=== PATIENT | female | born 1940 | race Caucasian/White ===

== ENCOUNTER → 2023-07-09 14:56 | Outpatient (REF) | payer OTHER, SELFPAY | LOC: WDC 14:56 | PROVIDERS: ATTENDING PHYSICIAN Internal Medicine | DX: Z12.31 Encounter for screening mammogram for malignant neoplasm of breast (principal) | CPT/HCPCS: 77062; 77063; 77066; 77067 ==

== ENCOUNTER → 2023-08-06 13:47 | Outpatient (REF) | payer OTHER, SELFPAY | LOC: RAD 13:47 | PROVIDERS: ATTENDING PHYSICIAN Internal Medicine | DX: T18.9XXA Foreign body of alimentary tract, part unspecified, initial encounter (principal) | CPT/HCPCS: 71046; 74018 ==

== ENCOUNTER → 2024-04-28 16:21 | Outpatient (REF) | payer MEDICARE, SELFPAY | LOC: RAD 16:21 | PROVIDERS: ATTENDING PHYSICIAN Internal Medicine Critical Care Medicine; FAMILY PHYSICIAN Internal Medicine | DX: J84.10 Pulmonary fibrosis, unspecified (principal); R59.0 Localized enlarged lymph nodes | CPT/HCPCS: 71250 ==

== ENCOUNTER 2024-05-12 15:56 | Emergency (ER) | payer MEDICARE, SELFPAY ==
[2024-05-12 16:02] VITALS: BP 133/78
[2024-05-12 16:19] LABS: % Basophils 0.5 % (0-2); % Eosinophils 4.7 % (0-6); % Immature Granulocytes 0.3 % (0-0.5); % Lymphocytes 16.7 % (20.5-51.1); % Monocytes 11.1 % (1.7-9.3); % Neutrophils 66.7 % (42.2-75.2); Absolute Basophils 0.1 10^3/uL (0-0.2); Absolute Eosinophils 0.5 10^3/uL (0-0.7); Absolute Lymphocytes 1.7 10^3/uL (1.2-3.4); Absolute Monocytes 1.1 10^3/uL (0.1-0.6); Absolute Neutrophils 6.7 10^3/uL (1.4-6.5); Hematocrit 30.9 % (37.0-47.0); Hemoglobin 10.5 g/dL (12.0-16.0); Mean Corpuscular Volume 94.2 fL (81.0-99.0); Nucleated Red Blood Cells % 0 %; Platelet Count 256 10^3/uL (130-400); Red Blood Cell Count 3.28 10^6/uL (4.20-5.40); Red Cell Dist. Width 13.4 % (11.5-14.5); White Blood Cell Count 10.1 10^3/uL (4.8-10.8)
[2024-05-12 16:32] LABS: ALT (SGPT) 20 U/L (0-35); AST (SGOT) 33 U/L (14-36); Albumin 3.9 g/dl (3.5-5.0); Alkaline Phosphatase 46 U/L (38-126); Blood Urea Nitrogen 28 mg/dl (7-17); Calcium 9.6 mg/dl (8.4-10.2); Carbon Dioxide 26 mmol/L (22-30); Chloride 103 mmol/L (98-107); Glucose 98 mg/dl (70-99); Sodium 136 mmol/L (135-145); Total Bilirubin 0.3 mg/dl (0.2-1.3); Total Protein 6.8 g/dl (6.3-8.2); eGFR > 60.00
[2024-05-12 16:37] LABS: Potassium 3.7 mmol/L (3.5-5.1)
[2024-05-12 16:50] LABS: Troponin I < 0.012 ng/ml
[2024-05-12 16:57] VITALS: BP 102/91
[2024-05-12 17:00] VITALS: BP 119/58
[2024-05-12 18:00] VITALS: BP 88/55
--- NOTE | 2024-05-12 18:00 | ED.GENMED ---
History of Present Illness
General
Chief Complaint: Chest Pain
Source: patient
Time Seen by Provider: 05/12/24 17:43
History of Present Illness
History of Present Illness:
83-year-old female presents complaining of left-sided chest comfort that started at 9 AM this morning. She was sitting at the table when this started. She has a history of severe scoliosis and often has left sided back discomfort. It felt like
her back discomfort radiated to her chest this morning. Since the pain started it has completely resolved. There is no pleuritic component to this. She is not short of breath. She is healthy otherwise. No other complaints at this time
Past History
Past History
ED Past Medical History: Hypercholesterolemia, Hypothyroidism and Other (Hypothyroidism, previous fractured ribs on the right posterior)
ED Past Surgical History: Appendectomy, , Gynecological (Hysterectomy) and Other (Thyroidectomy)
Social History
Tobacco: Smoker
Alcohol: None
Living: with family
Family History
Family History: Negative Diabetes, Early CAD or CAD
Phy Exam
Physical Exam
Physical Exam:
General: Well-appearing female no acute respiratory distress
HEENT: Normocephalic atraumatic neck is supple
Heart: Regular rate and rhythm no murmurs
Lungs: Clear no wheeze
Abdomen soft nontender nondistended
Extremities: No cyanosis
Scores
Heart Score for Chest Pain Patients
STEMI patient?: No
History: Slightly or Non-Suspicious
ECG: Normal
Age: >/= 65 years
Risk Factors: 1 or 2 Risk Factors
Troponin: </= Normal Limit
Heart Score for Chest Pain Patients: 3
Heart Score Risk: 2.5% MACE over next 6 weeks
Course
Orders/Labs/Results
Orders:
Orders
05/12/24 15:57
EKG [Electrocardiogram (*1)] Urgent
Reason for Study: Chest Pain
EKG- Treatment ONCE
05/12/24 16:12
Complete Blood Count/With Diff Urgent
Comprehensive Metabolic Panel Urgent
Troponin I Urgent
05/12/24 17:54
CR Chest - 2 Views Urgent
Comment:
Reason For Exam: chest pain
05/12/24 18:05
Troponin I Urgent
Abnormal Lab Results
05/12/24
16:12
RBC 3.28 L 10^6/uL
(4.20-5.40)
Hgb 10.5 L g/dL
(12.0-16.0)
Hct 30.9 L %
(37.0-47.0)
MCH 32.0 H pg
(27.0-31.0)
Absolute Neuts (auto) 6.7 H 10^3/uL
(1.4-6.5)
Absolute Monos (auto) 1.1 H 10^3/uL
(0.1-0.6)
Lymphocytes % 16.7 L %
(20.5-51.1)
Monocytes % 11.1 H %
(1.7-9.3)
BUN 28 H mg/dl
(7-17)
05/12/24 16:12
05/12/24 16:12
Vital Signs
Initial and Last Documented VS:
Initial Vital Signs
Temp Pulse Resp BP Pulse Ox
98.2 F 86 16 133/78 99
05/12/24 16:02 05/12/24 16:02 05/12/24 16:02 05/12/24 16:02 05/12/24 16:02
Last Documented Vital Signs
Temp Pulse Resp BP Pulse Ox
98.2 F 80 18 119/58 98
05/12/24 16:02 05/12/24 17:00 05/12/24 17:00 05/12/24 17:00 05/12/24 17:00
MDM/Problems Addressed
Differential Diagnosis Includes:
Left chest pain now resolved. Consider ACS versus musculoskeletal pain. Unlikely to be PE or dissection given resolution of symptoms and stable vital signs.
EKG shows sinus rhythm troponin initially undetectable. Repeat troponin is pending. Chest x-ray pending
*Critical Care Note
Total Time (30-74mins, 75-104mins- exclusive of procedures): Not Applicable
Update Note
Update Note:
Repeat troponin undetectable. Chest x-ray clear. Suspect musculoskeletal chest discomfort as source of pain however given her age, will refer to cardiology as outpatient
ED Attending Note
-
Portions of this chart may have been created with voice recognition software.� Occasional wrong word or��sound alike� substitutions may have occurred due to the inherent limitations of voice recognition software.
Discharge Plan
Departure
Patient Disposition: Home (Routine Discharge)
Date of Disposition: 05/12/24
Time of Disposition: 19:13
Patient with high blood pressure during this ER visit?: No
Discharge Problem:
Chest pain
Instructions: Chest Pain CBC Follow Up
Prescriptions:
No Action
paroxetine HCl 10 MG tablet
10 mg PO DAILY
alprazolam 0.5 MG tablet
0.5 mg PO PRN PRN (Reason: anxiety/sleep)
ascorbic acid (vitamin C) 250 MG tablet
500 mg PO DAILY
levothyroxine 75 MCG capsule
75 mcg PO DAILY
Calcium 60 MG Tab
60 mg PO TID
Vitamin D3 1 CAPSULE Capsule
2 cap PO DAILY
Referrals:
Natasha George NP [Family Provider] -
Activity Restrictions/Additional Instructions:
Please return here for worsening symptoms otherwise follow-up with your doctor. Cardiology office should call you to discuss follow-up
Interventions
Interventions:
*Risk Screen - Suicide Last Done: 05/12/24 16:02
*Neglect/Abuse Screening Last Done: 05/12/24 16:02
ED- Fall Risk Assessment Last Done: 05/12/24 19:05
ED- Cardiac Assessment Last Done: 05/12/24 19:05
Discharge Date and Time
Print Language: JAPANESE
[2024-05-12 18:49] LABS: Troponin I < 0.012 ng/ml
[2024-05-12 19:00] VITALS: BP 132/84
== END 2024-05-12 19:26 | disposition home or self-care (01) ==
LOC: EMR 15:56
PROVIDERS: Physician Assistant; EMERGENCY PHYSICIAN Emergency Medicine; FAMILY PHYSICIAN Internal Medicine
DX: R07.89 Other chest pain (principal); M41.9 Scoliosis, unspecified; E78.00 Pure hypercholesterolemia, unspecified; E03.9 Hypothyroidism, unspecified; F17.200 Nicotine dependence, unspecified, uncomplicated; Z90.49 Acquired absence of other specified parts of digestive tract; Z90.710 Acquired absence of both cervix and uterus
CPT/HCPCS: 99283; 71046; 80053; 84484; 85025; 93005

== ENCOUNTER 2024-05-14 16:13 | Emergency (ER) | payer MEDICARE, SELFPAY ==
[2024-05-14] VITALS (11 sets, daily range): BP systolic 103–132; BP diastolic 51–84
[2024-05-14 16:56] LABS: % Basophils 0.6 % (0-2); % Eosinophils 9.9 % (0-6); % Immature Granulocytes 0.4 % (0-0.5); % Lymphocytes 22.4 % (20.5-51.1); % Monocytes 10.6 % (1.7-9.3); % Neutrophils 56.1 % (42.2-75.2); Absolute Basophils 0.1 10^3/uL (0-0.2); Absolute Eosinophils 0.8 10^3/uL (0-0.7); Absolute Lymphocytes 1.8 10^3/uL (1.2-3.4); Absolute Monocytes 0.9 10^3/uL (0.1-0.6); Absolute Neutrophils 4.6 10^3/uL (1.4-6.5); Hematocrit 28.8 % (37.0-47.0); Mean Corp Hgb Conc. 34.7 g/dL (33.0-37.0); Mean Corpuscular Hgb 32.7 pg (27.0-31.0); Mean Corpuscular Volume 94.1 fL (81.0-99.0); Mean Platelet Volume 9.3 fL (7.4-10.4); Nucleated Red Blood Cells % 0 %; Platelet Count 289 10^3/uL (130-400); Red Blood Cell Count 3.06 10^6/uL (4.20-5.40); Red Cell Dist. Width 13.4 % (11.5-14.5); White Blood Cell Count 8.2 10^3/uL (4.8-10.8)
[2024-05-14 17:06] LABS: ALT (SGPT) 25 U/L (0-35); AST (SGOT) 36 U/L (14-36); Albumin 3.9 g/dl (3.5-5.0); Alkaline Phosphatase 50 U/L (38-126); Blood Urea Nitrogen 29 mg/dl (7-17); Calcium 9.8 mg/dl (8.4-10.2); Carbon Dioxide 26 mmol/L (22-30); Chloride 103 mmol/L (98-107); Glucose 108 mg/dl (70-99); Potassium 4.1 mmol/L (3.5-5.1); Sodium 138 mmol/L (135-145); Total Bilirubin 0.1 mg/dl (0.2-1.3); Total Protein 6.7 g/dl (6.3-8.2); eGFR > 60.00
[2024-05-14 17:15] LABS: Troponin I 0.015 ng/ml
[2024-05-14 22:46] LABS: Troponin I 0.018 ng/ml
--- NOTE | 2024-05-14 22:49 | ED.GENMED ---
History of Present Illness
General
Chief Complaint: Chest Pain
Time Seen by Provider: 05/14/24 22:09
History of Present Illness
History of Present Illness:
83-year-old female with history of scoliosis presenting to the emergency department for left-sided chest pain. Patient reports intermittent symptoms in the past several days, left-sided, radiates from her back. She believes that it is her
scoliosis that is worsening and causing her symptoms. She reports upon arrival to the hospital today her pain improved. Patient was additionally seen in the hospital on 03/12 for similar symptoms, negative workup at that time. She has since made
an appointment with orthopedics and cardiology. She arrives with son who lives with her who was also concerned that she had an episode of fatigue/weakness, and seemed to be slurring her words. She also seemed confused which is not her baseline.
Patient herself denies confusion or issues with her speech. She denies any recent fall or trauma. She denies any focal weakness or numbness to her extremities. She denies any visual changes. She denies additional acute medical complaints
Past History
Past History
ED Past Medical History: Hypercholesterolemia, Hypothyroidism and Other (Hypothyroidism, previous fractured ribs on the right posterior)
ED Past Surgical History: Appendectomy, , Gynecological (Hysterectomy) and Other (Thyroidectomy)
Social History
Tobacco: Smoker
Alcohol: None
Living: with family
Family History
Family History: Negative Diabetes, Early CAD or CAD
Phy Exam
Physical Exam
Physical Exam:
General: Well-appearing, no clinical signs of dehydration, nontoxic and in no acute distress
HEENT: protecting airway, pupils equal and reactive bilaterally, extraocular movements intact
Neck: appears supple
CV: Normal heart rate, regular rhythm
Resp: No accessory muscle use, no increased work of breathing, lungs clear to auscultation bilaterally
Abd: Soft and non-distended, no tenderness to palpation, normal bowel sounds
Extremities: No deformities, no swelling
Neuro: alert, no focal neurologic deficit
: deferred
Rectal: deferred
Psych: Normal affect
Skin: Intact
Scores
Heart Score for Chest Pain Patients
STEMI patient?: No
History: Slightly or Non-Suspicious
ECG: Normal
Age: >/= 65 years
Risk Factors: 1 or 2 Risk Factors
Troponin: </= Normal Limit
Heart Score for Chest Pain Patients: 3
Heart Score Risk: 2.5% MACE over next 6 weeks
Course
Orders/Labs/Results
Orders:
Orders
05/14/24 16:15
ECG [Electrocardiogram (*1)] Urgent
Reason for Study: Chest Pain
EKG- Treatment ONCE
05/14/24 16:39
Complete Blood Count/With Diff Urgent
Comprehensive Metabolic Panel Urgent
Troponin I Urgent
05/14/24 17:58
CT Head W/o Iv Contrast Urgent
Comment:
Reason For Exam: garbled speech
05/14/24 22:15
Troponin I Urgent
Abnormal Lab Results
05/14/24
16:39
RBC 3.06 L 10^6/uL
(4.20-5.40)
Hgb 10.0 L g/dL
(12.0-16.0)
Hct 28.8 L %
(37.0-47.0)
MCH 32.7 H pg
(27.0-31.0)
Absolute Monos (auto) 0.9 H 10^3/uL
(0.1-0.6)
Absolute Eos (auto) 0.8 H 10^3/uL
(0-0.7)
Monocytes % 10.6 H %
(1.7-9.3)
Eosinophils % 9.9 H %
(0-6)
BUN 29 H mg/dl
(7-17)
Glucose 108 H mg/dl
(70-99)
Total Bilirubin 0.1 L mg/dl
(0.2-1.3)
05/14/24 16:39
05/14/24 16:39
Vital Signs
Initial and Last Documented VS:
Initial Vital Signs
Temp Pulse Resp BP Pulse Ox
97.7 F 84 20 132/84 100
05/14/24 16:33 05/14/24 16:33 05/14/24 16:33 05/14/24 16:33 05/14/24 16:33
Last Documented Vital Signs
Temp Pulse Resp BP Pulse Ox
97.7 F 96 15 107/69 95
05/14/24 16:33 05/14/24 23:13 05/14/24 23:15 05/14/24 23:13 05/14/24 23:13
MDM/Problems Addressed
MDM/Problems Addressed:
83-year-old female presenting to the emergency department for left-sided chest pain and episode of confusion. Vital signs on arrival are normal.
On exam patient is resting comfortably, currently asymptomatic. Patient with unremarkable cardiac, pulmonary, neurologic exam. She is awake, alert, oriented x 3 with no focal neurologic. Patient had EKG prior to my assessment, unchanged from
05/11 without acute ischemic abnormality. Patient also had laboratory analysis, unremarkable. Per nursing protocol and report of preceding confusion and episode of garbled speech, patient had a CT brain, also negative for acute intracranial
abnormality. Given that patient is asymptomatic and no focal neurologic deficits, lower suspicion for acute CVA. Patient's initial troponin here is 0.015, within normal range, however slightly increased from prior on 05/12. For this reason we
will repeat to ensure no significant interval change. Do suspect possible musculoskeletal component.
23:00 - Repeat troponin without significant interval elevation. Patient remains asymptomatic. Feel stable for discharge with close interval follow-up with cardiology. Regarding brief episode of garbled speech and alleged confusion, TIA is a
consideration. Patient at this time would prefer to go home, feel reasonable. However, with close interval follow-up with her doctor. Strict return precautions were communicated to patient and son at bedside, advise looking out for any change in
mental status, or any additional acute neurologic symptoms. Patient and son verbalized understanding.
*EKG
Interpreted by ED Provider?: Yes
EKG Intrepretation Date: 05/14/24
EKG Intrepretation Time: 22:52
Interpretation: normal
Comparison EKG: no changes (05/11/24)
Heart Rate: 80
Rate: normal
Rhythm: sinus
[place]: normal axis
Interval: normal interval
QRS Pattern: normal QRS
Ischemia: no ischemia
*Critical Care Note
Total Time (30-74mins, 75-104mins- exclusive of procedures): Not Applicable
ED Attending Note
-
Portions of this chart may have been created with voice recognition software.� Occasional wrong word or��sound alike� substitutions may have occurred due to the inherent limitations of voice recognition software.
Discharge Plan
Departure
Patient Disposition: Home (Routine Discharge)
Date of Disposition: 05/14/24
Time of Disposition: 23:05
Patient with high blood pressure during this ER visit?: No
Condition: Good
Discharge Problem:
Chest pain, Episode of change in speech
Instructions: Delirium (confusion), Chest pain - Discharge instructions
Prescriptions:
No Action
paroxetine HCl 10 MG tablet
10 mg PO DAILY
alprazolam 0.5 MG tablet
0.5 mg PO PRN PRN (Reason: anxiety/sleep)
ascorbic acid (vitamin C) 250 MG tablet
500 mg PO DAILY
levothyroxine 75 MCG capsule
75 mcg PO DAILY
Calcium 60 MG Tab
60 mg PO TID
Vitamin D3 1 CAPSULE Capsule
2 cap PO DAILY
Referrals:
Natasha George NP [Family Provider] -
Activity Restrictions/Additional Instructions:
You were seen in the emergency department for chest pain and an episode of confusion
You were found to have normal blood work, EKG, CT imaging of your brain.
Please follow-up closely with your primary care physician, as well as the carriage dogger.
Return to the emergency department for any worsening of your symptoms, or any development of chest pain, difficulty breathing, abdominal pain with persistent vomiting and inability to tolerate food or liquid by mouth (concern for dehydration),
weakness or numbness to your extremity, headache or confusion, fever greater than 100.4, or any additional symptoms that are concerning to you.
Thank you for choosing [facility].
Interventions
Interventions:
*Risk Screen - Suicide Last Done: 05/14/24 20:40
*General Assessment Last Done: 05/14/24 20:40
*Neglect/Abuse Screening Last Done: 05/14/24 20:40
ED- Fall Risk Assessment Last Done: 05/14/24 20:40
*ED COVID-19 Vaccine History Last Done: 05/14/24 20:40
*Nursing Disposition Last Done: 05/14/24 23:19
ED- Cardiac Assessment Last Done: 05/14/24 20:40
Discharge Date and Time
Discharge Date/Time: 05/14/24 23:20
Print Language: ANGUILLAN
== END 2024-05-14 23:20 | disposition home or self-care (01) ==
LOC: EMR 16:13
PROVIDERS: Emergency Medicine; EMERGENCY PHYSICIAN Student in an Organized Health Care Education/Training Program; FAMILY PHYSICIAN Internal Medicine
DX: R07.89 Other chest pain (principal); R47.81 Slurred speech; F17.200 Nicotine dependence, unspecified, uncomplicated
CPT/HCPCS: 99284; 70450; 80053; 84484; 85025; 93005

== ENCOUNTER 2024-05-17 18:29 | Inpatient (IN) | payer MEDICARE, SELFPAY ==
[2024-05-17] VITALS (20 sets, daily range): BP systolic 89–133; BP diastolic 44–93; BMI 22.6
[2024-05-17 16:28] LABS: ALT (SGPT) 22 U/L (0-35); AST (SGOT) 33 U/L (14-36); Albumin 3.5 g/dl (3.5-5.0); Alkaline Phosphatase 38 U/L (38-126); Blood Urea Nitrogen 43 mg/dl (7-17); Calcium 9.3 mg/dl (8.4-10.2); Carbon Dioxide 24 mmol/L (22-30); Chloride 102 mmol/L (98-107); Glucose 141 mg/dl (70-99); Potassium 3.5 mmol/L (3.5-5.1); Sodium 136 mmol/L (135-145); Total Bilirubin 0.3 mg/dl (0.2-1.3); eGFR > 60.00
--- NOTE | 2024-05-17 16:32 | ED.GENMED ---
History of Present Illness
General
Chief Complaint: Abdominal Symptoms
Source: patient
Time Seen by Provider: 05/17/24 16:13
History of Present Illness
History of Present Illness:
83-year-old female presents to the emergency room after experiencing an episode of hematemesis at home. About 1 hour prior to arrival the patient states she vomited a large amount of blood. Patient has been experiencing some chest pain over the
past week for which she has been in the ER a couple times. Cardiac workup has been negative. Patient endorses taking ibuprofen for chronic back pain. Daughter states the patient's been taking at least 800 mg twice a day. Patient endorses some
black tarry stool over the past couple days. She feels generally unwell. She endorses some dizziness when she stands up. Patient has a distant history of an upper GI bleed approximately 60 years ago which did require transfusions.
Past History
Past History
ED Past Medical History: Hypercholesterolemia, Hypothyroidism and Other (Hypothyroidism, previous fractured ribs on the right posterior)
ED Past Surgical History: Appendectomy, , Gynecological (Hysterectomy) and Other (Thyroidectomy)
Social History
Tobacco: Smoker
Alcohol: None
Living: with family
Family History
Family History: Negative Diabetes, Early CAD or CAD
Phy Exam
Physical Exam
Physical Exam:
General: Awake, Alert, Oriented X3. No acute distress appears stated age
Vitals: Mildly hypotensive
Head: Atraumatic
Eyes: Pupils equal, EOMI, pale conjunctiva
Throat: Airway intact, no exudates
Neck: Trachea midline
Lungs: Clear and equal b/l
Heart: Regular rate, no murmurs
Abd: Soft, Nontender, No pulsatile mass
Rectal: Empty rectal vault
Neuro: Nonfocal
Skin: Pale, warm, dry, no rash
Extremities: pulses equal b/l, no edema
Course
Orders/Labs/Results
Orders:
Orders
05/17/24 Dinner
NPO
Allow oral meds: Yes
Allow clear liquids: Sips of Clears
05/17/24 16:02
Type And Crossmatch [Type+Screen] Urgent
Complete Blood Count/With Diff Urgent
Comprehensive Metabolic Panel Urgent
05/17/24 16:24
Lactated Ringers [Lr] 500 ml IV BOLUS
Pantoprazole 80 mg/100 ml Nss [Protonix] 80 mg in 100 ml IV NOW
Pantoprazole [Protonix IV] 80 mg IV NOW STA
05/17/24 16:25
IV Insert/Care/Rem.- Treatment PRN
05/17/24 16:34
ABO2 Urgent
BBK Wristband Number:
Associate notified that ABO2 has been ordered: [id number]
Date: 05/17/24
Time: 16:21
Template Storage Clerk ID: [id number]
05/17/24 17:17
Blood Bank Products [* Blood Bank Products] Stat
Blood Bank Products: *Packed RBC Leuko(PRBC's)
Quantity: 2
Transfuse Today: Yes
Reason: Bleeding
05/17/24 17:32
Lactated Ringers [Lr] 500 ml IV BOLUS
05/17/24 18:00
Admit/Transfer Patient As Directed
Co-Sign Provider:
Level of Care: Inpatient admission
Assign to:: ICU
Physician / Group: jose
Diagnosis: hemorrhagic shock
Reason for Hospitalization: hemorrhagic shock
Expected length of stay greater than two midnights?: Yes
ELOS- Estimated Length of Stay in days: 2
I certify the patient meets the requirements for IP care: Yes
Code Status As Directed
Resuscitation Status: Full Code
PRN Pain Medication Management As Directed
May give lesser potent ordered pain med per pt: Yes
preference::
Protocol:: Medication orders for pain may be administered in a
manner that supports deferring to patient preference
when the pt is:
- Requesting an ordered lesser potent pain medication.
Least to most potent pain medications are defined
as: acetaminophen < NSAID < tramadol < opioids
(morphine, oxycodone, hydromorphone).
- Requesting a lesser dose of the same medication IF
ORDERED.
- Requesting a less intrusive route of administration
if both routes are prescribed by the provider (PO <
IV).
05/17/24 22:00
0.9% Sodium Chloride 1000 ml [Nss] 1,000 ml IV 100 mls/hr
Acetaminophen with Codeine [Tylenol #3] 1 tablet PO Q6HPRN PRN
Alprazolam [Xanax] 0.5 mg PO HSPRN PRN
Pantoprazole 80 mg/100 ml Nss [Protonix] 80 mg in 100 ml IV Q10H
Rosuvastatin Calcium [Crestor] 5 mg PO HS
amoxicillin 875 mg PO BID
azelastine-fluticasone 1 spray NASAL BIDPRN PRN
05/17/24 22:00
GASTROINTESTINAL CONSULT Routine
Consulting Provider: Gem Hughes
Was physician already notified: Yes
Activity As Directed
Activity Level: As Tolerated
Pneumatic Compression Sleeves As Directed
Type: Knee high
Vital Signs As Directed
Frequency: Per unit guidelines
DX Deep Vein Thrombosis Video Routine
05/18/24 06:00
Complete Blood Count/With Diff IN AM
Comprehensive Metabolic Panel IN AM
05/18/24 08:00
Ascorbic Acid [Vitamin C] 500 mg PO DAILY
Cholecalciferol (Vitamin D3) [VITAMIN D3 (cholecalciferol)] 50 mcg PO DAILY
Paroxetine [Paxil] 10 mg PO DAILY
biotin 5 mg PO DAILY
calcium carbonate [Calcium 600] 600 mg PO DAILY
levothyroxine 75 mcg PO DAILY
Abnormal Lab Results
05/17/24
16:02
RBC 1.95 L 10^6/uL
(4.20-5.40)
Hgb 6.2 L* D g/dL
(12.0-16.0)
Hct 18.5 L* %
(37.0-47.0)
MCH 31.8 H pg
(27.0-31.0)
Abs Immat Gran (auto) 0.1 H 10^3/uL
(0-0.05)
Immature Gran % 0.7 H %
(0-0.5)
BUN 43 H mg/dl
(7-17)
Glucose 141 H mg/dl
(70-99)
Total Protein 6.0 L g/dl
(6.3-8.2)
Antibody Screen Positive A
(Negative)
Crossmatch IS Only See Detail
MTS Gel Crossmatch See Detail
05/17/24 16:02
05/17/24 16:02
Vital Signs
Initial and Last Documented VS:
Initial Vital Signs
Temp Pulse Resp BP Pulse Ox
98.4 F 84 14 89/49 100
05/17/24 15:52 05/17/24 15:52 05/17/24 15:52 05/17/24 15:52 05/17/24 15:52
Last Documented Vital Signs
Temp Pulse Resp BP Pulse Ox
98.2 F 73 16 117/62 99
05/17/24 21:42 05/17/24 21:42 05/17/24 21:42 05/17/24 21:42 05/17/24 21:42
MDM/Problems Addressed
Differential Diagnosis Includes:
Upper GI bleed from peptic ulcer disease, gastritis, duodenal ulcer.
MDM/Problems Addressed:
Patient presents after an episode hematemesis. She looks ill. Her vital signs reveal soft blood pressure. Hemoglobin is significantly low at 6.2. This is a drop of 4 g in just 3 days. IV fluid bolus given while awaiting cross blood to be
available. Patient had a positive antibody screen. Had conversations with multiple consultants including pathologist, bench precision assembler, GI. Patient clearly needs blood and we waited as long as possible for the blood bank to identify the source of her
positive antibody screen. Based on my conversations with pathology they were relatively certain that the antibodies involved were D and C and they were able to identify units compatible for the patient. The full workup would include repeating some
of these test per hospital policy. However we do not have the time to await this confirmatory test. Therefore blood was administered under emergency release protocol though again it was felt that the antibody or antibodies had been adequately
ascertained patient was informed of the need to give her emergency release blood and was in agreement. Family also present during these conversations. Protonix also given for upper GI bleed.
Chronic conditions affecting care: Other (Scoliosis)
*Pulse Oximetry
Patient hypoxic: no
*Receiving Tank Operator Interpretation
Rate: normal
Interpretation: normal
Rhythm: sinus
*Critical Care Note
Total Time (30-74mins, 75-104mins- exclusive of procedures): 55 min
comment:
Critical care statement: A total of 55 minutes of critical care time was provided for this patient. This includes management of unstable vital signs, evaluation of the patient at bedside, reviewing the patient's pertinent medical records, discussion
with consultants, review of old EKGs and review of pertinent medical records. This time with separate from time utilized to perform the aforementioned documented procedures
ED Attending Note
-
Portions of this chart may have been created with voice recognition software.� Occasional wrong word or��sound alike� substitutions may have occurred due to the inherent limitations of voice recognition software.
Discharge Plan
Departure
Patient Disposition: Admit
Date of Disposition: 05/17/24
Time of Disposition: 17:44
Admit to: ICU
Presentation/result/management discussed w/ accepting MD/DO: Hospitalist
Condition: Critical
Discharge Problem:
Acute upper GI bleed
Interventions
Interventions:
*Risk Screen - Suicide Last Done: 05/17/24 15:52
*General Assessment Last Done: 05/17/24 15:52
*Neglect/Abuse Screening Last Done: 05/17/24 15:52
*ED COVID-19 Vaccine History Last Done: 05/17/24 16:35
*Nursing Disposition Last Done: 05/17/24 22:12
JD-Slinbo-Urjncvyszi Assessment Last Done: 05/17/24 16:46
Discharge Date and Time
Discharge Date/Time: 05/17/24 22:13
[2024-05-17] MEDS: PROTONIX 100 IV (16:38)
[2024-05-17] MEDS: PROTONIX IV 80 MG IV (16:38)
[2024-05-17] MEDS: LR 500 IV ×2 (16:39→17:43)
[2024-05-17 17:17] LABS: % Basophils 0.3 % (0-2); % Eosinophils 4.2 % (0-6); % Immature Granulocytes 0.7 % (0-0.5); % Lymphocytes 22.2 % (20.5-51.1); % Monocytes 6.3 % (1.7-9.3); % Neutrophils 66.3 % (42.2-75.2); Absolute Eosinophils 0.4 10^3/uL (0-0.7); Absolute Immature Granulocytes 0.1 10^3/uL (0-0.05); Absolute Lymphocytes 2.1 10^3/uL (1.2-3.4); Absolute Monocytes 0.6 10^3/uL (0.1-0.6); Absolute Neutrophils 6.1 10^3/uL (1.4-6.5); Hematocrit 18.5 % (37.0-47.0); Hemoglobin 6.2 g/dL (12.0-16.0); Mean Corp Hgb Conc. 33.5 g/dL (33.0-37.0); Mean Corpuscular Hgb 31.8 pg (27.0-31.0); Mean Corpuscular Volume 94.9 fL (81.0-99.0); Mean Platelet Volume 9.5 fL (7.4-10.4); Nucleated Red Blood Cells % 0.3 %; Platelet Count 290 10^3/uL (130-400); Red Blood Cell Count 1.95 10^6/uL (4.20-5.40); Red Cell Dist. Width 13.7 % (11.5-14.5); White Blood Cell Count 9.2 10^3/uL (4.8-10.8)
--- NOTE | 2024-05-17 18:04 | HPS.HSE ---
Family Physician
-
Family Physician: Natasha George
Chief Complaint
-
hematemesis
History of Present Illness
83-year-old female past medical history of hypercholesteremia, hypothyroidism, scoliosis, presenting with hematemesis at home. 1 hour prior to arrival she vomited a large amount of red blood. She has been having chest pain over the past week has
been to the emergency room a few times. Cardiac workup has been negative. She has been taking ibuprofen for chronic back pain at least twice a day. She felt like she had fecal impaction 2 days ago and manually disimpact herself. She had a black
tarry stool 2 days ago she has some dizziness when she stands up.
She has been complaining of pain in her epigastric/chest region described as aching.
She had root canal performed today. She has been started on amoxicillin today to be continued for approximately 7 days.
She had a history of upper GI bleeding 60 years ago which required blood transfusions. She did not have endoscopy at that time.
She denies smoking or alcohol use.
No family history of colon cancer, rectal bleeding or liver problems.
Medical History
Past Medical History
Past Medical History: Reports Other (hypercholesteremia, hypothyroidism, scoliosis)
Past Surgical History: Reports Other (Appendectomy, , Gynecological (Hysterectomy) and Other (Thyroidectomy))
Social History
Tobacco: Non-smoker
Alcohol: None
Drug: None
Family History
Family History: Not pertinent
Allergies / Home Medications
Allergies reflects when Allergies were last updated in [facility].
Home Medications with original date entered in [facility]
Allergy/Medication List:
Allergies
Allergy/AdvReac Type Severity Reaction Status Date / Time
No Known Allergies Allergy Verified 05/12/24 16:02
Home Medications
alprazolam 0.5 mg tablet 0.5 mg PO HSPRN PRN anxiety/sleep 09/25/21
calcium carbonate (Calcium 600) 600 mg PO DAILY 09/25/21
cholecalciferol (vitamin D3) 50 mcg (2,000 unit) tablet (Vitamin D3) 50 mcg PO DAILY 09/25/21
levothyroxine 75 mcg capsule 75 mcg PO DAILY 09/25/21
paroxetine HCl 10 mg tablet 10 mg PO DAILY 09/25/21
acetaminophen 300 mg-codeine 30 mg tablet 1 tab PO Q6HPRN PRN severe pain 05/17/24
amoxicillin 875 mg tablet 875 mg PO BID 05/17/24
ascorbic acid (vitamin C) 500 mg chewable tablet (Vitamin C) 500 mg PO DAILY 05/17/24
azelastine 137 mcg-fluticasone 50 mcg/spray nasal spray 1 spray intranasal BIDPRN PRN congestion 05/17/24
biotin 5 mg tablet 5 mg PO DAILY 05/17/24
ibuprofen 200 mg tablet 800 mg PO BID 05/17/24
rosuvastatin 5 mg tablet 5 mg PO HS 05/17/24
Review of Systems
-
History Source: Patient
A 12 point ROS was completed and negative except as noted: Yes
Constitutional: Reports No Symptoms
EENT: Reports No Symptoms
Respiratory: Reports See HPI
Cardiac: Reports See HPI
Abdomen/GI: Reports See HPI
: Reports No Symptoms
Musculoskeletal: Reports No Symptoms
Skin: Reports No Symptoms
Neurological: Reports No Symptoms
Endocrine: Reports No Symptoms
Hematologic/Lymphatic: Reports No Symptoms
Psych: Reports No Symptoms
Physical Exam
Vital Signs
Vital Signs
Temp Pulse Resp BP Pulse Ox
98.4 F 67 20 98/44 100
05/17/24 15:52 05/17/24 17:45 05/17/24 17:15 05/17/24 17:00 05/17/24 15:52
Physical Exam
General: Well Developed, Well Nourished and No Apparent Distress
HEENT: NormoCephalic, Moist mucous membranes and Atraumatic
Respiratory: Clear
Cardiac: S1/S2 and Regular Rhythm; No Murmur or Rub
GI: Soft, Non Tender, Non Distended and Normal Bowel Sounds; No Organomegaly
Rectal: Deferred by Provider
Musculoskeletal: No Clubbing, No Cyanosis and No Edema
Skin: No Rash
Neuro: Nonfocal/grossly intact
Laboratory Results
-
05/17/24 16:02
05/17/24 16:02
Laboratory Results
Total Bilirubin 0.3 mg/dl (0.2-1.3) 05/17/24 16:02
AST 33 U/L (14-36) 05/17/24 16:02
ALT 22 U/L (0-35) 05/17/24 16:02
Alkaline Phosphatase 38 U/L (38-126) 05/17/24 16:02
Data Reviewed
-
Lab Data: Labs Reviewed by me
Old Records: Reviewed
Impression/Plan
-
IMPRESSION:
PLAN:
# Hemorrhagic shock secondary to upper GI bleeding likely peptic ulcer secondary to NSAID use
# Epigastric/chest pain suggestive of ulcer
# Acute symptomatic blood loss anemia
-Blood pressure initially 89/49
-Hemoglobin of 6.2
-IV fluids
-2 units of blood although patient has antibodies, emergent blood approved
-Check iron studies, B12
-N.p.o.
-Hold ibuprofen
-Protonix drip
-GI consulted
# Root canal performed today
-Continue amoxicillin started today
Hypercholesteremia
-Continue statin
History of thyroidectomy/hypothyroidism
-Continue levothyroxine
Anxiety/depression
-Continue paroxetine
Scoliosis
History of hysterectomy for polyp
Full code
DVT prophylaxis�SCDs
N.p.o.
--- NOTE | 2024-05-17 19:26 | CON.GI ---
Consultation
-
Date/Time Consultation Requested: 05/17/2024, 4:30 pm
Date/Time Consultation Performed: 05/17/2024, 6:30 pm
Requesting Provider: Dr. Rebollar
Performing Provider: Dr. Hughes
Reason for Consultation: hematemesis
Medical History
Chief Complaint / HPI
Chief Complaint: hematemesis
History of Present Illness:
This is an 83-year-old female past medical history of scoliosis and headaches requiring NSAIDs presenting with hematemesis 1 hour prior to ER visit. She does note she had some black stool 3 days prior to ER visit. She had not had any stools today
or yesterday. She denies any abdominal pain to me but seems to have elicited to other providers as an achiness. She does states she has been queasy and vomited on Friday as well but no blood at that time. General unwell feeling and dizzy with
standing up.
Denies any history of disease, history of GI bleed in the 1960s and required 5 units of blood at that time. Never had an upper endoscopy, last colonoscopy was 3 to 4 years ago in [place] which was normal to her recollection.
Past Medical History
Past Medical History: Hypercholesterolemia and Hypothyroidism
Past Surgical History: Appendectomy, Gynecological (hysterectomy, c section) and Other (thyroid)
Social History
Tobacco: Non-Smoker
Alcohol: None
Drug: None
Family History
Family History: Reviewed & Not Pertinent
Allergies / Home Medications
Allergy/AdvReac Type Severity Reaction Status Date / Time
No Known Allergies Allergy Verified 05/12/24 16:02
�Medication �Instructions �Recorded
alprazolam 0.5 mg tablet 0.5 mg PO HSPRN PRN anxiety/sleep 09/25/21
calcium carbonate (Calcium 600) 600 mg PO DAILY 09/25/21
cholecalciferol (vitamin D3) 50 50 mcg PO DAILY 09/25/21
mcg (2,000 unit) tablet (Vitamin
D3)
levothyroxine 75 mcg capsule 75 mcg PO DAILY 09/25/21
paroxetine HCl 10 mg tablet 10 mg PO DAILY 09/25/21
acetaminophen 300 mg-codeine 30 mg 1 tab PO Q6HPRN PRN severe pain 05/17/24
tablet
amoxicillin 875 mg tablet 875 mg PO BID 05/17/24
ascorbic acid (vitamin C) 500 mg 500 mg PO DAILY 05/17/24
chewable tablet (Vitamin C)
azelastine 137 mcg-fluticasone 50 1 spray intranasal BIDPRN PRN 05/17/24
mcg/spray nasal spray congestion
biotin 5 mg tablet 5 mg PO DAILY 05/17/24
ibuprofen 200 mg tablet 800 mg PO BID 05/17/24
rosuvastatin 5 mg tablet 5 mg PO HS 05/17/24
Review of Systems
-
All other systems: A 12 pt ROS was Negative except as stated above in HPI
Vital Signs
Temp Pulse Resp BP Pulse Ox
97.8 F 71 17 112/53 96
05/17/24 18:56 05/17/24 19:15 05/17/24 19:15 05/17/24 19:00 05/17/24 18:54
Physical Exam
Exam
General: Other (pale)
HEENT: Normocephalic
Respiratory: Clear
Cardiac: S1/S2
GI: Soft and Non Tender
Musculoskeletal: No Clubbing
Skin: Warm
Neuro: AO x 3
Psych: Calm
Results
WBC 9.2 10^3/uL (4.8-10.8) 05/17/24 16:02
Hgb 6.2 g/dL (12.0-16.0) L* D 05/17/24 16:02
Hct 18.5 % (37.0-47.0) L* 05/17/24 16:02
MCV 94.9 fL (81.0-99.0) 05/17/24 16:02
Plt Count 290 10^3/uL (130-400) 05/17/24 16:02
Absolute Neuts (auto) 6.1 10^3/uL (1.4-6.5) 05/17/24 16:02
Sodium 136 mmol/L (135-145) 05/17/24 16:02
Potassium 3.5 mmol/L (3.5-5.1) 05/17/24 16:02
Chloride 102 mmol/L (98-107) 05/17/24 16:02
Carbon Dioxide 24 mmol/L (22-30) 05/17/24 16:02
BUN 43 mg/dl (7-17) H 05/17/24 16:02
Creatinine 0.8 mg/dL (0.6-1.0) 05/17/24 16:02
Calcium 9.3 mg/dl (8.4-10.2) 05/17/24 16:02
Total Bilirubin 0.3 mg/dl (0.2-1.3) 05/17/24 16:02
AST 33 U/L (14-36) 05/17/24 16:02
ALT 22 U/L (0-35) 05/17/24 16:02
Alkaline Phosphatase 38 U/L (38-126) 05/17/24 16:02
Diagnostic Image Results:
Prior GI Procedures:
EGD:
Colonoscopy:
Assessment / Plan
-
This is an 83-year-old female presenting with hematemesis and melena in the setting of NSAIDs. BP systolic as low as 89, no tachycardia (no BB listed on home meds). Most likely has peptic ulcer disease from NSAIDs. Plan for upper endoscopy
tomorrow. Risk, alternatives, benefits discussed with patient and family at bedside risks including but not limited to bleeding, infection, perforation. Continue PPI drip. Continue NPO. Plan for blood transfusion patient has antibodies which has
been delaying transfusion. Trend Hb. D/w ER. Please call if pt has ongoing vomiting of blood and or is unstable.
-
-
Thank you for consultation and allowing me to participate in the patient's care. Please call the risk control consultant GI physician during the after hours with any questions or concerns.
--- NOTE | 2024-05-17 23:00 | PTCARENOTE ---
Pt arrived to floor via stretcher from the ED. Pt AAOx3, Pt assisted with bed schmidt, voided without issues. Pt able to move around in bed independently without difficulty. HR in the 70's in NSR on the monitor. Lungs clear. POX 98% on RA. Hyper bowel.
No BM at this time. Palpable peripheral pulses present. Brown discoloration of lower legs. Pale skin. Right AC int infusing Protonix gtt as ordered. Left AC int infusing 2nd unit RBC's. Pt reports pain in left temperal head/ due to dental implant
placement earlier in the day. Awaiting pharmacy verification to administer pain medication as ordered. Pt refusing knee high seq. Pt denies any other complaints at this time. Call mendez in reach. Will continue to monitor.
[2024-05-17] MEDS: ULTRAM 25 MG PO (23:24)
[2024-05-17] MEDS: PROTONIX IV (23:27)
[2024-05-17] MEDS: XANAX 0.5 MG PO (23:34)
[2024-05-17] MEDS: NSS 1000 IV (23:38)
[2024-05-18] VITALS (22 sets, daily range): BP systolic 95–139; BP diastolic 44–94; BMI 23.4
[2024-05-18] MEDS: CRESTOR 5 MG PO ×2 (00:40→21:39)
[2024-05-18] MEDS: TYLENOL #3 1 TABLET PO ×2 (00:40→19:26)
[2024-05-18 01:07] LABS: PT 13.7 Sec (11.4-14.6)
[2024-05-18 01:08] LABS: Hematocrit 24.6 % (37.0-47.0); Hemoglobin 8.6 g/dL (12.0-16.0)
[2024-05-18] MEDS: PROTONIX 100 IV ×3 (01:56→21:37)
--- NOTE | 2024-05-18 02:32 | PTCARENOTE ---
Pt sleeping, pox sustaining 88% on RA. 2 LO2 NC applied. POX now 99%. Pt denies any complaints at this time. Pt reports pain at tolerable level. IVF/ Protonix gtt infusing as ordered. Will continue to monitor.
[2024-05-18] MEDS: SYNTHROID 75 MCG PO (04:50)
[2024-05-18 05:19] LABS: APTT 29.2 Sec (23.4-35.0)
[2024-05-18 05:20] LABS: ALT (SGPT) 18 U/L (0-35); AST (SGOT) 27 U/L (14-36); Albumin 2.6 g/dl (3.5-5.0); Alkaline Phosphatase 33 U/L (38-126); Blood Urea Nitrogen 32 mg/dl (7-17); Calcium 8.1 mg/dl (8.4-10.2); Carbon Dioxide 23 mmol/L (22-30); Chloride 106 mmol/L (98-107); Estimated Creatinine Clearance 38 ml/min; Glucose 89 mg/dl (70-99); Potassium 3.1 mmol/L (3.5-5.1); Sodium 137 mmol/L (135-145); Total Bilirubin 0.6 mg/dl (0.2-1.3); Total Protein 4.9 g/dl (6.3-8.2); eGFR > 60.00
[2024-05-18 05:27] LABS: % Basophils 0.7 % (0-2); % Eosinophils 6.3 % (0-6); % Immature Granulocytes 0.8 % (0-0.5); % Lymphocytes 24.2 % (20.5-51.1); % Monocytes 8.9 % (1.7-9.3); % Neutrophils 59.1 % (42.2-75.2); Absolute Basophils 0.1 10^3/uL (0-0.2); Absolute Eosinophils 0.5 10^3/uL (0-0.7); Absolute Immature Granulocytes 0.1 10^3/uL (0-0.05); Absolute Lymphocytes 1.8 10^3/uL (1.2-3.4); Absolute Monocytes 0.7 10^3/uL (0.1-0.6); Absolute Neutrophils 4.5 10^3/uL (1.4-6.5); Hematocrit 21.9 % (37.0-47.0); Hemoglobin 7.8 g/dL (12.0-16.0); Mean Corp Hgb Conc. 35.6 g/dL (33.0-37.0); Mean Corpuscular Hgb 30.7 pg (27.0-31.0); Mean Corpuscular Volume 86.2 fL (81.0-99.0); Mean Platelet Volume 9.5 fL (7.4-10.4); Nucleated Red Blood Cells % 0.3 %; Platelet Count 215 10^3/uL (130-400); Red Blood Cell Count 2.54 10^6/uL (4.20-5.40); Red Cell Dist. Width 15.9 % (11.5-14.5); White Blood Cell Count 7.6 10^3/uL (4.8-10.8)
[2024-05-18] MEDS: KCL 270 MEQ IV (06:06)
[2024-05-18] MEDS: OSCAL CAL 500 1500 MG PO (07:48)
[2024-05-18] MEDS: VITAMIN D3 (cholecalciferol) 50 MCG PO (07:48)
[2024-05-18] MEDS: VITAMIN C 500 MG PO (07:48)
[2024-05-18] MEDS: PAXIL 10 MG PO (07:48)
--- NOTE | 2024-05-18 09:59 | CON.INTV ---
Consultation
Consultation Request
Date/Time Consultation Requested: 05/18/2024
Date/Time Consultation Performed: 05/18/2024
Requesting Provider: Dr. Matos
Performing Provider: Dr. Darryl Hamilton
Reason for Consultation: Acute upper GI bleed
Medical History
-
History of Present Illness:
83-year-old female with past medical history significant for hypercholesterolemia, hypothyroidism, scoliosis, presented with bloody emesis at home. Approximately 1 hour prior to arrival patient vomited red blood. Over the past week she has been
complaining of chest pain and evaluated at the emergency room a few times.
Cardiac workup has been negative.
Patient has been taking ibuprofen for chronic pain twice a week.
She manually disimpacted herself due to constipation and fecal impaction.
Did report some tarry black stools with dizziness at home.
The day of admission she underwent a root canal and she was placed on amoxicillin.
In the emergency room, patient was found to be hypotensive, hemoglobin 6.2 significant drop compared to recent.
Received IV fluid resuscitation
Her blood type and screen has some antibodies, emergent blood transfusion was given due to ongoing shock.
Past Medical History
Past Medical History: Other (See assessment and plan)
Social History
Tobacco: Non-smoker
Alcohol: None
Drug: None
Family History
Family History: Reviewed & Not Pertinent
Allergies / Home Medications
Allergies
Allergy/AdvReac Type Severity Reaction Status Date / Time
No Known Allergies Allergy Verified 05/12/24 16:02
Home Medications
�Medication �Instructions �Recorded �Confirmed �Last Taken �Type
alprazolam 0.5 mg tablet 0.5 mg PO HSPRN PRN anxiety/sleep 09/25/21 05/17/24 10/04/21 21:00 History
calcium carbonate (Calcium 600) 600 mg PO DAILY 09/25/21 05/17/24 05/17/24 History
cholecalciferol (vitamin D3) 50 50 mcg PO DAILY 09/25/21 05/17/24 05/17/24 History
mcg (2,000 unit) tablet (Vitamin
D3)
levothyroxine 75 mcg capsule 75 mcg PO DAILY 09/25/21 05/17/24 05/17/24 History
paroxetine HCl 10 mg tablet 10 mg PO DAILY 09/25/21 05/17/24 05/17/24 History
acetaminophen 300 mg-codeine 30 mg 1 tab PO Q6HPRN PRN severe pain 05/17/24 05/17/24 05/17/24 History
tablet
amoxicillin 875 mg tablet 875 mg PO BID 05/17/24 05/17/24 05/17/24 History
ascorbic acid (vitamin C) 500 mg 500 mg PO DAILY 05/17/24 05/17/24 Unknown History
chewable tablet (Vitamin C)
azelastine 137 mcg-fluticasone 50 1 spray intranasal BIDPRN PRN 05/17/24 05/17/24 Unknown History
mcg/spray nasal spray congestion
biotin 5 mg tablet 5 mg PO DAILY 05/17/24 05/17/24 Unknown History
ibuprofen 200 mg tablet 800 mg PO BID 05/17/24 05/17/24 05/17/24 History
rosuvastatin 5 mg tablet 5 mg PO HS 05/17/24 05/17/24 05/16/24 History
Review of Systems
-
History Source: Patient
All other systems: Negative unless noted
Vitals / Labs / Diagnostic Testing
Vital Signs
Temp Pulse Resp BP Pulse Ox
98.5 F 70 21 116/77 95
05/18/24 07:00 05/18/24 09:00 05/18/24 09:00 05/18/24 09:00 05/18/24 09:00
Laboratory Results
05/18/24 05/18/24
00:46 04:42
PT 13.7
INR 1.00
APTT 29.2
Diagnostic Testing:
Physical Exam
-
HEENT: Normocephalic
Cardiovascular: S1/S2
Respiratory: Non-Labored Respirations
GI: Soft and Non Distended
Neurology: Awake, Alert, AO x 3 and No Motor Deficits
Skin: Warm
General: Comfortable
Assessment
-
83-year-old woman with past medical history noted, admitted with hematemesis, hypotension, acute anemia, prior to admission few days before reports of black stools, she also uses NSAIDs on a daily basis.
Received IV fluid resuscitation and transfusion
Hemorrhagic shock-presented with hematemesis, black stools few days prior admission
Upper GI bleed-suspect peptic ulcer given NSAID use
Acute blood loss anemia hemoglobin 6.2 on admission recent hemoglobin on 05/14/2024 was 10Grams per deciliter.
Root canal performed 05/17/2024
Conditions present prior admission:
Reports history of GI bleed many years ago no endoscopy performed-report several units of packed red blood cells transfused at that time and in 1959
Hypercholesterolemia
History of hypothyroidism status post thyroidectomy
Anxiety/depression
Scoliosis-Daily NSAID use
History of hysterectomy due to polyps
Assessment and plan:
Continue critical care hemodynamic monitoring for now.
Blood pressure stable
Heart rate 65
Comfortable out of bed, denies any dizziness.
-
Patient for EGD possibly today-rule out peptic ulcer disease
Depending on results we can decide further therapies.
PPI drip
N.p.o.
Gentle IV fluids, IV boluses and transfusion will be given as necessary.
-
Follow H&H and transfuse as necessary
Most current hemoglobin 7.8
No evidence for active bleeding at this point
Benign abdominal exam
-
Hold antihypertensives
-
Eventually restart amoxicillin for recent root canal performed prior admission.
-
Chronic back pain: On NSAIDs in the outpatient setting. Advised to stop immediately.
-
DVT prophylaxis with SCDs
-
Critical care statement: A total of 31 minutes of critical care time was provided for this patient today. This includes management of unstable vital signs, evaluation of the patient at bedside, reviewing the patient's pertinent medical records
including ventilator settings, arterial blood gases, radiographs, microbiology, laboratory evaluations and discussion with primary team, critical care nursing, and respiratory therapy.
[2024-05-18] MEDS: OFIRMEV IV (10:30)
[2024-05-18] MEDS: NSS 1000 IV ×2 (10:30→21:35)
--- NOTE | 2024-05-18 10:30 | PTCARENOTE ---
Rec'd care of patient at 0700. Patient alert and oriented. Anxious at times. NSR on tele monitor. Pulse ox 92% on RA. Scattered crackles 3/4 up right lung. Hyper BS. No n/v, bm. Voiding on BSC. Protonix/IVF/KCl infusing through peripheral INTs.
Assisted oob to chair. NPO for EGD today.
[2024-05-18 11:19] LABS: Hematocrit 25.4 % (37.0-47.0); Hemoglobin 8.6 g/dL (12.0-16.0); Mean Corp Hgb Conc. 33.9 g/dL (33.0-37.0); Mean Corpuscular Hgb 30.1 pg (27.0-31.0); Mean Corpuscular Volume 88.8 fL (81.0-99.0); Mean Platelet Volume 9.5 fL (7.4-10.4); Platelet Count 246 10^3/uL (130-400); Red Blood Cell Count 2.86 10^6/uL (4.20-5.40); Red Cell Dist. Width 16.5 % (11.5-14.5); White Blood Cell Count 7.5 10^3/uL (4.8-10.8)
--- NOTE | 2024-05-18 11:36 | PTCARENOTE ---
Patient transferred to GI lab for EGD.
[2024-05-18 11:47] LABS: Blood Urea Nitrogen 27 mg/dl (7-17); Calcium 8.4 mg/dl (8.4-10.2); Carbon Dioxide 21 mmol/L (22-30); Chloride 107 mmol/L (98-107); Estimated Creatinine Clearance 45 ml/min; Glucose 98 mg/dl (70-99); Potassium 3.7 mmol/L (3.5-5.1); Sodium 135 mmol/L (135-145); eGFR > 60.00
[2024-05-18] MEDS: OFIRMEV 100 IV (12:37)
--- NOTE | 2024-05-18 13:08 | PTCARENOTE ---
Patient back from GI lab. Vitals stable. No active signs of bleeding. Daughter in law updated over the phone.
--- NOTE | 2024-05-18 15:20 | PTCARENOTE ---
Patient assisted back out into chair x1. Vitals stable. No major changes in assessment. C/o some nausea and a headache. Ofirmev administered at 1237. Resident notified.
--- NOTE | 2024-05-18 15:33 | W.PN.HOSP.TC ---
Addendum entered and electronically signed by Daiana Khan MD 05/18/24 18:24:
I saw and evaluated the patient independently. I reviewed the resident�s note and agree with findings and plan as documented by Dr. Salazar.
GENERAL: well developed, well nourished, female in no apparent distress
HEENT: NC/AT--pale conjunctiva
HEART: regular rate and rhythm, +S1, +S2
LUNGS : clear to auscultation bilaterally
ABDOM: soft, nontender, nondistended, + bowel sounds
EXT: no cyanosis, clubbing, or edema
NEUROLOGIC: grossly intact
Hemorrhagic Shock Likely due to UGI bleed (PUD, DUD) from Chronic NSAID use with acute blood loss anemia--received 3 units pRBC (HGB 6.2 to 8.6)--apprec GI--s/p EGD with large deep penetrating gastric ulcer--keep strict NPO--cont IVF, serial H&H,
transfuse if < 8--cont PPI drip--no NSAIDs--will need repeat EGD in ~12 weeks to ensure healing
S/p Root Canal- Continue Amoxicillin as able
HLD - Continue Statin
Hypothyroidism - Continue Levo
Headache - Ofirmev, no relief; 1 dose Compazine given- Strict Avoid NSAIDs
DVT proph--SCDs
code status -- FULL CODE
Original Note:
Today's Communication/Plan
-
.
Assessment / Plan
Assessment / Plan
1. Hemorrhagic Shock 2/2 Likely UGI 2/2 Chronic NSAID use
- Hemoglobin on admission was 6.2; transfused with 3U; follow up Hb was 8.6
- Hemoglobin this morning was 7.8, however it was noted that blood was taken from same arm she was receving IV. Repeat Hb was unchanged from yesterday.
- Continue IV Fluids
- Serial H+H; transfuse for goal Hb > 8
- Hold Ibuprofen
- Strict NPO prior to EGD. Sips of Clears after 2200 tonight. CLD in the morning.
- Avoid NSAIDs
- Protonix
- Appreciate GI
- EGD (05/18): Large, non-bleeding, deeply penetrating gastric ulcer with a flat pigmented spot found in the gastric body. This was approximately 3 cm in size. For prevention of rebleeding and additional hemostasis, hemostatic spray was applied
(Endoclot).
- IV PPI gtt x 72 hours
- Repeat EGD in 8-12 weeks
2. S/p Root Canal
- Continue Amoxicillin
3. HLD
- Continue Statin
4. Hypothyroidism
- Continue Levo
5. Headache
- Ofirmev, no relief; 1 dose Compizine given
- Strict Avoid NSAIDs
SCD/Full Code
Anticipated Discharge: 24 - 48 hours
Subjective/Interval History
-
Date of Service: May 18, 2024
Patient seen and examined while sitting comfortably in chair. Patient denies any acute abdominal complaints since admission, including abdominal pain, nausea, vomiting. Denies dizziness, chest pain, palpitation or dizziness. Does note that she has
an occipital headache, but notes that she feels that is most likely due to her being hungry.
Reviewed her history of present illness; has been seen multiple times in the ED in the past few weeks due to chest pains, but cardiac workup has been negative. A few days ago, she felt impacted and manually disimpacted her self, and noticed dark
melanotic stools. A day later, ate cottage cheese and immediately vomited, noticed bright red blood in vomitus. Went to PCP and had one episode of bright red vomitus there, and was sent to ED. Patient notes a history of chronic back pain for which
she has been taking 800 mg Ibuprofen BID for approximately 2 years.
Objective Data
-
Labs:
Laboratory Results
05/18/24 05/18/24 05/18/24
04:42 10:44 10:44
WBC 7.6 7.5
Hgb 7.8 L Cancelled 8.6 L
Hct 21.9 L Cancelled
Plt Count 215 D
APTT 29.2
Sodium 137
Potassium 3.1 L
Chloride 106
Carbon Dioxide 23
BUN 32 H
Creatinine 0.7
Glucose 89
Calcium 8.1 L
Total Bilirubin 0.6
AST 27
ALT 18
Alkaline Phosphatase 33 L
05/18/24
10:44
WBC
Hgb
Hct 25.4 L
Plt Count 246
APTT
Sodium 135
Potassium 3.7
Chloride 107
Carbon Dioxide 21 L
BUN 27 H
Creatinine 0.6
Glucose 98
Calcium 8.4
Total Bilirubin
AST
ALT
Alkaline Phosphatase
Vital Signs:
Vital Signs
Temp Pulse Resp BP Pulse Ox
98.5 F 73 17 117/61 96
05/18/24 07:00 05/18/24 15:00 05/18/24 15:00 05/18/24 15:00 05/18/24 14:30
I&O
05/17/24 05/18/24 05/19/24
06:59 06:59 06:59
Intake Total 1640 / 1817.5 1360.0 / 1360.0
Balance 1640 / 1817.5 1360.0 / 1360.0
Review of Systems
-
History Source: Patient
Constitutional: Reports No Symptoms
Respiratory: Reports No Symptoms
Cardiac: Reports No Symptoms
Abdomen/GI: Reports No Symptoms
Neuro: Reports Headache
Physical Exam
-
General: Comfortable and Conversant
HEENT: Normocephalic and Atraumatic
Respiratory: Clear to Auscultation
Cardiac: Regular Rhythm and S1/S2
GI: Soft, Nontender, Nondistended and Normal Bowel Sounds
Musculoskeletal: No Clubbing, No Cyanosis and No Edema
Skin: Warm and Dry
Neuro: Awake, Alert and Oriented
Psych: Calm
Data Reviewed
-
Labs: Labs Reviewed by me and Discussed with Patient
--- NOTE | 2024-05-18 15:47 | W.PN.UPDATE ---
Update Note
Progress Note Update
EGD noted, large penetrating gastric ulcer.
Maintain ICU level of care for tonight if stable tomorrow morning then transferred to telemetry.
Monitor for rebleeding
Continue PPI drip for 72 hours
Repeat H&H in the morning
--- NOTE | 2024-05-18 17:02 | CM ---
Patient seen at bedside with physicians. Patient lives in a one story home, a modular home. Patient stated that her son lives with her, and her PCP is Dr. George and she uses [facility]. Patient was independent of ADL's and IADL's. Patient
plan is for home with no needs or VN. Patient for testing today and pending assessment/medical treatment plan, patient may benefit from PT/OT. CM will continue to follow for discharge planning needs.
Plan; home with VN vs SNF
--- NOTE | 2024-05-18 20:45 | PTCARENOTE ---
Resumed care of pt this evening. Received pt A&Ox3. Pt able to make needs known and move all 4 extremities. Pt is NSR on tele monitor, has no edema and + pedal pulses. Pt on RA satting at 96% pulse ox. On auscultation pt's right lung 3/4 up has
scattered crackles. Pt lungs TO are also diminished. Pt NPO per order. Pt's abdomen is round w/ active BS. Pt ambulating w/ x1 assist to bedside commode to void. Skin is C/D/I.
[2024-05-18] MEDS: XANAX 0.5 MG PO (21:39)
[2024-05-19] VITALS (15 sets, daily range): BP systolic 97–147; BP diastolic 46–93; BMI 23.3; BMI 24.5
--- NOTE | 2024-05-19 00:40 | PTCARENOTE ---
Upon reassessment pt is resting comfortably.
[2024-05-19] MEDS: AMOXIL 1000 MG PO ×3 (02:00→19:39)
--- NOTE | 2024-05-19 03:00 | PTCARENOTE ---
Pt tried to ambulate w/o assistance to use bedside commode. Pt reminded to not get out of bed w/o assistance. Pt seemed slightly forgetful during episode. Bed alarm turned on.
[2024-05-19] MEDS: TYLENOL #3 1 TABLET PO ×2 (03:57→10:37)
[2024-05-19 04:25] LABS: Hematocrit 27.2 % (37.0-47.0); Hemoglobin 9.2 g/dL (12.0-16.0); Mean Corp Hgb Conc. 33.8 g/dL (33.0-37.0); Mean Corpuscular Hgb 30.4 pg (27.0-31.0); Mean Corpuscular Volume 89.8 fL (81.0-99.0); Mean Platelet Volume 9.4 fL (7.4-10.4); Platelet Count 261 10^3/uL (130-400); Red Blood Cell Count 3.03 10^6/uL (4.20-5.40); Red Cell Dist. Width 16.4 % (11.5-14.5); White Blood Cell Count 8.9 10^3/uL (4.8-10.8)
[2024-05-19 04:49] LABS: ALT (SGPT) 18 U/L (0-35); AST (SGOT) 33 U/L (14-36); Albumin 3.1 g/dl (3.5-5.0); Alkaline Phosphatase 44 U/L (38-126); Blood Urea Nitrogen 14 mg/dl (7-17); Calcium 8.2 mg/dl (8.4-10.2); Carbon Dioxide 19 mmol/L (22-30); Chloride 107 mmol/L (98-107); Estimated Creatinine Clearance 45 ml/min; Glucose 76 mg/dl (70-99); Potassium 3.5 mmol/L (3.5-5.1); Sodium 138 mmol/L (135-145); Total Bilirubin 0.6 mg/dl (0.2-1.3); Total Protein 5.6 g/dl (6.3-8.2); eGFR > 60.00
[2024-05-19] MEDS: NSS 1000 IV ×2 (06:35→14:42)
[2024-05-19] MEDS: KCL 20 MEQ PO (06:36)
[2024-05-19] MEDS: SYNTHROID 75 MCG PO (06:36)
--- NOTE | 2024-05-19 08:00 | PTCARENOTE ---
Pt rec'd from previous RN at 07:15. AOx3 slightly forgetful at times. Easily reoriented. Very pleasant. 93% on room air, SR on tele, hyper bowel sounds. CLD ordered. Pt assisted oob to use commode for 200 mls urine output, steady on feet, standby
assist from RN for lines and wires. NSS at 100/hr and Protonix gtt infusing to LAC. Plan of care discussed with patient, questions answered. Safe environment maintained.
[2024-05-19] MEDS: OSCAL CAL 500 1500 MG PO (08:38)
[2024-05-19] MEDS: PAXIL 10 MG PO (08:38)
[2024-05-19] MEDS: VITAMIN C 500 MG PO (08:38)
[2024-05-19] MEDS: VITAMIN D3 (cholecalciferol) 50 MCG PO (08:38)
--- NOTE | 2024-05-19 09:23 | W.PN.GI.CBS2 ---
Today's Communication / Plan
-
-- Full liquid diet for lunch, advance to low residue tomorrow if stable
-- Continue PPI drip until discharge which likely can be Friday morning if she will maintain stability
-- Okay for telemetry, out of ICU
Assessment / Plan
-
This is an 83-year-old female presenting with hematemesis and melena in the setting of NSAIDs on 05/17/24. BP systolic as low as 89, no tachycardia (no BB listed on home meds) found to have a 3 cm large ulcer in the gastric body treated with
EndoClot on 05/18/2024
05/18/[address] Castle for hemorrhagic anemia hematemesis and melena. Large deeply penetrating gastric ulcer with a flat pigmented spot treated with EndoClot likely secondary to NSAID use. too large to approximate with clips
05/19/2024: Patient is status post 2 units of blood on 05/17/2024 and is hemodynamically stable with improvement in hemoglobin currently 9.2 up from 6.2 with a normalized BUN
All signs that she has stopped bleeding
Agree with clear liquid diet and advance to full liquids for lunch.
PPI drip started on 05/17/2024 and continues.
Okay for telemetry
Likely discharge Friday morning with twice daily PPI x 1 month then once daily indefinitely
Avoid all NSAIDs
Will need repeat EGD with Dr. Castle in 2 months to ensure healing of the ulcer and biopsy if it remains to ensure no malignancy
Subjective
Subjective
Date of Service: May 19, 2024
Patient denies any abdominal pain. No further bowel movements, clear liquid diet started this morning.
Objective
Data Reviewed
Laboratory Data:
Laboratory Results
05/19/24 04:06
05/19/24 04:06
Laboratory Results
PT 13.7 Sec (11.4-14.6) 05/18/24 00:46
INR 1.00 05/18/24 00:46
APTT 29.2 Sec (23.4-35.0) 05/18/24 04:42
Total Bilirubin 0.6 mg/dl (0.2-1.3) 05/19/24 04:06
AST 33 U/L (14-36) 05/19/24 04:06
ALT 18 U/L (0-35) 05/19/24 04:06
Alkaline Phosphatase 44 U/L (38-126) 05/19/24 04:06
Vital Signs and I&O:
Vital Signs
Temp Pulse Resp BP Pulse Ox
98.1 F 75 15 124/59 95
05/19/24 07:00 05/19/24 08:30 05/19/24 08:30 05/19/24 08:00 05/18/24 21:00
I&O
05/18/24 05/19/24 05/20/24
06:59 06:59 06:59
Intake Total 1640 / 1817.5 3010.0 / 3120.0 220 / 220
Output Total 200 / 200
Balance 1640 / 1817.5 3010.0 / 3120.0
Physical Exam
Physical Exam
HEENT: Anicteric
Cardiology: Murmur
Pulmonary: Clear
GI: Soft and Non Tender
Extremities: No Edema
Neuro: Non Focal
--- NOTE | 2024-05-19 09:42 | W.PN.HOSP.TC ---
Addendum entered and electronically signed by Daiana Khan MD 05/19/24 15:51:
I saw and evaluated the patient independently. I reviewed the resident�s note and agree with findings and plan as documented by Dr. Salazar.
GENERAL: well developed, well nourished, female in no apparent distress
HEENT: NC/AT--pale conjunctiva
HEART: regular rate and rhythm, +S1, +S2
LUNGS : clear to auscultation bilaterally
ABDOM: soft, nontender, nondistended, + bowel sounds
EXT: no cyanosis, clubbing, or edema
NEUROLOGIC: grossly intact
Hemorrhagic Shock due to UGI bleed from large gastric ulcer from Chronic NSAID use with acute blood loss anemia--received 3 units pRBC (HGB 6.2 to 8.6)--apprec GI--s/p EGD with large deep penetrating gastric ulcer--started clears today--OK for
transfer out of ICU--cont IVF, serial H&H, transfuse if < 8--cont PPI drip--no NSAIDs--will need repeat EGD in ~12 weeks to ensure healing
S/p Root Canal- Continue Amoxicillin as able
HLD - Continue Statin
Hypothyroidism - Continue Levo
Headache - Ofirmev, no relief; 1 dose Compazine given- Strict Avoid NSAIDs
DVT proph--SCDs
code status -- FULL CODE
Original Note:
Today's Communication/Plan
-
.
Assessment / Plan
Assessment / Plan
1. Hemorrhagic Shock 2/2 Likely UGI 2/2 Chronic NSAID use
- Hemoglobin on admission was 6.2; transfused with 3U; follow up Hb was 8.6.
- Hemoglobin this morning was 9.2 and continues to improve.
- Serial H+H; transfuse for goal Hb > 8
- Hold Ibuprofen
- Patient tolerating sips of clears. CLD today; advance to Full Liquid if geo; diet managed by GI.
- Avoid NSAIDs
- Protonix
- Appreciate GI
- EGD (05/18): Large, non-bleeding, deeply penetrating gastric ulcer with a flat pigmented spot found in the gastric body. This was approximately 3 cm in size. For prevention of rebleeding and additional hemostasis, hemostatic spray was applied
(Endoclot).
- IV PPI gtt x 72 hours
- Repeat EGD in 8-12 weeks
- Transfer to [facility]; continue to monitor diet/tolerance; continue to monitor stools for bleeding; continue to monitor H/H.
2. S/p Root Canal
- Continue Amoxicillin
3. HLD
- Continue Statin
4. Hypothyroidism
- Continue Levo
5. Headache
- Ofirmev, no relief; 1 dose Compizine given
- Strict Avoid NSAIDs
- Tramadol PRN has worked best so far
SCD/Full Code
Anticipated Discharge: 24 - 48 hours
Subjective/Interval History
-
Date of Service: May 19, 2024
Patient seen and examined while sitting up in bed, having a sip of clears. Patient has no acute complaints this morning, other than still mild headache that she attributes to hunger. She otherwise denies chest pains, shortness of breath, dizziness,
abdominal pain, nausea, vomiting, diarrhea. Patient notes that she has not yet had a bowel movement after her procedure but that she is passing gas and urinating well. Patient remained hemodynamically stable overnight.
Objective Data
-
Labs:
Laboratory Results
05/19/24
04:06
WBC 8.9
Hgb 9.2 L
Hct 27.2 L
Plt Count 261
Sodium 138
Potassium 3.5
Chloride 107
Carbon Dioxide 19 L
BUN 14
Creatinine 0.6
Glucose 76
Calcium 8.2 L
Total Bilirubin 0.6
AST 33
ALT 18
Alkaline Phosphatase 44
Vital Signs:
Vital Signs
Temp Pulse Resp BP Pulse Ox
98.1 F 75 15 124/59 95
05/19/24 07:00 05/19/24 08:30 05/19/24 08:30 05/19/24 08:00 05/18/24 21:00
I&O
05/18/24 05/19/24 05/20/24
06:59 06:59 06:59
Intake Total 1640 / 1817.5 3010.0 / 3120.0 220 / 220
Output Total 200 / 200
Balance 1640 / 1817.5 3010.0 / 3120.0
Review of Systems
-
History Source: Patient
Constitutional: Reports No Symptoms
Respiratory: Reports No Symptoms
Cardiac: Reports No Symptoms
Abdomen/GI: Reports No Symptoms
Musculoskeletal: Reports No Symptoms
Neuro: Reports Headache (mild)
Physical Exam
-
General: No Apparent Distress, Comfortable and Conversant
HEENT: Normocephalic and Atraumatic
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
Cardiac: Regular Rhythm and S1/S2
GI: Soft, Nontender, Nondistended and Normal Bowel Sounds
Musculoskeletal: No Edema
Skin: Warm
Neuro: Awake, Alert and No Motor Deficits
Psych: Calm
Data Reviewed
-
Labs: Labs Reviewed by me and Discussed with Patient
--- NOTE | 2024-05-19 12:11 | W.PN.INTV ---
Today's Communication / Plan
Recommendations
Continue PPI
Follow H&H
Transferred to telemetry
Advance diet
Signed off
Assessment
-
83-year-old woman with past medical history noted, admitted with hematemesis, hypotension, acute anemia, prior to admission few days before reports of black stools, she also uses NSAIDs on a daily basis.
Received IV fluid resuscitation and transfusion
Hemorrhagic shock-presented with hematemesis, black stools few days prior admission
Upper GI bleed-suspect peptic ulcer given NSAID use
Acute blood loss anemia hemoglobin 6.2 on admission recent hemoglobin on 05/14/2024 was 10Grams per deciliter.
Root canal performed 05/17/2024
Conditions present prior admission:
Reports history of GI bleed many years ago no endoscopy performed-report several units of packed red blood cells transfused at that time and in 1960
Hypercholesterolemia
History of hypothyroidism status post thyroidectomy
Anxiety/depression
Scoliosis-Daily NSAID use
History of hysterectomy due to polyps
Assessment and plan:
-
EGD noted with peptic ulcer
Continue PPI until discharge
Hemoglobin is stable
Hemodynamically stable
Benign abdominal exam
Diet advance per GI
-
Advised not to take any NSAIDs.
-
Daily H&H
Monitor for rebleeding
Continue to hold antihypertensive for today
-
DVT prophylaxis with SCDs
-
Antibiotics for her recent root canal
-
Transfer to telemetry
Critical care team will sign off.
Please call pulmonary if any respiratory issues arise
Subjective Dataa
Subjective Data
Date of Service:
Date of Service: May 19, 2024
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
Subjective:
Denies any abdominal pain nausea or vomiting
Tolerated clear diet
Hemodynamically stable overnight
Review of Systems
GI: Abdominal Pain (n), Nausea (n) and Vomiting (n)
Objective Data
Data Reviewed
Vital Signs / I&O / Oxygen:
Vital Signs
Temp Pulse Resp BP Pulse Ox
98.0 F 75 18 107/49 96
05/19/24 11:00 05/19/24 10:00 05/19/24 10:00 05/19/24 10:00 05/19/24 08:00
Intake and Output
05/18/24 05/19/24 05/20/24
06:59 06:59 06:59
Intake Total 1640 / 1817.5 3010.0 / 3120.0 1150 / 1150
Output Total 200 / 200
Balance 1640 / 1817.5 3010.0 / 3120.0 950 / 950
SaO2 96
Nasal Cannula flow liters per 98
minute
Physical Exam
General: Comfortable
HEENT: Normocephalic
Cardiovascular: S1-S2
Respiratory: Non-Labored Respirations
GI: Non Distended
Neurology: Awake, Alert and No Motor Deficits
Skin: Warm
Labs/Micro/Reports
Lab Data
05/19/24 04:06
05/19/24 04:06
--- NOTE | 2024-05-19 12:19 | W.PN.UPDATE ---
Update Note
Progress Note Update
Complaining of some headache even since prior admission.
Neurologically stable
Tried Tylenol with codeine without success
Will add tramadol as needed
Okay for telemetry.
--- NOTE | 2024-05-19 12:51 | SUR.OPER ---
Pt c/o mild nausea around 10:30 am, and headache rated 4/10 in back of head. Per patient and nursing report this has been ongoing. Pt medicated with PRN Tylenol 3 as ordered. Pt assisted to sit up in chair, washed and teeth brushed. Diet was
advanced to full liquids per GI. Plan discussed with machinist job setter, ok to downgrade to tele. Full liquid diet tray arrived, pt stated she is hungry and will eat some of her food.
[2024-05-19] MEDS: ULTRAM 50 MG PO (13:21)
[2024-05-19] MEDS: PROTONIX 100 IV (14:43)
--- NOTE | 2024-05-19 15:34 | TRANSFER ---
Report given to 3W ROSA Hutchins, then assignment was adjusted so Liset gave report to ROSA Garcia. PT transported to Room 318-1 in wheelchair with all belongings by PCT. Son accompanying.
--- NOTE | 2024-05-19 16:06 | PTCARENOTE ---
patient admitted to [facility]. Patient is aaox3, denies pain or discomfort. Will continue to monitor.
[2024-05-19] MEDS: DILAUDID 0.25 MG IV (19:40)
--- NOTE | 2024-05-19 21:30 | PTCARENOTE ---
Patient with fine crackles to B/L base of lungs. Patient denies any SOB, pulse ox WNL on RA. Patient has been receiving Normal Saline @100ml/hr. Patient tolerating full liquid diet well. NITA White notified and order placed to stop IVF. Chest
x-ray in the am. Care ongoing, will monitor.
[2024-05-19] MEDS: XANAX 0.5 MG PO (22:05)
[2024-05-19] MEDS: CRESTOR 5 MG PO (22:06)
--- NOTE | 2024-05-20 00:31 | W.PN.UPDATE ---
Update Note
Progress Note Update
-Reported by the nursing staff that the patient had crackle lung sounds. Patient denies SOB or chest pain. Asymptomatic, SPO2 93-96 % on RA. Vital signs within normal level.
-On assessment, crackle lung sound and cough noted.
Patient currently on IVF 100cc/hr will d/c as the patient started on liquid diet and tolerated.
- Will order chest x-ray.
[2024-05-20] MEDS: PROTONIX IV (02:48)
[2024-05-20] MEDS: PROTONIX 100 IV ×3 (02:48→21:57)
[2024-05-20 03:52] VITALS: BP 128/64
[2024-05-20] MEDS: SYNTHROID 75 MCG PO (05:40)
[2024-05-20 07:25] VITALS: BP 107/68
[2024-05-20] MEDS: AMOXIL 1000 MG PO ×2 (07:49→20:24)
[2024-05-20] MEDS: VITAMIN D3 (cholecalciferol) 50 MCG PO (07:50)
[2024-05-20] MEDS: OSCAL CAL 500 1500 MG PO (07:50)
[2024-05-20] MEDS: VITAMIN C 500 MG PO (07:50)
[2024-05-20] MEDS: PAXIL 10 MG PO (07:50)
[2024-05-20 08:00] LABS: Hematocrit 25.8 % (37.0-47.0); Hemoglobin 9.1 g/dL (12.0-16.0); Mean Corp Hgb Conc. 35.3 g/dL (33.0-37.0); Mean Corpuscular Hgb 30.8 pg (27.0-31.0); Mean Corpuscular Volume 87.5 fL (81.0-99.0); Mean Platelet Volume 9.3 fL (7.4-10.4); Platelet Count 313 10^3/uL (130-400); Red Blood Cell Count 2.95 10^6/uL (4.20-5.40); Red Cell Dist. Width 15.7 % (11.5-14.5); White Blood Cell Count 10.1 10^3/uL (4.8-10.8)
[2024-05-20 08:31] LABS: Blood Urea Nitrogen 9 mg/dl (7-17); Calcium 8.2 mg/dl (8.4-10.2); Carbon Dioxide 22 mmol/L (22-30); Chloride 103 mmol/L (98-107); Estimated Creatinine Clearance 51 ml/min; Glucose 110 mg/dl (70-99); Potassium 3.4 mmol/L (3.5-5.1); Sodium 134 mmol/L (135-145); eGFR > 60.00
[2024-05-20] MEDS: TYLENOL #3 1 TABLET PO ×2 (09:24→16:09)
--- NOTE | 2024-05-20 10:43 | W.PN.HOSP.TC ---
Addendum entered and electronically signed by Daiana Khan MD 05/20/24 18:20:
I saw and evaluated the patient independently. I reviewed the resident�s note and agree with findings and plan as documented by Dr. Salazar.
GENERAL: well developed, well nourished, female in no apparent distress
HEENT: NC/AT--pale conjunctiva
HEART: regular rate and rhythm, +S1, +S2
LUNGS : coarse crackles consistent with pulm fibrosis
ABDOM: soft, nontender, nondistended, + bowel sounds
EXT: no cyanosis, clubbing, or edema
NEUROLOGIC: grossly intact
Hemorrhagic Shock due to UGI bleed from large gastric ulcer from Chronic NSAID use with acute blood loss anemia--received 3 units pRBC (HGB 6.2 to 8.6)--apprec GI--s/p EGD with large deep penetrating gastric ulcer--tolerating diet--stop IVF, serial
H&H, transfuse if < 8--cont PPI drip until tomorrow 05/21/24--no NSAIDs--will need repeat EGD in ~12 weeks to ensure healing
S/p Root Canal- Continue Amoxicillin as able
HLD - Continue Statin
Hypothyroidism - Continue Levo
Headache - Ofirmev, no relief; 1 dose Compazine given- Strict Avoid NSAIDs
DVT proph--SCDs
code status -- FULL CODE
anticipate d/c tomorrow
Original Note:
Today's Communication/Plan
-
Transition to Low Residue Diet, IV Protonix 40 mg BID. Discharge tomorrow on PO Pantaprazole. Follow up EGD in 6-8 weeks.
Assessment / Plan
Assessment / Plan
1. Hemorrhagic Shock 2/2 Likely UGI 2/2 Chronic NSAID use
- Hemoglobin on admission was 6.2; transfused with 3U; follow up Hb was 8.6.
- Hemoglobin this morning was 9.2 and continues to improve.
- Serial H+H; transfuse for goal Hb > 8
- Hold Ibuprofen
- Patient tolerating Full Liquid; Advance to Low Residue today, per GI.
- One BM this morning, black tarry; likely residual blood after procedure. Continue to monitor stool characteristics.
- Avoid NSAIDs
- Protonix
- Appreciate GI
- EGD (05/18): Large, non-bleeding, deeply penetrating gastric ulcer with a flat pigmented spot found in the gastric body. This was approximately 3 cm in size. For prevention of rebleeding and additional hemostasis, hemostatic spray was applied
(Endoclot).
- IV PPI gtt finishes today; then transition to IV PPI 40 mg BID
- D/c tomorrow on Pantoprazole 40mg BID for 8 weeks, then once daily
- Repeat EGD in 8-12 weeks
- Transfer to [facility]; continue to monitor diet/tolerance; continue to monitor stools for bleeding; continue to monitor H/H.
2. S/p Root Canal
- Continue Amoxicillin
3. HLD
- Continue Statin
4. Hypothyroidism
- Continue Levo
5. Headache
- Ofirmev, no relief; 1 dose Compizine given
- Strict Avoid NSAIDs
- Tramadol PRN has worked best so far
6. History of Pulmonary Fibrosis
- Crackles on examination of the right lung.
- Chest XR not impressive. Patient denies symptoms. Continue to monitor.
SCD/Full Code
Anticipated Discharge: Within 24 hours
Subjective/Interval History
-
Date of Service: May 20, 2024
Patient seen and examined after returning to her bed from the bathroom. Patient notes that the bowel movement she has this morning was dark and tarry. Other tatum she denies any abdominal complaints including constipation, abdominal pain, nausea,
vomiting. Notes that she still has residual headache that is improved with pain medications. Overnight physician ordered a chest x-ray this morning upon hearing crackles, however, patient says that these are chronic and secondary to pulmonary
fibrosis for which she is followed by a research interviewer outpatient.
Objective Data
-
Labs:
Laboratory Results
05/20/24
07:42
WBC 10.1
Hgb 9.1 L
Hct 25.8 L
Plt Count 313
Sodium 134 L
Potassium 3.4 L
Chloride 103
Carbon Dioxide 22
BUN 9
Creatinine 0.6
Glucose 110 H
Calcium 8.2 L
Vital Signs:
Vital Signs
Temp Pulse Resp BP Pulse Ox
98.7 F 86 16 107/68 86
05/20/24 07:25 05/20/24 07:25 05/20/24 07:25 05/20/24 07:25 05/20/24 07:25
I&O
05/19/24 05/20/24 05/21/24
06:59 06:59 06:59
Intake Total 3010.0 / 3120.0 3210 / 3210
Output Total 200 / 200
Balance 3010.0 / 3120.0 3010 / 3010
Review of Systems
-
History Source: Patient
Constitutional: Reports No Symptoms
Respiratory: Reports No Symptoms
Cardiac: Reports No Symptoms
Abdomen/GI: Reports No Symptoms
Musculoskeletal: Reports No Symptoms
Neuro: Reports No Symptoms
Physical Exam
-
General: Well Developed, Well Nourished and No Apparent Distress
HEENT: Normocephalic, Atraumatic and Moist Mucous Membranes
Respiratory: Crackles (in the right lung field, otherwise CTA)
Cardiac: Regular Rhythm and S1/S2
GI: Soft and Nontender
Musculoskeletal: No Clubbing and No Edema
Skin: Warm and Dry
Neuro: Awake, Alert and No Motor Deficits
Psych: Calm and Other (pleasant)
Data Reviewed
-
Diagnostic Radiology: Report Reviewed by me
Labs: Labs Reviewed by me and Discussed with Patient
--- NOTE | 2024-05-20 11:14 | W.PN.GI.CBS2 ---
Today's Communication / Plan
-
Advance diet as tolerated, no signs to suggest recurrent GI bleeding with stable H/h and normal BUN. Episode of melena this AM but to be expected and likely old blood. Continue IV PPI for additional 24 hrs and may be transitioned to IV PPI BiD while
inpatient after completion of gtt. Will coordinate close outpatient f/u with me in the office as patient will need an eventual repeat EGD in 8-12 weeks. See rest of care as outlined below. GI will sign-off, please call back with any questions or
concerns.
Assessment / Plan
-
#Hematemesis #UGIB 2/2
#Large, Cratered Gastric Ulcer (FC IIc)
#Acute Blood Loss Anemia
This is an 83-year-old female presenting with hematemesis and melena in the setting of NSAIDs on 05/17/24. BP systolic as low as 89, no tachycardia (no BB listed on home meds) found to have a 3 cm large ulcer in the gastric body treated with
EndoClot on 05/18/2024
05/18/[address] Castle for hemorrhagic anemia hematemesis and melena. Large deeply penetrating gastric ulcer with a flat pigmented spot treated with EndoClot likely secondary to NSAID use. too large to approximate with clips
Impression: Patient is now status post 2 units of blood on 05/17/2024 and is hemodynamically stable with improvement in hemoglobin currently 9.2 up from 6.2 with normalization of BUN 27 -> 14 -> 9. No signs to suggest recurrent GI bleeding since her
EGD and suspect previous melena secondary to old blood given her presentation and significant acute blood loss anemia. No other abdominal pain or nausea/vomiting and tolerating diet without difficulty.
Recommendations:
- Low-residue diet as tolerated
- Trend Hgb with CBC q daily, transfuse as needed
- Continue IV PPI gtt x 72 hrs, may transition to IV PPI 40 mg BiD while inpatient into later today / tomorrow
- Would discharge on Pantoprazole 40 mg BiD for 8 weeks and then once daily indefinitely
- No plans for repeat EGD while inpatient as without any signs to suggest recurrent GI bleeding at this time
- Ultimately, will need a repeat EGD within 8 to 12 weeks to ensure healing of large gastric ulcer and biopsies to r/o malignancy
- Will send message to office to coordinate close outpatient f/u prior to discharge
- Strict avoidance of all NSAIDs
- Rest of care per primary team
Discussed with internal medicine team this AM with Dr. Salazar. GI team will sign-off. Please call back with any questions or concerns.
Subjective
Subjective
Date of Service: May 20, 2024
- CXR obtained overnight with tiny left/right pleural effusions and possible pleural thickening
- Otherwise, Hgb remains stable with Hgb 8.6 -> 9.2 -> 9.1 without signs to suggest recurrent GI bleeding
Patient reports feeling well without any abdominal pain, nausea or vomiting. Tolerating diet without difficulty. Does note mild headache this AM. Did have one episode of melena early this AM, reports a total of two episodes since her hospitalization
after her EGD. No large volume melena or maroon colored stools.
Objective
Data Reviewed
Laboratory Data:
Laboratory Results
05/20/24 07:42
05/20/24 07:42
Laboratory Results
PT 13.7 Sec (11.4-14.6) 05/18/24 00:46
INR 1.00 05/18/24 00:46
APTT 29.2 Sec (23.4-35.0) 05/18/24 04:42
Total Bilirubin 0.6 mg/dl (0.2-1.3) 05/19/24 04:06
AST 33 U/L (14-36) 05/19/24 04:06
ALT 18 U/L (0-35) 05/19/24 04:06
Alkaline Phosphatase 44 U/L (38-126) 05/19/24 04:06
Vital Signs and I&O:
Vital Signs
Temp Pulse Resp BP Pulse Ox
98.7 F 86 16 107/68 86
05/20/24 07:25 05/20/24 07:25 05/20/24 07:25 05/20/24 07:25 05/20/24 07:25
I&O
05/19/24 05/20/24 05/21/24
06:59 06:59 06:59
Intake Total 3010.0 / 3120.0 3210 / 3210
Output Total 200 / 200
Balance 3010.0 / 3120.0 3010 / 3010
Physical Exam
Physical Exam
HEENT: Anicteric and Moist mucous membranes
Pulmonary: Other (Normal WOB on room air)
GI: Soft, Non Distended and Non Tender
Extremities: No Edema
Neuro: Non Focal
[2024-05-20 11:15] VITALS: BP 91/42
[2024-05-20 15:15] VITALS: BP 110/48
[2024-05-20 19:20] VITALS: BP 116/61
[2024-05-20] MEDS: CRESTOR 5 MG PO (20:25)
[2024-05-20] MEDS: ULTRAM 50 MG PO (20:25)
[2024-05-20] MEDS: XANAX 0.5 MG PO (21:56)
[2024-05-20 23:15] VITALS: BP 112/60
[2024-05-21] MEDS: TYLENOL #3 1 TABLET PO ×2 (00:36→11:21)
[2024-05-21 03:45] VITALS: BP 103/59
[2024-05-21] MEDS: SYNTHROID 75 MCG PO (05:22)
[2024-05-21 07:13] VITALS: BP 106/48
[2024-05-21 07:50] LABS: Hematocrit 24.3 % (37.0-47.0); Hemoglobin 8.4 g/dL (12.0-16.0); Mean Corp Hgb Conc. 34.6 g/dL (33.0-37.0); Mean Corpuscular Hgb 30.8 pg (27.0-31.0); Mean Platelet Volume 9.9 fL (7.4-10.4); Platelet Count 288 10^3/uL (130-400); Red Blood Cell Count 2.73 10^6/uL (4.20-5.40); Red Cell Dist. Width 15.9 % (11.5-14.5); White Blood Cell Count 9.3 10^3/uL (4.8-10.8)
[2024-05-21] MEDS: PROTONIX 100 IV (07:51)
[2024-05-21 07:52] LABS: ALT (SGPT) 16 U/L (0-35); AST (SGOT) 31 U/L (14-36); Albumin 2.7 g/dl (3.5-5.0); Alkaline Phosphatase 43 U/L (38-126); Blood Urea Nitrogen 12 mg/dl (7-17); Calcium 8.3 mg/dl (8.4-10.2); Carbon Dioxide 30 mmol/L (22-30); Chloride 103 mmol/L (98-107); Estimated Creatinine Clearance 51 ml/min; Glucose 102 mg/dl (70-99); Potassium 3.2 mmol/L (3.5-5.1); Sodium 135 mmol/L (135-145); Total Bilirubin 0.2 mg/dl (0.2-1.3); Total Protein 5.1 g/dl (6.3-8.2); eGFR > 60.00
[2024-05-21] MEDS: VITAMIN C 500 MG PO (08:30)
[2024-05-21] MEDS: AMOXIL 1000 MG PO (08:30)
[2024-05-21] MEDS: VITAMIN D3 (cholecalciferol) 50 MCG PO (08:31)
[2024-05-21] MEDS: PAXIL 10 MG PO (08:31)
[2024-05-21] MEDS: OSCAL CAL 500 1500 MG PO (08:35)
--- NOTE | 2024-05-21 13:33 | W.PN.HOSP.TC ---
Addendum entered and electronically signed by Daiana Khan MD 05/21/24 17:05:
I saw and evaluated the patient independently. I reviewed the resident�s note and agree with findings and plan as documented by Dr. Salazar.
GENERAL: well developed, well nourished, female in no apparent distress
HEENT: NC/AT--pale conjunctiva
HEART: regular rate and rhythm, +S1, +S2
LUNGS : coarse crackles consistent with pulm fibrosis
ABDOM: soft, nontender, nondistended, + bowel sounds
EXT: no cyanosis, clubbing, or edema
NEUROLOGIC: grossly intact
Hemorrhagic Shock due to UGI bleed from large gastric ulcer from Chronic NSAID use with acute blood loss anemia--received 3 units pRBC (HGB 6.2 to 8.6)--apprec GI--s/p EGD with large deep penetrating gastric ulcer--tolerating diet--stop IVF, serial
H&H, transfuse if < 8-- PPI drip now off, transition to PPI BID--no NSAIDs--will need repeat EGD in ~12 weeks to ensure healing
S/p Root Canal- Continue Amoxicillin as able
hypokalemia--replete
HLD - Continue Statin
Hypothyroidism - Continue Levo
Headache - Ofirmev, no relief; 1 dose Compazine given- Strict Avoid NSAIDs
DVT proph--SCDs
code status -- FULL CODE
d/c
Original Note:
Today's Communication/Plan
-
d/c
Assessment / Plan
Assessment / Plan
1. Hemorrhagic Shock 2/2 Likely UGI 2/2 Chronic NSAID use
- Hemoglobin on admission was 6.2; transfused with 3U; follow up Hb was 8.6.
- Hemoglobin this morning was 8.4, stable.
- Serial H+H; transfuse for goal Hb > 8
- Hold Ibuprofen
- Patient tolerating low residue diet.
- Avoid NSAIDs
- Appreciate GI
- EGD (05/18): Large, non-bleeding, deeply penetrating gastric ulcer with a flat pigmented spot found in the gastric body. This was approximately 3 cm in size. For prevention of rebleeding and additional hemostasis, hemostatic spray was applied
(Endoclot).
- IV PPI gtt finishes today; then transition to IV PPI 40 mg BID
- D/c on Pantoprazole 40mg BID for 8 weeks, then once daily
- Repeat EGD in 8-12 weeks
2. S/p Root Canal
- Continue Amoxicillin
3. HLD
- Continue Statin
4. Hypothyroidism
- Continue Levo
5. Headache
- Ofirmev, no relief; 1 dose Compizine given
- Strict Avoid NSAIDs
- Tramadol PRN has worked best so far
6. History of Pulmonary Fibrosis
- Crackles on examination of the right lung.
- Chest XR not impressive. Patient denies symptoms.
SCD/Full Code
Anticipated Discharge: Today
Subjective/Interval History
-
Date of Service: May 21, 2024
Patient seen and examined while sitting up in bed and eating. Patient has tolerated her low residue diet without issue. Patient does not have any acute complaints this morning. Specifically denies abdominal pain, nausea, vomiting, constipation,
diarrhea, chest pain, SOB.
Objective Data
-
Labs:
Laboratory Results
05/21/24
06:16
WBC 9.3
Hgb 8.4 L
Hct 24.3 L
Plt Count 288
Sodium 135
Potassium 3.2 L
Chloride 103
Carbon Dioxide 30
BUN 12
Creatinine 0.6
Glucose 102 H
Calcium 8.3 L
Total Bilirubin 0.2
AST 31
ALT 16
Alkaline Phosphatase 43
Vital Signs:
Vital Signs
Temp Pulse Resp BP Pulse Ox
98.6 F 69 17 106/48 100
05/21/24 07:13 05/21/24 07:13 05/21/24 07:13 05/21/24 07:13 05/21/24 08:51
I&O
05/20/24 05/21/24 05/22/24
06:59 06:59 06:59
Intake Total 3210 / 3210 1020 / 1020
Output Total 200 / 200
Balance 3010 / 3010 1020 / 1020
Review of Systems
-
History Source: Patient
Constitutional: Reports No Symptoms
Respiratory: Reports No Symptoms
Cardiac: Reports No Symptoms
Abdomen/GI: Reports No Symptoms
Musculoskeletal: Reports No Symptoms
Physical Exam
-
General: Well Nourished, No Apparent Distress and Comfortable
HEENT: Normocephalic, Atraumatic and Moist Mucous Membranes
Respiratory: Crackles (chronic)
Cardiac: Regular Rhythm
GI: Soft, Nontender, Nondistended and Normal Bowel Sounds
Musculoskeletal: No Clubbing, No Cyanosis and No Edema
Skin: Warm and Dry
Neuro: Awake, Alert and AO x 3
Psych: Calm
Data Reviewed
-
Labs: Labs Reviewed by me and Discussed with Patient
--- NOTE | 2024-05-21 13:36 | CM ---
Patient for discharge home today with family. CM will continue to follow for discharge planning needs.
Plan; home today
[2024-05-21 15:30] VITALS: BP 116/59
--- NOTE | 2024-05-21 17:46 | W.DCSUMMARY ---
Addendum entered and electronically signed by Daiana Khan MD 05/21/24 18:06:
Read, reviewed, and agree. See same day progress note for additional details. Time spent coordinating care, DC planning, review of DC plan of care with resident, transition of care, review of records in EMR, med rec, consults, notes, d/w
consultants, nursing, family, and CM = 34 minutes
Original Note:
Discharge Summary
Discharge Data
Date of Admission: 05/17/24
Date of Discharge: 05/21/24
-
Pending Results: No
Hospital Course
Ms. Maldonado is an 83-year-old female with a past medical history of hypercholesterolemia, hypothyroidism, scoliosis who presented to the emergency department at [facility] on 05/17/2024 after experiencing an episode of hematemesis at home
and at her primary care provider's office. Of note, the patient had been seen multiple times in the emergency department in the preceding few weeks due to chest pains. Patient had full cardiac workups on each occasion that had been negative. A
few days prior to arrival, the patient felt impacted and manually disimpacted herself. At this time she noticed dark melanotic stools. A day later she ate some cottage cheese, and immediately vomited. She noticed bright red blood in the vomitus.
The patient visited her primary care provider and proceeded to have 1 additional episode of bright red vomitus in the office. The primary care provider sent her to the emergency department directly from the office. At the time of admission, the
patient endorsed a history of chronic back pain for which she had been taking 800 mg of ibuprofen twice a day for approximately 2 years. Additional pertinent history includes an episode of upper GI bleeding more than 60 years ago which required
blood transfusions.
In the emergency department, the patient's blood pressure was initially 89/49, hemoglobin was 6.2, and the patient appeared ill. The patient was typed and crossed, however, testing revealed the presence of antibodies. The patient was given IV
fluid bolus while awaiting blood to become available. Multiple conversations were had including with the pathologist, agricultural commodities grader, and GI, and they were in agreement that the most likely antibodies involved were D&C, and the patient was
subsequently transfused under an emergency release protocol successfully. Family was also present during these conversations and in agreement. The patient was started on Protonix for given her upper GI bleed. Patient was subsequently to the ""hospital that evening.
Endoscopy was performed the next day which revealed a large, nonbleeding, deeply penetrating gastric ulcer found in the gastric body. It was approximately 3 cm in size. For prevention of rebleeding and additional hemostasis, EndoClot was applied.
At that time, biopsies were not performed given the risk. Following the procedure, the patient was kept n.p.o., however, diet was reinstated slowly. Hemoglobins were trended and remained stable, and the patient did not require any further
transfusions. The patient was started on an IV drip of Protonix 72 hours. I am, the patient is discharged home with instructions to strictly avoid NSAIDs, continue pantoprazole 40 mg twice a day for 8 weeks, and then once daily indefinitely. The
patient was instructed to follow-up with Dr. Castle in order to schedule a repeat EGD in 8 to 12 weeks following discharge. The patient was instructed to follow-up primary care provider for repeat CBC and further evaluation/recommendations.
Discharge Plan
-
Patient Disposition: Home (Routine Discharge)
Discharge Diagnosis/Procedures: Hemorrhagic Shock/Acute Blood Loss Anemia due to UGI Bleed
Large Gastric Ulcer
Condition: Fair
Diet: Low Residue
Others Tests: EGD in 6-[address] Castle (GI)
Referrals:
Juan Jose Castle, [Active] - in four to six weeks
Natasha George NP [Family Provider] - in less than 1 week
Additional Discharge Medication Instructions: Pantoprazole 40 mg tablet, twice a day for 8 weeks, then once a day indefinitely
Prescriptions:
New
pantoprazole 40 mg tablet,delayed release (DR/EC)
40 mg PO BID 56 Days Qty: 112 0RF
Continued
paroxetine HCl 10 MG tablet
10 mg PO DAILY
alprazolam 0.5 MG tablet
0.5 mg PO HSPRN PRN (Reason: anxiety/sleep)
calcium carbonate [Calcium 600] 600 mg calcium (1,500 mg) Tablet
600 mg PO DAILY
cholecalciferol (vitamin D3) [Vitamin D3] 50 mcg (2,000 unit) Tablet
50 mcg PO DAILY
levothyroxine 75 MCG capsule
75 mcg PO DAILY
acetaminophen-codeine 300-30 mg Tablet
1 tab PO Q6HPRN PRN (Reason: severe pain)
amoxicillin 875 mg Tablet
875 mg PO BID
ascorbic acid (vitamin C) [Vitamin C] 500 mg Tablet,Chewable
500 mg PO DAILY
rosuvastatin 5 mg Tablet
5 mg PO HS
biotin 5 mg Tablet
5 mg PO DAILY
azelastine-fluticasone 137-50 mcg/spray [place],Non-Aerosol
1 spray INTRANASAL BIDPRN PRN (Reason: congestion)
Discontinued
ibuprofen 200 mg Tablet
800 mg PO BID
Discharge Orders:
Discharge Patient (As Directed); Ordered 05/21/24
Ordered By: Gianluca Salazar
Discharge Date and Time
Discharge Date/Time: 05/21/24 15:53
Print Language: YAKUT
== END 2024-05-21 15:53 | disposition home or self-care (01) | DRG 377 ==
LOC: 3 WEST ACU 18:29
PROVIDERS: Nurse Practitioner Family; Nurse Practitioner Primary Care; Student in an Organized Health Care Education/Training Program; ADMITTING PHYSICIAN Hospitalist; ATTENDING PHYSICIAN Internal Medicine; CONSULT PHYSICIAN Internal Medicine Gastroenterology; EMERGENCY PHYSICIAN Emergency Medicine; FAMILY PHYSICIAN Internal Medicine; OTHER PHYSICIAN Internal Medicine Critical Care Medicine
PROC: 30233N1 Transfusion of Nonautologous Red Blood Cells into Peripheral Vein, Percutaneous Approach (ICD-10-PCS; 2024-05-17)
PROC: 0DJ08ZZ Inspection of Upper Intestinal Tract, Via Natural or Artificial Opening Endoscopic (ICD-10-PCS; 2024-05-18)
DX: K25.4 Chronic or unspecified gastric ulcer with hemorrhage (principal); R57.8 Other shock; D62 Acute posthemorrhagic anemia; F17.200 Nicotine dependence, unspecified, uncomplicated; E78.00 Pure hypercholesterolemia, unspecified; F32.A Depression, unspecified; F41.9 Anxiety disorder, unspecified; M41.9 Scoliosis, unspecified; E89.0 Postprocedural hypothyroidism; E78.5 Hyperlipidemia, unspecified; E87.6 Hypokalemia
CPT/HCPCS: 71045; 80048; 80053; 85014; 85018; 85025; 85027; 85610; 85730; 86850; 86870; 86900; 86901; 86902; 86905; 86920; 86922; 96361; 96374; 99291; P9016

== ENCOUNTER 2024-05-25 19:06 | Inpatient (IN) | payer MEDICARE, SELFPAY ==
[2024-05-25] VITALS (11 sets, daily range): BP systolic 93–115; BP diastolic 43–59; BMI 22.6
--- NOTE | 2024-05-25 15:13 | ED.GENMED ---
History of Present Illness
General
Chief Complaint: Rectal Bleeding
Source: patient, records, family and previous hospital records
Exam Limitations: none
Time Seen by Provider: 05/25/24 14:55
History of Present Illness
History of Present Illness:
83-year-old female recently admitted with rectal bleeding found to have a large gastric ulcer treated, previously been on NSAIDs, no NSAID since, no alcohol, presents with fatigue shortness of breath dyspnea exertion and black stool for 2 or 3 days
PCP saw the patient apparently had a borderline blood pressure low sats referred to the ER, here she is not hypotensive looks pale looks short of breath, no abdominal pain
Past History
Past History
ED Past Medical History: Hypercholesterolemia, Hypothyroidism and Other (Hypothyroidism, previous fractured ribs on the right posterior)
ED Past Surgical History: Appendectomy, , Gynecological (Hysterectomy) and Other (Thyroidectomy)
Social History
Tobacco: Smoker
Alcohol: None
Living: with family
Family History
Family History: Negative Diabetes, Early CAD or CAD
Review of Systems
Review of Systems
All Other Systems: Not applicable
Constitutional: Reports fatigue
Respiratory: Reports trouble breathing
Cardiac: Reports no symptoms
ABD/GI: Reports black stools
Neurological: Reports dizzy and weakness
Phy Exam
Physical Exam
Physical Exam:
Physical Exam
General: Pale dyspneic appearing
Neck: No jaundice
Heart: s1/s2 regular rate and rhythm, no murmur. equal radial pulses.
Lungs: no acute respiratory distress. Faint crackles
Abdomen: Soft nontender
Rectal: Very dark maroon/black heme positive
Neuro: alert and oriented. no focal neurological deficits
Skin: no rash
Psychiatric: well kept. interactive and cooperative
Extremities: Edema is present
Course
Orders/Labs/Results
Orders:
Orders
05/25/24 14:55
Cardiac Monitoring- Treatment ONCE
IV Insert/Care/Rem.- Treatment PRN
05/25/24 14:56
Electrocardiogram (*1) Stat
Reason for Study: Other
Other Reason for Exam: GI Bleed
EKG- Treatment ONCE
CR Chest Portable - 1 View Urgent
Comment:
Reason For Exam: soob
Reason Study Needs to be Portable: Unable to Transport
05/25/24 15:32
Complete Blood Count/With Diff Urgent
Comprehensive Metabolic Panel Urgent
05/25/24 15:52
Type+Screen Urgent
BBK Wristband Number:
Prothrombin Time Urgent
05/25/24 16:05
Blood Bank Products [* Blood Bank Products] Urgent
's Orders: fran
Blood Bank Products: *Packed RBC Leuko(PRBC's)
Quantity: 2
Transfuse Today: Yes
Reason: Anemia
0.9% Sodium Chloride 1000 ml [Nss] 1,000 ml IV BOLUS
Pantoprazole 80 mg/100 ml Nss [Protonix] 80 mg in 100 ml IV NOW
Pantoprazole [Protonix IV] 80 mg IV NOW STA
Abnormal Lab Results
05/25/24
15:32
RBC 1.97 L 10^6/uL
(4.20-5.40)
Hgb 6.0 L* D g/dL
(12.0-16.0)
Hct 18.2 L* %
(37.0-47.0)
RDW 16.3 H %
(11.5-14.5)
Immature Gran % 0.8 H %
(0-0.5)
Monocytes % 10.8 H %
(1.7-9.3)
Sodium 134 L mmol/L
(135-145)
Potassium 3.2 L mmol/L
(3.5-5.1)
BUN 32 H mg/dl
(7-17)
Glucose 131 H mg/dl
(70-99)
AST 43 H U/L
(14-36)
Total Protein 5.4 L g/dl
(6.3-8.2)
Albumin 3.0 L g/dl
(3.5-5.0)
05/25/24 15:32
05/25/24 15:32
Vital Signs
Initial and Last Documented VS:
Initial Vital Signs
Temp Pulse Resp BP Pulse Ox
97.8 F 78 16 103/59 82
05/25/24 14:49 05/25/24 14:49 05/25/24 14:49 05/25/24 14:49 05/25/24 14:49
Last Documented Vital Signs
Temp Pulse Resp BP Pulse Ox
97.8 F 69 20 103/59 82
05/25/24 14:49 05/25/24 15:45 05/25/24 15:45 05/25/24 14:49 05/25/24 14:49
MDM/Problems Addressed
Differential Diagnosis Includes:
Ulcer bleed duodenitis anemia shortness of breath
MDM/Problems Addressed:
Dark stool fatigue
Chronic conditions affecting care:
Ulcer pulmonary fibrosis
Acute Exacerbation and/or Progression of Chronic Illness:
Ulcer pulmonary fibrosis
*Radiology
Radiology exam reviewed: preliminary read by ED provider
*Pulse Oximetry
Patient hypoxic: no
*EKG
Interpreted by ED Provider?: Yes
Interpretation: normal
Comparison EKG: no comparison EKG present
Heart Rate: 78
Rate: normal
Ischemia: non-specific ST changes
*Cotton Ginner Helper Interpretation
Rate: normal
Interpretation: normal
Heart Rate: 78
Rhythm: sinus
*Critical Care Note
Total Time (30-74mins, 75-104mins- exclusive of procedures): 30
Data Reviewed
Review of Other/Old Records Reveals: Labs, Operative Reports, Progress Notes and Discharge Summary
Source: patient and records
Update Note
Update Note:
Update patient with symptomatic anemia by history, confirmed by rectal exam and labs, given supplemental oxygen IV Protonix, prior upper endoscopy report noted, blood transfusion ordered hospitalist and GI notified
CRITICAL CARE STATEMENT: A total of 30 minutes of critical care time was provided for this patient. This includes management of unstable vital signs, evaluation of the patient at bedside, reviewing the patient's pertinent medical records discussion
with EMS providers and patient's family in addition to discussion with consultants, review of old EKGs and review of pertinent medical records. This time with separate from time utilized to perform the aforementioned documented procedures
ED Attending Note
-
Portions of this chart may have been created with voice recognition software.� Occasional wrong word or��sound alike� substitutions may have occurred due to the inherent limitations of voice recognition software.
Discharge Plan
Departure
Patient Disposition: Admit
Date of Disposition: 05/25/24
Time of Disposition: 16:18
Admit to: IMU
Presentation/result/management discussed w/ accepting MD/DO: Hospitalist
Patient with high blood pressure during this ER visit?: No
Condition: Fair
Discharge Problem:
Melena, Acute upper GI bleed, ABLA (acute blood loss anemia), Gastric ulcer
Prescriptions:
No Action
paroxetine HCl 10 MG tablet
10 mg PO DAILY
alprazolam 0.5 MG tablet
0.5 mg PO HSPRN PRN (Reason: anxiety/sleep)
acetaminophen-codeine 300-30 mg Tablet
1 tab PO Q6HPRN PRN (Reason: severe pain)
rosuvastatin 5 mg Tablet
5 mg PO HS
pantoprazole 40 mg tablet,delayed release (DR/EC)
40 mg PO BID 56 Days Qty: 112 0RF
levothyroxine [Synthroid] 75 mcg Tablet
75 mcg PO DAILY
docusate sodium [Colace] 100 mg Capsule
100 mg PO DAILYPRN PRN (Reason: constipation)
Referrals:
Natasha George NP [Family Provider] -
Interventions
Interventions:
*Risk Screen - Suicide Last Done: 05/25/24 14:49
*Neglect/Abuse Screening Last Done: 05/25/24 14:49
XD-Lrpdgd-Hekdoieedq Assessment Last Done: 05/25/24 15:15
ED- Cardiac Assessment Last Done: 05/25/24 15:15
ED- Pulmonary Assessment Last Done: 05/25/24 15:15
Discharge Date and Time
Print Language: SPANISH
[2024-05-25 15:57] LABS: % Basophils 0.6 % (0-2); % Eosinophils 3.9 % (0-6); % Immature Granulocytes 0.8 % (0-0.5); % Lymphocytes 33.4 % (20.5-51.1); % Monocytes 10.8 % (1.7-9.3); % Neutrophils 50.5 % (42.2-75.2); Absolute Eosinophils 0.2 10^3/uL (0-0.7); Absolute Lymphocytes 1.7 10^3/uL (1.2-3.4); Absolute Monocytes 0.6 10^3/uL (0.1-0.6); Absolute Neutrophils 2.6 10^3/uL (1.4-6.5); Hematocrit 18.2 % (37.0-47.0); Mean Corpuscular Hgb 30.5 pg (27.0-31.0); Mean Corpuscular Volume 92.4 fL (81.0-99.0); Mean Platelet Volume 9.3 fL (7.4-10.4); Nucleated Red Blood Cells % 0.4 %; Platelet Count 318 10^3/uL (130-400); Red Blood Cell Count 1.97 10^6/uL (4.20-5.40); Red Cell Dist. Width 16.3 % (11.5-14.5); White Blood Cell Count 5.2 10^3/uL (4.8-10.8)
[2024-05-25 16:02] LABS: ALT (SGPT) 21 U/L (0-35); AST (SGOT) 43 U/L (14-36); Alkaline Phosphatase 41 U/L (38-126); Blood Urea Nitrogen 32 mg/dl (7-17); Calcium 8.4 mg/dl (8.4-10.2); Carbon Dioxide 26 mmol/L (22-30); Chloride 100 mmol/L (98-107); Glucose 131 mg/dl (70-99); Potassium 3.2 mmol/L (3.5-5.1); Sodium 134 mmol/L (135-145); Total Bilirubin 0.3 mg/dl (0.2-1.3); Total Protein 5.4 g/dl (6.3-8.2); eGFR > 60.00
[2024-05-25] MEDS: PROTONIX IV 80 MG IV (16:22)
[2024-05-25] MEDS: NSS 1000 IV (16:22)
[2024-05-25] MEDS: PROTONIX 100 IV (16:28)
[2024-05-25 16:34] LABS: INR 0.98; PT 13.3 Sec (11.4-14.6)
--- NOTE | 2024-05-25 16:58 | CON.GI ---
Addendum entered and electronically signed by Sabra Brush MD 05/25/24 18:46:
I saw and examined the patient.
The MISSILE FACILITIES REPAIRER or PA's note was reviewed and I agree with the note.
Comment: 83-year-old female who was recently admitted to the hospital upper GI bleeding from gastric ulcer which was deeply penetrating status post Hemospray , discharged 05/21/2024 with a hemoglobin of 8.4 now presenting with complaints of weakness
and fatigue and shortness of breath with minimal exertion. As per patient and family, she never recovered completely after her recent upper GI bleeding and continued to feel weak. She did have dark stool at discharge and never cleared up and she
continues to have dark blackish looking stool. She reports taking PPI twice a day without fail. No NSAIDs and is only taking Tylenol for back pain related to scoliosis. In the emergency room, she was noted to have a hemoglobin of 6.0 and black
stool but hemodynamically stable. BUN elevated at 32.
-Recurrent upper GI bleeding, likely from gastric ulcer without any hemodynamic instability
She is going to get PRBC transfusion
continue PPI drip
Monitor H&H and transfuse if needed.
Okay for small sips of clears without reds. N.p.o. past midnight.
Monitor electrolytes and replete as needed
For repeat upper endoscopy tomorrow.
Original Note:
Consultation
-
Date/Time Consultation Requested: 05/25/24 1600
Date/Time Consultation Performed: 05/25/24 1700
Requesting Provider: Getachew peters DO
Performing Provider: NITA Marcial, Sabra Brush MD
Reason for Consultation: rectal bleeding
Medical History
Chief Complaint / HPI
Chief Complaint: Rectal bleeding
History of Present Illness:
Pt is an 83yo with hx scoliosis with recent NSAID use, Prior GI bleed in 1959's with 6 units transfused during admission, headache, hypothyroidism, hypercholesterolemia, prior appe, , hysterectomy, thyroidectomy with recent admission
05/17 -05/21/24 with hematemesis. Pt was noted with anemia with hbg down to 6.2 with hypotension and tachycardia on admission. There was concern for antibodies and pt was transfused under emergency protocol. Pt was given PPI and completed EGD with
large non bleeding deep penetrating 3cm gastric ulcer with flat pigmented spot in gastric body. Hemospray was applied. Pt was given 2 units PRBC and hbg was up to 9.2 then 8.4 on 05/21 on discharge. Pt now return with hbg 6 with BUN 32. Pt
admit to some dark stools last 1 prior to admission but now returns with symptomatic anemia with weakness, shortness of breath. Pt has been on Tylenol since admission. Last colonoscopy 3-4 years ago in [place].
Currently in ER noted with dark maroon/black heme + stool. She admits to some nausea but denies vomiting, and mild abdominal pain but denies frequent stools or diarrhea.
Past Medical History
Past Medical History: Hypercholesterolemia, Hypothyroidism and Other (rib fx, scoliosis, headaches )
Past Surgical History: Appendectomy, , Gynecological (hysterectomy) and Other (thyroidectom)
Social History
Tobacco: Former Smoker (quit 10-12 years ago)
Alcohol: Former (social quit 10-12 years ago )
Drug: None
Living: With Family (son)
Employment: Retired
Family History
Family History: Reviewed & Not Pertinent
Allergies / Home Medications
Allergy/AdvReac Type Severity Reaction Status Date / Time
No Known Allergies Allergy Verified 05/25/24 14:49
�Medication �Instructions �Recorded
alprazolam 0.5 mg tablet 0.5 mg PO HSPRN PRN anxiety/sleep 09/25/21
paroxetine HCl 10 mg tablet 10 mg PO DAILY Mental 09/25/21
Health/Anxiety
acetaminophen 300 mg-codeine 30 mg 1 tab PO Q6HPRN PRN severe pain 05/17/24
tablet
rosuvastatin 5 mg tablet 5 mg PO HS High Cholesterol 05/17/24
pantoprazole 40 mg tablet,delayed 40 mg PO BID 8 weeks #112 tabs 05/21/24
release
docusate sodium 100 mg capsule 100 mg PO DAILYPRN PRN constipation 05/25/24
(Colace)
levothyroxine 75 mcg tablet 75 mcg PO DAILY 05/25/24
(Synthroid)
Review of Systems
-
History Source: Patient and Family
Constitutional: Reports Weight Loss (few lbs with recent admission)
EENT: Reports No Symptoms
Respiratory: Reports No Symptoms
Cardiac: Reports No Symptoms
Abdomen/GI: Reports Abdominal Pain (mild ), Nausea and Black Stools
: Reports No Symptoms
Musculoskeletal: Reports Other (chronic pain with scoliosis )
Skin: Reports No Symptoms
Neurological: Reports Dizzy and Weakness
Endocrine: Reports No Symptoms
Hematologic/Lymphatic: Reports Bleeding
Vital Signs
Temp Pulse Resp BP Pulse Ox
97.8 F 71 15 100/51 82
05/25/24 14:49 05/25/24 16:31 05/25/24 16:31 05/25/24 16:31 05/25/24 14:49
Physical Exam
Exam
General: Well Developed, Well Nourished and No Apparent Distress
HEENT: Normocephalic and Anicteric
Respiratory: Clear
Cardiac: Regular Rhythm
GI: Soft, Non Tender and Non Distended
Rectal: Other (black/marroon stool per ER)
Musculoskeletal: No Clubbing and No Cyanosis
Skin: Warm and Dry
Neuro: Awake, Alert and AO x 3
Psych: Calm
Results
WBC 5.2 10^3/uL (4.8-10.8) 05/25/24 15:32
Hgb 6.0 g/dL (12.0-16.0) L* D 05/25/24 15:32
Hct 18.2 % (37.0-47.0) L* 05/25/24 15:32
MCV 92.4 fL (81.0-99.0) 05/25/24:
Plt Count 318 10^3/uL (130-400) 05/25/24:
Absolute Neuts (auto) 2.6 10^3/uL (1.4-6.5) 05/25/24 15:
PT 13.3 Sec (11.4-14.6) 05/25/24:
INR 0.98 05/25/24:
Sodium 134 mmol/L (135-145) L 05/25/24:
Potassium 3.2 mmol/L (3.5-5.1) L 05/25/24
Chloride 100 mmol/L (98-107) 05/25/24:
Carbon Dioxide 26 mmol/L (22-30) 05/25/24:
BUN 32 mg/dl (7-17) H 05/25/24:
Creatinine 0.7 mg/dL (0.6-1.0) 05/25/24:
Calcium 8.4 mg/dl (8.4-10.2) 05/25/24:
Total Bilirubin 0.3 mg/dl (0.2-1.3) 05/25/24:32
AST 43 U/L (14-36) H 05/25/24:
ALT 21 U/L (0-35) 05/25/24:
Alkaline Phosphatase 41 U/L (38-126) 05/25/24:32
Diagnostic Image Results:
Prior GI Procedures:
EGD: 05/18/24 - Large, non-bleeding, deeply penetrating gastric
ulcer with a flat pigmented spot (Baljit Class IIc)
found in the gastric body. This was approximately 3 cm
in size. For prevention of rebleeding and additional
hemostasis, hemostatic spray was applied (Endoclot).
No bleeding during or at the end of the procedure. No
biopsies were performed given the risk of re-bleeding.
- Otherwise, normal stomach on direct and retroflexion
views
- Normal duodenum up to the third portion
- Normal esophagus.
- The examination was otherwise normal without any old
or fresh blood throughout the examined upper GI tract
- No specimens collected.
Colonoscopy: Last colonoscopy 3-4 years ago in [place].
Assessment / Plan
-
Pt is an 83yo with hx scoliosis with recent NSAID use, Prior GI bleed in with 6 units transfused during admission, headache, hypothyroidism, hypercholesterolemia, prior appe, , hysterectomy, thyroidectomy with recent admission
05/17 -05/21/24 with hematemesis. Pt was noted with anemia with hbg down to 6.2 with hypotension and tachycardia on admission. There was concern for antibodies and pt was transfused under emergency protocol. Pt was given PPI and completed EGD with
large non bleeding deep penetrating 3cm gastric ulcer with flat pigmented spot in gastric body. Hemospray was applied. Pt was given 2 units PRBC and hbg was up to 9.2 then 8.4 on 05/21 on discharge. Pt now return with hbg 6 with BUN 32. Pt
admit to some dark stools last 1/ prior to admission but now returns with symptomatic anemia with weakness, shortness of breath. Pt has been on Tylenol since admission. Last colonoscopy 3-4 years ago in [place].
-symptomatic anemia
-recent EGD with large deep penetrating 3 cm gastric ulcer with flat spot
-continued melena
-scoliosis with recent NSAID use -- stopped after recent admission
-hypokalemia
-hyponatremia
other med problems:
-GI bleed
-headaches
-hypothyroidism
-prior appe
-
-hysterectomy
-thyroidectomy
PLAN:
pt likely with continued oozing from large ulcer noted on recent EGD
with rise in BUN likely rebleeding
agree with transfusion
for EGD in AM to see if any further intervention can be done
cont PPI gtt
ok for clears- NPO in AM
trend hbg
NSAID avoidance
consider OP pain management
correct K per medical team
updated family at bedside
-
-
Thank you for consultation and allowing me to participate in the patient's care. Please call the licensed occupational therapist GI physician during the after hours with any questions or concerns.
--- NOTE | 2024-05-25 17:17 | HPS.HSE ---
Family Physician
-
Family Physician: Natasha George
Chief Complaint
-
shortness of breath and black stools
History of Present Illness
Patient is a 83-year-old female with past medical history significant for hyperlipidemia, hypothyroidism, and anxiety who presented to [facility] for evaluation of black tarry stools and shortness of breath for last 2 days. Patient recently
discharged on 05/21/2024 for GI bleed which they found deeply penetrating gastric ulcer found in the gastric body. Patient reports since getting home she has had increased weakness, increased shortness of breath and black tarry stools with
intermittent associated nausea. Ultimately, the increased weakness and shortness of breath is what brought her back to the ED. Patient denies any fever, chills, vomiting, cough, palpitations, chest pain, constipation or urinary symptoms.
Medical History
Past Medical History
Past Medical History: Reports Other
Additional Past Medical History:
hyperlipidemia
hypothyroidism
anxiety
insomnia
interstitial pulmonary disease
osteoporosis
scoliosis
pulmonary fibrosis
Past Surgical History: Reports Other
Additional Past Surgical History:
x3
hysterectomy
appendectomy
thyroidectomy
cataract extraction
hammer toe repair
Social History
Tobacco: Former Smoker (quit 12 years ago)
Alcohol: None
Drug: None
Personal:
Living: With Family
Employment: Retired
Family History
Family History: Not pertinent
Allergies / Home Medications
Allergies reflects when Allergies were last updated in Immediately.
Home Medications with original date entered in [facility]
Allergy/Medication List:
Allergies
Allergy/AdvReac Type Severity Reaction Status Date / Time
No Known Allergies Allergy Verified 05/25/24 14:49
Home Medications
alprazolam 0.5 mg tablet 0.5 mg PO HSPRN PRN anxiety/sleep 09/25/21
paroxetine HCl 10 mg tablet 10 mg PO DAILY Mental Health/Anxiety 09/25/21
acetaminophen 300 mg-codeine 30 mg tablet 1 tab PO Q6HPRN PRN severe pain 05/17/24
rosuvastatin 5 mg tablet 5 mg PO HS High Cholesterol 05/17/24
pantoprazole 40 mg tablet,delayed release 40 mg PO BID 8 weeks #112 tabs 05/21/24
docusate sodium 100 mg capsule (Colace) 100 mg PO DAILYPRN PRN constipation 05/25/24
levothyroxine 75 mcg tablet (Synthroid) 75 mcg PO DAILY 05/25/24
Review of Systems
-
History Source: Patient
Constitutional: Reports Fatigue
EENT: Reports No Symptoms
Respiratory: Reports Trouble Breathing (shortness of breath)
Cardiac: Reports No Symptoms
Abdomen/GI: Reports Nausea and Black Stools
: Reports No Symptoms
Musculoskeletal: Reports No Symptoms
Skin: Reports No Symptoms
Neurological: Reports Weakness
Endocrine: Reports No Symptoms
Hematologic/Lymphatic: Reports No Symptoms
Psych: Reports No Symptoms
Physical Exam
Vital Signs
Vital Signs
Temp Pulse Resp BP Pulse Ox
97.8 F 70 15 100/51 82
05/25/24 14:49 05/25/24 16:45 05/25/24 16:45 05/25/24 16:31 05/25/24 14:49
Physical Exam
General: Well Developed, Well Nourished and No Apparent Distress
HEENT: NormoCephalic, Moist mucous membranes and Atraumatic
Respiratory: Clear and Decreased Breath Sounds
Cardiac: S1/S2 and Regular Rhythm; No Murmur, Rub or Gallop
GI: Soft, Non Tender and Normal Bowel Sounds; No Organomegaly
Rectal: Deferred by Provider
Genito-urinary: Deferred by me
Musculoskeletal: No Clubbing, No Cyanosis and No Edema
Skin: Warm and IV/Catheter Site; No Rash
Neuro: Awake, Alert, AO x 3 and Nonfocal/grossly intact
Psych: Calm and Intact Judgment/Insight
Laboratory Results
-
05/25/24 15:32
05/25/24 15:32
Laboratory Results
PT 13.3 Sec (11.4-14.6) 05/25/24 15:52
INR 0.98 05/25/24 15:52
Total Bilirubin 0.3 mg/dl (0.2-1.3) 05/25/24 15:32
AST 43 U/L (14-36) H 05/25/24 15:32
ALT 21 U/L (0-35) 05/25/24 15:32
Alkaline Phosphatase 41 U/L (38-126) 05/25/24 15:32
Data Reviewed
-
Diagnostic Radiology: Report Reviewed by me (Chest: As described, findings suggestive of pneumonitis superimposed on chronic changes of emphysema and interstitial fibrosis. No evidence for significant pleural effusion)
Medical Tests (Nuc Med, Echo, EKG etc): Report Reviewed by me (EKG: NORMAL SINUS RHYTHM MINIMAL VOLTAGE CRITERIA FOR LVH, MAY BE NORMAL VARIANT ( R in aVL ) CANNOT RULE OUT ANTERIOR INFARCT , AGE UNDETERMINED)
Lab Data: Labs Reviewed by me (Hgb 6.0/Hct 18.2, K+ 3.2, BUN 32, Creat 0.7)
Impression/Plan
-
IMPRESSION/PLAN:
#GI bleed
reported melena
Hgb 6.08/Hct 18.2
- Admit to telemetry
- GI consult
- monitor H/H
- Protonix gtt
- transfuse for Hgb <7.0
- NPO in morning for scope (clear fluids overnight)
#hyperlipidemia
- continue rosuvastatin
#hypothyroidism
- continue levothyroxine
#anxiety
#insomnia
- continue alprazolam and paroxetine
#osteoporosis
#scoliosis
- continue acetaminophen-codeine PRN
#interstitial pulmonary disease
#pulmonary fibrosis
Code Status: Full Code
DVT Prophylaxis: SCDs
--- NOTE | 2024-05-25 17:49 | W.PN.UPDATE ---
Update Note
Progress Note Update
This note serves as an addendum to the H&P by tariff compiling clerk RADHA Sherry Nleson
HPI
83F HX HLD, Hypothyroid , scoliosis, recent admission hemorrhagic Shock/Acute Blood Loss Anemia due to UGIB due to large sen at ER:
- fatigue & Avila
- Black stool for 2 or 3 days
- PCP saw the patient apparently had a borderline blood pressure low sats referred to the ER
Vital Signs
Temp Pulse Resp BP Pulse Ox
97.8 F 70 19 103/53 99
05/25/24 14:49 05/25/24 17:30 05/25/24 17:30 05/25/24 17:30 05/25/24 17:30
PE
Gen: Pale, SoB with minimal exertion
HEENT:pale conjunctiva
Neck: supple
Lungs: CTA
Cor: RRR
Abdomen: soft , NT
MINH by ER: Very dark maroon/black heme positive
HAT BAND ATTACHER: AAO3, NFND
MS:
Psych:. interactive and cooperative
Laboratory Tests
05/21/24 05/25/24 05/25/24
06:16 15:32 15:52
Hgb 8.4 L 6.0 L* D
INR 0.98
Sodium 134 L
Potassium 3.2 L
Creatinine 0.7
eGFR > 60.00
CXR
- findings suggestive of pneumonitis superimposed on chronic changes of emphysema and interstitial fibrosis.
- No evidence for significant pleural effusion.
Last hospitalist admission: Date of Admission: 05/17/24 - Date of Discharge: 05/21/24
DC DXS: Hemorrhagic Shock/Acute Blood Loss Anemia due to UGI Bleed
Large Gastric Ulcer
ASSESSMENT & PLAN
Pending Rx reconciliation
Recurrent HoB POS black/ maroon stool recurrent UGIB
Associated ACBLA with interval new worsening anemic Hgb 6 . Baseline was 8s
Marginal hypotension
Recent admission for Hemorrhagic Shock/Acute Blood Loss Anemia due to UGI Bleed
HX Large Gastric Ulcer due to NSAIDS
No longer on NSAIDs
- T & C, Agree with Blood Tx 2u PRBCS
- PPI gtt
- sips of clear , NPO after MN
- For EGD in AM if Hgb is appropriate
- GI consulted
Hypercholesteremia
-Continue statin
HX thyroidectomy/hypothyroidism
-Continue levothyroxine
Anxiety/depression
-Continue paroxetine
Scoliosis
DVT Px: SCd
Full code
IP TLM
[2024-05-25] MEDS: KCL 20 MEQ PO (18:23)
[2024-05-25] MEDS: CRESTOR 5 MG PO (20:29)
[2024-05-25] MEDS: XANAX 0.5 MG PO (20:29)
[2024-05-25] MEDS: TYLENOL 650 MG PO (20:29)
[2024-05-25] MEDS: TYLENOL #3 1 TABLET PO (22:10)
[2024-05-26] VITALS (12 sets, daily range): BP systolic 13–142; BP diastolic 42–94; PULSE 57–64
[2024-05-26] MEDS: TYLENOL #3 1 TABLET PO ×2 (04:03→13:07)
[2024-05-26] MEDS: SYNTHROID 75 MCG PO (04:03)
[2024-05-26 07:21] LABS: Hematocrit 29.1 % (37.0-47.0); Hemoglobin 9.9 g/dL (12.0-16.0); Mean Corpuscular Hgb 30.3 pg (27.0-31.0); Mean Platelet Volume 9.5 fL (7.4-10.4); Platelet Count 280 10^3/uL (130-400); Red Blood Cell Count 3.27 10^6/uL (4.20-5.40); Red Cell Dist. Width 15.1 % (11.5-14.5); White Blood Cell Count 6.2 10^3/uL (4.8-10.8)
[2024-05-26 07:42] LABS: Blood Urea Nitrogen 23 mg/dl (7-17); Calcium 7.9 mg/dl (8.4-10.2); Carbon Dioxide 24 mmol/L (22-30); Chloride 104 mmol/L (98-107); Estimated Creatinine Clearance 43 ml/min; Glucose 84 mg/dl (70-99); Potassium 3.2 mmol/L (3.5-5.1); Sodium 138 mmol/L (135-145); eGFR > 60.00
[2024-05-26] MEDS: PROTONIX IV 40 MG IV ×2 (08:18→21:21)
[2024-05-26] MEDS: NSS (PRESERVATIVE FREE) 10 ML IV ×2 (08:18→21:21)
[2024-05-26] MEDS: PAXIL 10 MG PO (10:39)
[2024-05-26] MEDS: CARAFATE SUSPENSION 1 GM PO ×2 (10:39→21:21)
--- NOTE | 2024-05-26 10:44 | PTCARENOTE ---
pt back from GI lab s/p EGD. pt is AAO*3, Vss, room air. denies any pain. pt is on clears. pt is oriented to the room. call mendez within the reach. plan of care ongoing.
--- NOTE | 2024-05-26 12:34 | W.PN.HOSP.TC ---
Addendum entered and electronically signed by Beatriz Bermudez MD 05/26/24 14:04:
I personally performed a history and physical exam of the patient and discussed management with the resident. I reviewed the resident's note and agree with the documented findings and plan of care HPI/CC.
A/P:
# Acute Blood Loss Anemia 2/2 Recurrent UGIB
Patient recently discharged on 05/21; s/p EGD w/ Endoclot of large gastric ulcer
Returned on 05/25/2024 for persistent anemia/GI bleed
Hemoglobin 6.0 this admission, transfused 2 unit PRBC, responded appropriately to 9.9
Status post EGD 05/26/2024, noted nonbleeding gastric ulcer, status post cauterization and clip
Clear Liquid Diet; advance as tolerated
Continue Protonix 40 mg IV BID
Added Sucralfate 1 g PO BID
Repeat EGD in 8 weeks with GI outpt
Continue to hold NSAID
# HLD
Continue Statin
# Hypothyroidism 2/2 thyroidectomy
Continue Synthroid
# Anxiety/Depression
Continue Paroxetine
DVT ppx: SCD
FC
Original Note:
Today's Communication/Plan
-
.
Assessment / Plan
Assessment / Plan
1. Acute Blood Loss Anemia 2/2 Recurrent UGIB
- Patient recently discharged on 05/21; s/p EGD w/ Endoclot of large gastric ulcer
- ED: Hb 6, transfused 2U pRBC, Hb 9.9 in AM; continue to monitor CBCs
- History of NSAID use, has not used since last admission; avoid NSAIDs
- EGD this AM (appreciate GI reccs):
- Non-obstructing non-bleeding gastric ulcer with
pigmented material. There is no evidence of
perforation. Treated with bipolar cautery. Clip was
placed.
- Clear Liquid Diet; advance as tolerated
- Protonix 40 mg IV BID
- Sucralfate 1 g PO BID
- Repeat EGD in 8 weeks
2. HLD
- Continue Statin
3. Hypothyroidism 2/2 thyroidectomy
- Continue Levo
4. Anxiety/Depression
- Continue Paroxetine
Anticipated Discharge: 24 - 48 hours
Subjective/Interval History
-
Date of Service: May 26, 2024
Patient seen and examined while resting comfortably in bed awaiting her endoscopy. Patient and I went over her interval history since last discharge 5 days ago. Briefly, patient began to feel fatigued, lightheaded, with mild SOB and JACKSON. Patient
notes she continued to have dark stools. Went to her PCP yesterday who noted borderline hypotension and sent her to the ED. Hb 6.0 in ED, given 2U pRBC with adequate response.
Overnight, patient states that she is feeling okay, although she was not able to sleep well last night and has a mild headache. Specifically denies abdominal pain, nausea, vomiting, chest pain, SOB.
Objective Data
-
Labs:
Laboratory Results
05/26/24
06:49
WBC 6.2
Hgb 9.9 L D
Hct 29.1 L
Plt Count 280
Sodium 138
Potassium 3.2 L
Chloride 104
Carbon Dioxide 24
BUN 23 H
Creatinine 0.6
Glucose 84
Calcium 7.9 L
Vital Signs:
Vital Signs
Temp Pulse Resp BP Pulse Ox
97.9 F 58 18 119/61 94
05/26/24 11:41 05/26/24 10:05 05/26/24 11:41 05/26/24 10:05 05/26/24 11:41
I&O
05/25/24 05/26/24 05/27/24
06:59 06:59 06:59
Intake Total 500 / 500
Balance 500 / 500
Review of Systems
-
History Source: Patient
Constitutional: Reports No Symptoms
Respiratory: Reports No Symptoms
Cardiac: Reports No Symptoms
Abdomen/GI: Reports No Symptoms
Neuro: Reports No Symptoms and Headache
Physical Exam
-
General: Well Developed and Well Nourished
HEENT: Normocephalic and Atraumatic
Respiratory: Crackles (mild, right lung, chronic)
Cardiac: Regular Rhythm and S1/S2
GI: Soft and Nontender
Skin: Warm
Neuro: Awake, Alert and Oriented
Psych: Calm
Data Reviewed
-
Labs: Labs Reviewed by me and Discussed with Patient
[2024-05-26 16:04] LABS: Albumin 2.9 g/dl (3.5-5.0); Magnesium 2.1 mg/dl (1.6-2.3)
[2024-05-26] MEDS: KCL 270 MEQ IV (16:07)
[2024-05-26 16:22] LABS: Glucose - Point of Care 81 mg/dl (70-99)
[2024-05-26] MEDS: XANAX 0.25 MG PO (16:53)
--- NOTE | 2024-05-26 16:55 | PTCARENOTE ---
pt c/o feeling weak, nauseous. pt states feeling anxious with lack of sleep. Vss stable, glucose WNL. Resident notified, Hemoglobin drawn, one time Xanax given as ordered.
[2024-05-26 17:02] LABS: Hemoglobin 10.3 g/dL (12.0-16.0)
[2024-05-26] MEDS: XANAX 0.5 MG PO (21:21)
[2024-05-26] MEDS: MELATONIN 3 MG PO (21:21)
[2024-05-26] MEDS: CRESTOR 5 MG PO (21:21)
[2024-05-27] VITALS (7 sets, daily range): BP systolic 122–146; BP diastolic 58–75; PULSE 75; O2SAT 95
[2024-05-27] MEDS: SYNTHROID 75 MCG PO (05:20)
[2024-05-27] MEDS: PAXIL 10 MG PO (08:04)
[2024-05-27] MEDS: CARAFATE SUSPENSION 1 GM PO ×2 (08:04→19:40)
[2024-05-27] MEDS: PROTONIX IV 40 MG IV ×2 (08:04→19:40)
[2024-05-27] MEDS: NSS (PRESERVATIVE FREE) 10 ML IV ×2 (08:05→19:40)
[2024-05-27 08:57] LABS: Hematocrit 33.6 % (37.0-47.0); Hemoglobin 11.3 g/dL (12.0-16.0); Mean Corp Hgb Conc. 33.6 g/dL (33.0-37.0); Mean Corpuscular Hgb 30.5 pg (27.0-31.0); Mean Corpuscular Volume 90.8 fL (81.0-99.0); Mean Platelet Volume 9.3 fL (7.4-10.4); Platelet Count 339 10^3/uL (130-400); Red Cell Dist. Width 16.3 % (11.5-14.5); White Blood Cell Count 5.9 10^3/uL (4.8-10.8)
[2024-05-27 10:17] LABS: Blood Urea Nitrogen 7 mg/dl (7-17); Calcium 7.8 mg/dl (8.4-10.2); Carbon Dioxide 26 mmol/L (22-30); Chloride 104 mmol/L (98-107); Estimated Creatinine Clearance 43 ml/min; Glucose 99 mg/dl (70-99); Potassium 3.6 mmol/L (3.5-5.1); Sodium 138 mmol/L (135-145); eGFR > 60.00
--- NOTE | 2024-05-27 11:04 | W.PN.HOSP.TC ---
Addendum entered and electronically signed by Beatriz Bermudez MD 05/27/24 13:13:
I personally performed a history and physical exam of the patient and discussed management with the resident. I reviewed the resident's note and agree with the documented findings and plan of care HPI/CC.
A/P:
# Acute Blood Loss Anemia 2/2 Recurrent UGIB 2/2 gastric ulcer
Patient recently discharged on 05/21; s/p EGD w/ Endoclot of large gastric ulcer
Returned on 05/25/2024 for persistent anemia/GI bleed
Status post EGD 05/26/2024, noted nonbleeding gastric ulcer, status post cauterization and clip
Hemoglobin 6.0 on admission, transfused 2 unit PRBC, responded appropriately, Hgb today at 11.3
Diet advanced to low residue
Continue Protonix 40 mg IV BID
Added Sucralfate 1 g PO BID
Repeat EGD in 8 weeks with GI outpt
Continue to hold NSAID
# HLD
Continue Statin
# Hypothyroidism 2/2 thyroidectomy
Continue Synthroid
# Anxiety/Depression
Continue Paroxetine
DVT ppx: SCD
FC
Original Note:
Today's Communication/Plan
-
.
Assessment / Plan
Assessment / Plan
1. Acute Blood Loss Anemia 2/2 Recurrent UGIB
- Patient recently discharged on 05/21; s/p EGD w/ Endoclot of large gastric ulcer
- ED: Hb 6, transfused 2U pRBC, Hb 11.3 in AM and steadily improving; continue to monitor CBCs
- History of NSAID use, has not used since last admission; avoid NSAIDs
- EGD this AM (appreciate GI reccs):
- Non-obstructing non-bleeding gastric ulcer with
pigmented material. There is no evidence of
perforation. Treated with bipolar cautery. Clip was
placed.
- Advance to low residue diet per GI.
- Protonix 40 mg IV BID
- Sucralfate 1 g PO BID
- Repeat EGD in 8 weeks
- PT/OT today.
- Disposition Planning
2. HLD
- Continue Statin
3. Hypothyroidism 2/2 thyroidectomy
- Continue Levothyroxine
4. Anxiety/Depression
- Continue Paroxetine
Anticipated Discharge: Within 24 hours
Subjective/Interval History
-
Date of Service: May 27, 2024
Patient seen and examined while resting comfortably in bed, about to order breakfast. The patient states that she is feeling much better today after a restful night's sleep. The patient notes that her bowel movements are improving with regards to
color. She other tatum denies any abdominal pain, nausea vomiting, chest pain, SOB and states that she has been tolerating her clear liquid diet without issue.
Objective Data
-
Labs:
Laboratory Results
05/27/24
08:05
WBC 5.9
Hgb 11.3 L
Hct 33.6 L
Plt Count 339 D
Sodium 138
Potassium 3.6
Chloride 104
Carbon Dioxide 26
BUN 7
Creatinine 0.6
Glucose 99
Calcium 7.8 L
Vital Signs:
Vital Signs
Temp Pulse Resp BP Pulse Ox
98 F 62 18 129/62 92
05/27/24 07:31 05/27/24 07:31 05/27/24 07:31 05/27/24 07:31 05/27/24 08:30
I&O
05/26/24 05/27/24 05/28/24
06:59 06:59 06:59
Intake Total 500 / 500
Balance 500 / 500
Review of Systems
-
History Source: Patient
Constitutional: Reports No Symptoms
Respiratory: Reports No Symptoms
Cardiac: Reports No Symptoms
Abdomen/GI: Reports Black Stools (improving. ); Denies Abdominal Pain, Nausea, Vomiting or Diarrhea
Musculoskeletal: Reports No Symptoms
Neuro: Reports No Symptoms
Physical Exam
-
General: No Apparent Distress and Comfortable
HEENT: Normocephalic, Atraumatic and Moist Mucous Membranes
Respiratory: Crackles (right lung field, chronic; otherwise CTAB) and Non Labored Respirations
Cardiac: Regular Rhythm
GI: Soft, Nontender, Nondistended and Normal Bowel Sounds
Musculoskeletal: No Clubbing, No Cyanosis and No Edema
Skin: Warm and Dry
Neuro: Awake, Alert and Oriented
Psych: Calm
Data Reviewed
-
Labs: Labs Reviewed by me and Discussed with Patient
--- NOTE | 2024-05-27 13:35 | PN.CDI ---
CDI
- -
CDI:
Physician Documentation Request
Admit Date: 05/25/24 19:06
Dear Doctor,
Please review the following and provide your response in the progress notes.
Clinical Indicators:
Pt admitted with Recurrent GI bleed/ ABLA /Recurrent Gastric Ulcer
Documented per EGD, ' One non-obstructing non-bleeding cratered gastric ulcer with pigmented material was found on the posterior wall of the stomach. The lesion was 30 mm in largest dimension..... There was erythema with some oozing on contact
at the edges of the ulcer. Coagulation for tissue destruction using bipolar probe was successful at the pigmented material, single fibrous protrusion and also the edges of the ulcer. For hemostasis, one hemostatic clip was successfully placed.'
Please clarify which of the following accurately represents the acuity of the ( Gastric Ulcer )
Acute on Chronic
Acute
Other ( please specify)
Use of terms such as suspected, likely, concern for, or probable (associated with a specific diagnosis that is being evaluated, monitored, or treated as if it exists) are acceptable and can be coded in the inpatient setting, when documented at the
time of discharge.
Thank you,
Christina Shepard RN
CDI Specialist
[facility] [place] [facility]
Please use your independent medical judgment in providing your response.
--- NOTE | 2024-05-27 14:47 | PTOTSP ---
Patient independent with all bed mobility, transfers, and ambulation. No skilled PT needs, will sign off.
--- NOTE | 2024-05-27 17:06 | CM ---
Alert awake oriented patient who lives with her son Jessee who lives in a 1 story home with 0 steps to enter. She is independent in driving and in all activities of daily living.Offered VN she declined.
No adaptive devices
Never had VN/SNF
Pharmacy [facility]
PCP Dr George
PLAN Home no needs
--- NOTE | 2024-05-27 18:29 | W.PN.GI.CBS2 ---
Today's Communication / Plan
-
Recommendation: -No further drop in hemoglobin and no further bleeding.
-Continue Protonix (pantoprazole) 40 mg IV twice a day, okay to switch to 40 mg p.o. twice a day at discharge.
- Use sucralfate tablets 1 gram PO BID. it can cause constipation, hold off on sucralfate at discharge.
-Tolerating low residue diet.
- Monitor H/H ,transfuse as needed.
- Will need repeat EGD in 2 months to check for healing as biopsies not taken at this time. Will arrange for follow-up in our office.
Will sign off, please call back if needed.
Assessment / Plan
-
Pt is an 83yo with hx scoliosis with recent NSAID use, Prior GI bleed in with 6 units transfused during admission, headache, hypothyroidism, hypercholesterolemia, prior appe, , hysterectomy, thyroidectomy with recent admission
05/17 -05/21/24 with hematemesis. Pt was noted with anemia with hbg down to 6.2 with hypotension and tachycardia on admission. There was concern for antibodies and pt was transfused under emergency protocol. Pt was given PPI and completed EGD with
large non bleeding deep penetrating 3cm gastric ulcer with flat pigmented spot in gastric body. Hemospray was applied. Pt was given 2 units PRBC and hbg was up to 9.2 then 8.4 on 05/21 on discharge. Pt now return with hbg 6 with BUN 32. Pt
admit to some dark stools last 1/6 prior to admission but now returns with symptomatic anemia with weakness, shortness of breath. Pt has been on Tylenol since admission. Last colonoscopy 3-4 years ago in [place].
-symptomatic anemia
-recent EGD with large deep penetrating 3 cm gastric ulcer with flat spot
-continued melena
-scoliosis with recent NSAID use -- stopped after recent admission
-hypokalemia
-hyponatremia
other med problems:
-GI bleed
-headaches
-hypothyroidism
-prior appe
-
-hysterectomy
-thyroidectomy
EGD- No gross lesions in the entire esophagus.
- Z-line regular, 35 cm from the incisors.
- Small hiatal hernia.
- Bilious gastric fluid.
- Non-obstructing non-bleeding gastric ulcer with
pigmented material. There is no evidence of
perforation. Treated with bipolar cautery. Clip was
placed.
- Normal examined duodenum.
- No specimens collected.
Recommendation: -No further drop in hemoglobin and no further bleeding.
-Continue Protonix (pantoprazole) 40 mg IV twice a day, okay to switch to 40 mg p.o. twice a day at discharge.
- Use sucralfate tablets 1 gram PO BID. it can cause constipation, hold off on sucralfate at discharge.
-Tolerating low residue diet.
- Monitor H/H ,transfuse as needed.
- Will need repeat EGD in 2 months to check for healing as biopsies not taken at this time. Will arrange for follow-up in our office.
Will sign off, please call back if needed.
Subjective
Subjective
Date of Service: May 27, 2024
Patient denies any abdominal pain, nausea or vomiting, she did have 2 bowel movements and 1 was more brown.
Objective
Data Reviewed
Laboratory Data:
Laboratory Results
05/27/24 08:05
05/27/24 08:05
Laboratory Results
PT 13.3 Sec (11.4-14.6) 05/25/24 15:52
INR 0.98 05/25/24 15:52
Magnesium 2.1 mg/dl (1.6-2.3) 05/26/24 06:49
Total Bilirubin 0.3 mg/dl (0.2-1.3) 05/25/24 15:32
AST 43 U/L (14-36) H 05/25/24 15:32
ALT 21 U/L (0-35) 05/25/24 15:32
Alkaline Phosphatase 41 U/L (38-126) 05/25/24 15:32
Vital Signs and I&O:
Vital Signs
Temp Pulse Resp BP Pulse Ox
98.9 F 64 18 139/64 95
05/27/24 15:54 05/27/24 15:54 05/27/24 15:54 05/27/24 15:54 05/27/24 15:54
I&O
05/26/24 05/27/24 05/28/24
06:59 06:59 06:59
Intake Total 500 / 500 480 / 480
Balance 500 / 500 480 / 480
Physical Exam
Physical Exam
GI: Soft, Non Distended and Non Tender
[2024-05-27] MEDS: TYLENOL #3 1 TABLET PO (19:40)
[2024-05-27] MEDS: CRESTOR 5 MG PO (21:23)
[2024-05-27] MEDS: MELATONIN 3 MG PO (21:23)
[2024-05-27] MEDS: XANAX 0.5 MG PO (21:23)
[2024-05-28 03:45] VITALS: BP 136/60
[2024-05-28] MEDS: SYNTHROID 75 MCG PO (05:08)
[2024-05-28 07:07] VITALS: BP 141/64
[2024-05-28 07:27] LABS: Hematocrit 31.1 % (37.0-47.0); Hemoglobin 10.6 g/dL (12.0-16.0); Mean Corp Hgb Conc. 34.1 g/dL (33.0-37.0); Mean Corpuscular Hgb 30.7 pg (27.0-31.0); Mean Corpuscular Volume 90.1 fL (81.0-99.0); Platelet Count 300 10^3/uL (130-400); Red Blood Cell Count 3.45 10^6/uL (4.20-5.40); White Blood Cell Count 5.3 10^3/uL (4.8-10.8)
[2024-05-28 07:50] LABS: Blood Urea Nitrogen 12 mg/dl (7-17); Calcium 8.1 mg/dl (8.4-10.2); Carbon Dioxide 30 mmol/L (22-30); Chloride 101 mmol/L (98-107); Estimated Creatinine Clearance 43 ml/min; Glucose 93 mg/dl (70-99); Potassium 3.2 mmol/L (3.5-5.1); Sodium 138 mmol/L (135-145); eGFR > 60.00
[2024-05-28 08:33] VITALS: BP 125/61
[2024-05-28] MEDS: CARAFATE SUSPENSION 1 GM PO (09:01)
[2024-05-28] MEDS: PAXIL 10 MG PO (09:04)
[2024-05-28] MEDS: KCL 270 MEQ IV (09:04)
[2024-05-28] MEDS: PROTONIX IV 40 MG IV (09:04)
[2024-05-28] MEDS: NSS (PRESERVATIVE FREE) 10 ML IV (09:04)
[2024-05-28 11:44] VITALS: BP 135/65
--- NOTE | 2024-05-28 12:48 | CM ---
MD entered order for discharge.
Spoke with pt she said she was ready for discharge today.
She said her dgt Jena and ton Hooks will drive her home.
IMM reviewed she stated understanding and agrees with dc.
Offered V she declined need.
PLAN Home no needs
--- NOTE | 2024-05-28 12:51 | W.PN.HOSP.TC ---
Addendum entered and electronically signed by Beatriz Bermudez MD 05/28/24 21:54:
total DC time 36 min
Addendum entered and electronically signed by Beatriz Bermudez MD 05/28/24 14:14:
I personally performed a history and physical exam of the patient and discussed management with the resident. I reviewed the resident's note and agree with the documented findings and plan of care HPI/CC.
A/P:
# Acute Blood Loss Anemia 2/2 Recurrent UGIB 2/2 gastric ulcer
Patient recently discharged on 05/21; s/p EGD w/ Endoclot of large gastric ulcer
Returned on 05/25/2024 for persistent anemia/GI bleed
Status post EGD 05/26/2024, noted nonbleeding gastric ulcer, status post cauterization and clip
Hemoglobin 6.0 on admission, transfused 2 unit PRBC, responded appropriately, Hgb today at 10.6
Diet advanced to low residue
Continue Protonix 40 mg BID, continue following discharge until further instructed by outpatient GI.
Added Sucralfate 1 g PO BID during hospital stay, did not continue following discharge
Repeat EGD in 8 weeks with GI outpt
Continue to hold NSAID
# HLD
Continue Statin
# Hypothyroidism 2/2 thyroidectomy
Continue Synthroid
# Anxiety/Depression
Continue Paroxetine
DVT ppx: SCD
FC
Original Note:
Today's Communication/Plan
-
.
Assessment / Plan
Assessment / Plan
1. Acute Blood Loss Anemia 2/2 Recurrent UGIB
- Patient recently discharged on 05/21; s/p EGD w/ Endoclot of large gastric ulcer
- ED: Hb 6, transfused 2U pRBC, Hb 10.6 in AM; stable for 72 hours
- History of NSAID use, has not used since last admission; avoid NSAIDs
- EGD this admission (appreciate GI reccs):
- Non-obstructing non-bleeding gastric ulcer with
pigmented material. There is no evidence of
perforation. Treated with bipolar cautery. Clip was
placed.
- Tolerating low residue diet, continue at home
- Protonix 40 mg IV BID transitioned to pantoprazole 40 mg BID PO
- Stop Sucralfate 1 g PO BID
- Repeat EGD in 8 weeks
- D/c to home
2. HLD
- Continue Statin
3. Hypothyroidism 2/2 thyroidectomy
- Continue Levothyroxine
4. Anxiety/Depression
- Continue Paroxetine
5. Mild Hypokalemia
- 40 meQ IV repletion before d/c
Anticipated Discharge: Today
Subjective/Interval History
-
Date of Service: May 28, 2024
Patient seen and examined while resting comfortably in bed and watching TV. Patient states that she is feeling much better today, and that she got a good night of sleep. Patient notes that the darkness of stool is steadily improving by the day, and
she denies abdominal pain, nausea, vomiting, diarrhea.
Objective Data
-
Labs:
Laboratory Results
05/28/24
06:39
WBC 5.3
Hgb 10.6 L
Hct 31.1 L
Plt Count 300
Sodium 138
Potassium 3.2 L
Chloride 101
Carbon Dioxide 30
BUN 12
Creatinine 0.6
Glucose 93
Calcium 8.1 L
Vital Signs:
Vital Signs
Temp Pulse Resp BP Pulse Ox
98.2 F 58 18 135/65 100
05/28/24 11:44 05/28/24 11:44 05/28/24 11:44 05/28/24 11:44 05/28/24 11:44
I&O
05/27/24 05/28/24 05/29/24
06:59 06:59 06:59
Intake Total 720 / 720
Balance 720 / 720
Review of Systems
-
History Source: Patient
Constitutional: Reports No Symptoms
Respiratory: Reports No Symptoms
Cardiac: Reports No Symptoms
Abdomen/GI: Reports No Symptoms
Neuro: Reports No Symptoms
Physical Exam
-
General: No Apparent Distress and Comfortable
HEENT: Normocephalic, Atraumatic and Moist Mucous Membranes
Respiratory: Crackles (mid right lung, chronic, otherwise CTAB)
Cardiac: Regular Rhythm and S1/S2
GI: Soft, Nontender, Nondistended and Normal Bowel Sounds
Musculoskeletal: No Clubbing, No Cyanosis and No Edema
Skin: Warm and Dry
Neuro: Awake and Alert
Psych: Calm
Data Reviewed
-
Labs: Labs Reviewed by me and Discussed with Patient
--- NOTE | 2024-05-28 14:18 | W.DCSUMMARY ---
Documented by User: Gianluca Salazar DO, Resident 05/28/24 14:30
Discharge Summary
Discharge Data
Date of Admission: 05/25/24
Date of Discharge: 05/28/24
Total time spent discharging patient (in min): 32
-
Pending Results: No
Hospital Course
Jena Maldonado is a 83-year-old female who presented to the emergency department at [facility] on 05/25/2024 for evaluation of black tarry stools and shortness of breath for the preceding 2 days. Of note, the patient had recently been
discharged on 05/21/2024 for outpatient evaluation of a upper gastrointestinal bleed with endoscopic evidence of a deeply penetrating gastric ulcer that was subsequently treated with EndoClot. Following discharge, the patient noticed progressively
increasing weakness, shortness of breath and persistent black and tarry stools. The patient visited her primary care physician who noted borderline hypotension and sent her to the emergency department.
In the emergency department, hemoglobin was 6.0 and the patient was given 2 units of packed red blood cells with adequate response. The patient was admitted for endoscopic evaluation of the known gastric ulcer.
The next day, the patient underwent the endoscopic procedure, where the gastric ulcer was visualized. There was no evidence of perforation, obstruction, or bleeding and the ulcer was treated with cautery and a clip was placed. Biopsies were not
taken at that time. The patient was subsequently treated with intravenous Protonix twice a day, sucralfate tablets twice a day, and diet advancement as tolerated. The patient's hemoglobin remained stable for the next 72 hours, and her diet was
successfully advanced to a low residue diet.
The patient was discharged home on 05/28/2024 and advised to continue taking her pantoprazole 40 mg tablets twice a day and maintain a low residue diet. The patient was advised to follow-up with a bridal stylist sales consultant for a repeat EGD in 2 months to
check for healing, as biopsies were not taken at this visit or prior visit. Additionally, patient should follow-up with her primary care provider for a repeat CBC.
Discharge Plan
-
Patient Disposition: Home (Routine Discharge)
Discharge Diagnosis/Procedures: Acute Blood Loss Anemia
Gastric Ulcer
Condition: Fair
Diet: Low Residue
Activity: As tolerated
Others Tests: Repeat EGD in 8 weeks with the bridal stylist sales consultant.
Referrals:
Natasha George NP [Family Provider] - in less than 1 week
Prescriptions:
Continued
paroxetine HCl 10 MG tablet
10 mg PO DAILY
alprazolam 0.5 MG tablet
0.5 mg PO HSPRN PRN (Reason: anxiety/sleep)
acetaminophen-codeine 300-30 mg Tablet
1 tab PO Q6HPRN PRN (Reason: severe pain)
rosuvastatin 5 mg Tablet
5 mg PO HS
levothyroxine [Synthroid] 75 mcg Tablet
75 mcg PO DAILY
docusate sodium [Colace] 100 mg Capsule
100 mg PO DAILYPRN PRN (Reason: constipation)
pantoprazole 40 mg tablet,delayed release (DR/EC)
40 mg PO BID 56 Days Qty: 112 0RF
Discharge Orders:
Discharge Patient (As Directed); Ordered 05/28/24
Ordered By: Gianluca Salazar
Discharge Date and Time
Discharge Date/Time: 05/28/24 16:37
Print Language: FRENCH

Documented by User: Beatriz Bermudez MD 05/28/24 21:54
Discharge Summary
Discharge Data
Date of Admission: 05/25/24
Date of Discharge: 05/28/24
Discharge Plan
-
Patient Disposition: Home (Routine Discharge)
Discharge Diagnosis/Procedures: Acute Blood Loss Anemia
Gastric Ulcer
Condition: Fair
Diet: Low Residue
Activity: As tolerated
Others Tests: Repeat EGD in 8 weeks with the bridal stylist sales consultant.
Referrals:
Natasha George NP [Family Provider] - in less than 1 week
Prescriptions:
Continued
paroxetine HCl 10 MG tablet
10 mg PO DAILY
alprazolam 0.5 MG tablet
0.5 mg PO HSPRN PRN (Reason: anxiety/sleep)
acetaminophen-codeine 300-30 mg Tablet
1 tab PO Q6HPRN PRN (Reason: severe pain)
rosuvastatin 5 mg Tablet
5 mg PO HS
levothyroxine [Synthroid] 75 mcg Tablet
75 mcg PO DAILY
docusate sodium [Colace] 100 mg Capsule
100 mg PO DAILYPRN PRN (Reason: constipation)
pantoprazole 40 mg tablet,delayed release (DR/EC)
40 mg PO BID 56 Days Qty: 112 0RF
Discharge Orders:
Discharge Patient (As Directed); Ordered 05/28/24
Ordered By: Gianluca Salazar
Discharge Date and Time
Discharge Date/Time: 05/28/24 16:37
Print Language: FRENCH
[2024-05-28 15:52] VITALS: BP 136/60
== END 2024-05-28 16:37 | disposition home or self-care (01) | DRG 378 ==
LOC: 4 EAST ACU 19:06
PROVIDERS: Nurse Practitioner Family; ADMITTING PHYSICIAN Internal Medicine; ATTENDING PHYSICIAN Internal Medicine; CONSULT PHYSICIAN Internal Medicine Gastroenterology; EMERGENCY PHYSICIAN Emergency Medicine; FAMILY PHYSICIAN Internal Medicine
PROC: 30233N1 Transfusion of Nonautologous Red Blood Cells into Peripheral Vein, Percutaneous Approach (ICD-10-PCS; 2024-05-25)
PROC: 0W3P8ZZ Control Bleeding in Gastrointestinal Tract, Via Natural or Artificial Opening Endoscopic (ICD-10-PCS; 2024-05-26)
PROC: 0DJ08ZZ Inspection of Upper Intestinal Tract, Via Natural or Artificial Opening Endoscopic (ICD-10-PCS; 2024-05-26)
DX: K25.4 Chronic or unspecified gastric ulcer with hemorrhage (principal); D62 Acute posthemorrhagic anemia; F17.200 Nicotine dependence, unspecified, uncomplicated; K44.9 Diaphragmatic hernia without obstruction or gangrene; E78.00 Pure hypercholesterolemia, unspecified; E89.0 Postprocedural hypothyroidism; F41.9 Anxiety disorder, unspecified; F32.A Depression, unspecified
CPT/HCPCS: 71045; 80048; 80053; 82040; 82962; 83735; 85018; 85025; 85027; 85610; 86850; 86870; 86900; 86901; 86920; 86922; 93005; 96361; 96374; 96375; 97116; 97161; 97165; 99291; P9016

== ENCOUNTER → 2024-07-19 13:48 | Outpatient (REF) | payer MEDICARE, SELFPAY | LOC: WDC 13:48 | PROVIDERS: ATTENDING PHYSICIAN Internal Medicine | DX: Z12.31 Encounter for screening mammogram for malignant neoplasm of breast (principal) | CPT/HCPCS: 77063; 77067 ==

== ENCOUNTER 2024-08-10 06:32 | Day surgery (SDC) | payer MEDICARE, SELFPAY | END 2024-08-10 09:33 | disposition home or self-care (01) | LOC: GI 06:32 | PROVIDERS: ATTENDING PHYSICIAN Student in an Organized Health Care Education/Training Program | DX: K44.9 Diaphragmatic hernia without obstruction or gangrene (principal); K31.89 Other diseases of stomach and duodenum; K25.0 Acute gastric ulcer with hemorrhage; K29.50 Unspecified chronic gastritis without bleeding | CPT/HCPCS: 43239; 88305; 88342 ==

== ENCOUNTER → 2024-11-23 11:23 | Outpatient (REF) | payer MEDICARE, SELFPAY | LOC: RAD 11:23 | PROVIDERS: ATTENDING PHYSICIAN Registered Nurse; FAMILY PHYSICIAN Internal Medicine | DX: M54.6 Pain in thoracic spine (principal); M41.9 Scoliosis, unspecified | CPT/HCPCS: 72072 ==

== ENCOUNTER 2024-12-21 20:51 | Emergency (ER) | payer MEDICARE, SELFPAY ==
[2024-12-21 20:53] VITALS: BP 113/60
[2024-12-21 21:32] VITALS: BP 120/62
[2024-12-21 21:44] VITALS: BMI 21.8
[2024-12-21 22:00] VITALS: BP 118/60
--- NOTE | 2024-12-21 22:51 | ED.GENMED ---
History of Present Illness
General
Chief Complaint: Fall
Source: patient
Exam Limitations: none
Time Seen by Provider: 12/21/24 22:43
History of Present Illness
History of Present Illness:
See MDM
Past History
Past History
ED Past Medical History: Hypercholesterolemia, Hypothyroidism and Other (Hypothyroidism, previous fractured ribs on the right posterior)
ED Past Surgical History: Appendectomy, , Gynecological (Hysterectomy) and Other (Thyroidectomy)
Social History
Tobacco: Smoker
Alcohol: None
Living: with family
Family History
Family History: Negative Diabetes, Early CAD or CAD
Phy Exam
Physical Exam
Physical Exam:
See MDM
Course
Orders/Labs/Results
Orders:
Orders
12/21/24 20:56
Electrocardiogram (*1) Urgent
Reason for Study: Chest Pain
EKG- Treatment ONCE
12/21/24 22:50
CT Facial Bones W/o Iv Contras Urgent
Comment:
Reason For Exam: fall, left facial injury
CT Head W/o Iv Contrast Urgent
Comment:
Reason For Exam: fall, head injury
Chest wo Contrast CT [CT Chest W/o Iv Contrast] Urgent
Comment:
Reason For Exam: chest and rib and back pain after fall
Oxycodone/Acetaminophen [Percocet 5/325] 1 tablet PO NOW STA
12/21/24 23:21
Complete Blood Count/With Diff Urgent
Comprehensive Metabolic Panel Urgent
12/22/24 00:04
Oxycodone/Acetaminophen [Percocet 5/325] 1 tablet PO NOW STA
Abnormal Lab Results
12/21/24
23:21
RBC 3.99 L 10^6/uL
(4.20-5.40)
MCH 32.3 H pg
(27.0-31.0)
Absolute Neuts (auto) 6.9 H 10^3/uL
(1.4-6.5)
Absolute Monos (auto) 0.7 H 10^3/uL
(0.1-0.6)
Sodium 133 L mmol/L
(135-145)
AST 39 H U/L
(14-36)
12/21/24 23:21
12/21/24 23:21
Vital Signs
Initial and Last Documented VS:
Initial Vital Signs
Temp Pulse Resp BP Pulse Ox
98 F 65 16 113/60 97
12/21/24 20:53 12/21/24 20:53 12/21/24 20:53 12/21/24 20:53 12/21/24 20:53
Last Documented Vital Signs
Temp Pulse Resp BP Pulse Ox
98 F 64 25 118/60 95
12/21/24 20:53 12/21/24 22:45 12/21/24 22:45 12/21/24 22:00 12/21/24 22:54
MDM/Problems Addressed
Differential Diagnosis Includes:
Note:
CHIEF COMPLAINT(S)
Fall while walking the dog, followed by chest and back pain.
HISTORY OF PRESENT ILLNESS
The patient is an 84-year-old female who presented following a fall while walking a dog. The incident was reported by a neighbor who observed the patient looking unsteady before she fell onto the road. After the fall, she was found by her
[id number], with other bystanders present. The patient reports experiencing chest and upper back pain but denies any head pain. She has a known history of chronic back pain. Upon examination, no significant external injuries were observed. The
patient mentioned her pain management history includes tramadol combined with Tylenol extra strength, which she reports as ineffective. She expressed willingness to receive a dose of Percocet for pain relief in the emergency department. Her tetanus
vaccination is up to date.
CHRONIC MEDICAL CONDITIONS SIGNIFICANTLY AFFECTING CARE
Chronic back pain.
REVIEW OF SYSTEMS
- Neurological: Patient experienced unsteadiness before the fall.
- Musculoskeletal: Pain in the chest and upper back.
PHYSICAL EXAM
General: Alert, no acute distress.
Skin: Warm, dry. Small abrasions to left forehead and left cheek
Head: Normocephalic,
Neck: Appears supple, trachea midline. No cervical tenderness
Eyes, Ears, Nose, Mouth, and Throat: Oral mucosa moist.
Cardiovascular: No signs of cyanosis
Respiratory: Respirations are non-labored.
Abdomen: Non-distended
Musculoskeletal: No deformities. No hip tenderness
Back: No lumbar tenderness. Very mild parathoracic tenderness
Neurological: No focal neurological deficit observed.
Psychiatric: Cooperative, appropriate mood and affect.
PROBLEM LIST
Acute Problems:
- Fall with reported unsteadiness
- Chest pain
- Upper back pain
Chronic Problems:
- Chronic back pain
PLAN
1. Imaging: Perform a CT scan of the head, face, and chest to assess for fractures or other injuries, extending to the chest area due to concern for osteoporosis-related fractures.
2. Blood Work: Conduct basic blood tests to evaluate for anemia, sodium levels, and other potential contributors to dizziness or weakness.
3. Pain Management: Administer a dose of Percocet for the patients pain due to reported ineffectiveness of tramadol.
4. Monitor: Observe the patient for stability and ensure safe ambulation before discharge.
DIFFERENTIAL DIAGNOSIS
The Differential Diagnosis includes, in no particular order and is not limited to:
- Orthostatic hypotension
- Syncope
- Benign paroxysmal positional vertigo
- Vestibular dysfunction
- Anemia
- Dehydration
- Hypoglycemia
- Osteoporotic fracture
- Cardiac arrhythmia
- Stroke or transient ischemic attack
SUMMARY OF ENCOUNTER
The patient, an 84-year-old female, presented to the emergency department following a fall while walking a dog, where she subsequently experienced chest and upper back pain. A neighbor observed the patients unsteadiness prior to the fall. She
reported a history of chronic back pain and her current pain management with tramadol and acetaminophen was ineffective. Thus, a dose of Percocet was administered for more effective pain relief. Her vital signs were stable, and after a physical
examination revealed no significant external injuries, imaging and blood work were carried out.
DISPOSITION
Discharge
ASSESSMENT
- Fall with reported unsteadiness.
- Acute chest and upper back pain
EMERGENCY TREATMENTS ADMINISTERED
A dose of Percocet (acetaminophen/oxycodone) was administered for pain management.
REASSESSMENT
The patients imaging (CT of the head, facial, and chest) results showed no acute injury upon reassessment. She remained well-appearing and non-toxic. Blood work did not reveal any significant abnormalities. The patient and her family felt
comfortable with discharge.
PLAN
1. Monitor the patient for continued stability.
2. Ensure safe ambulation post-fall.
3. Advise the patient on home care and pain management upon discharge.
4. Provide return precautions information.
5. Arrange follow-up with primary care provider for ongoing management.
INDEPENDENT REVIEW OF LABS AND INTERPRETATION OF TESTS
- My independent review of blood work revealed no significant abnormalities.
- My independent interpretation of the CT scans (head, facial, and chest) indicated no acute injuries.
PATIENT EDUCATION AND COUNSELING
The patient was informed about the significance of monitoring her pain and seeking immediate medical attention should symptoms worsen. Return precautions and follow-up arrangements with primary care were discussed.
FOLLOW-UP INSTRUCTIONS
The patient should follow up with her primary care provider to ensure continuity of care and reassessment if symptoms persist or worsen.
MEDICATION RECONCILIATION
- Percocet (acetaminophen and oxycodone) was administered in the emergency department for pain management.
MEDICAL DECISION MAKING
- Number and Complexity of Problems Addressed: Chronic conditions affecting care include chronic back pain. The differential diagnosis includes orthostatic hypotension, syncope, benign paroxysmal positional vertigo, vestibular dysfunction, anemia,
dehydration, hypoglycemia, osteoporotic fracture, cardiac arrhythmia, stroke, or transient ischemic attack.
- Data:
Category 1: CT scans of head, facial, and chest were ordered and independently interpreted, revealing no acute injury. Blood work reviewed, showing no significant abnormalities.
Category 2: Clinical information corroborated by the patients family.
-Risk: Consideration of Admission/Observation: Escalation of care including admission/observation was considered given the complexity and risk of the patients presenting complaint, exam findings, and her underlying comorbidities. However, ultimately
I feel the patient is safe for outpatient management with close follow up. Reasoning: Work-up reassuring, does not reveal any acute life/organ-threatening processes, patients symptoms well controlled upon reevaluation, reexamination is reassuring,
vitals are stable, patient agreeable with discharge, reliable for follow-up.
DIAGNOSIS
- Unspecified fall (ICD-10: W19)
- Chest pain, unspecified (ICD-10: R07.9)
- Chronic back pain (ICD-10: M54.5)
*Pulse Oximetry
SaO2: 95
Oxygen Mode of Delivery: Room air
Patient hypoxic: no
*Critical Care Note
Total Time (30-74mins, 75-104mins- exclusive of procedures): Not Applicable
ED Attending Note
-
Portions of this chart may have been created with voice recognition software.� Occasional wrong word or��sound alike� substitutions may have occurred due to the inherent limitations of voice recognition software.
Discharge Plan
Departure
Patient Disposition: Home (Routine Discharge)
Date of Disposition: 12/22/24
Time of Disposition: 00:06
Patient with high blood pressure during this ER visit?: No
Discharge Problem:
Abrasion of face
Instructions: Head Injury in Adults (DC)
Prescriptions:
No Action
paroxetine HCl 10 MG tablet
10 mg PO DAILY
alprazolam 0.5 MG tablet
0.5 mg PO HSPRN PRN (Reason: anxiety/sleep)
acetaminophen-codeine 300-30 mg Tablet
1 tab PO Q6HPRN PRN (Reason: severe pain)
rosuvastatin 5 mg Tablet
5 mg PO HS
levothyroxine [Synthroid] 75 mcg Tablet
75 mcg PO DAILY
docusate sodium [Colace] 100 mg Capsule
100 mg PO DAILYPRN PRN (Reason: constipation)
pantoprazole 40 mg tablet,delayed release (DR/EC)
40 mg PO BID 56 Days Qty: 112 0RF
Referrals:
Natasha George NP [Family Provider, Internal Medicine]
Activity Restrictions/Additional Instructions:
Please return for any worsening symptoms.
You may return at any time if you have further concerns.
Please follow up with your doctor at the first available appointment, preferably this week.
Thank you for choosing [facility].
Interventions
Interventions:
*Risk Screen - Suicide Last Done: 12/21/24 20:56
*General Assessment Last Done: 12/21/24 21:44
*Neglect/Abuse Screening Last Done: 12/21/24 20:56
*ED- Fall Risk Assessment Last Done: 12/21/24 21:44
*ED COVID-19 Vaccine History Last Done: 12/21/24 21:44
ED-Musculoskeletal Assessment Last Done: 12/21/24 21:44
ED- Neurological Assessment Last Done: 12/21/24 21:44
ED-Skin Assessment Last Done: 12/21/24 21:44
Discharge Date and Time
Print Language: LITHUANIAN
[2024-12-21] MEDS: PERCOCET 5/325 1 TABLET PO (22:55)
[2024-12-21 23:44] LABS: Hematocrit 37.5 % (37.0-47.0); Hemoglobin 12.9 g/dL (12.0-16.0); Mean Corp Hgb Conc. 34.4 g/dL (33.0-37.0); Mean Corpuscular Volume 94.0 fL (81.0-99.0); Nucleated Red Blood Cells % 0 %; Platelet Count 277 10^3/uL (130-400); Red Cell Dist. Width 13.4 % (11.5-14.5)
[2024-12-21 23:55] LABS: ALT (SGPT) 19 U/L (0-35); AST (SGOT) 39 U/L (14-36); Albumin 4.4 g/dl (3.5-5.0); Alkaline Phosphatase 48 U/L (38-126); Blood Urea Nitrogen 14 mg/dl (7-17); Calcium 9.2 mg/dl (8.4-10.2); Carbon Dioxide 22 mmol/L (22-30); Chloride 103 mmol/L (98-107); Estimated Creatinine Clearance 40 ml/min; Glucose 89 mg/dl (70-99); Potassium 4.6 mmol/L (3.5-5.1); Sodium 133 mmol/L (135-145); Total Protein 7.7 g/dl (6.3-8.2); eGFR > 60.00
[2024-12-22] VITALS: BP 108/62
[2024-12-22] MEDS: PERCOCET 5/325 1 TABLET PO (00:07)
== END 2024-12-22 00:24 | disposition home or self-care (01) ==
LOC: EMR 20:51
PROVIDERS: EMERGENCY PHYSICIAN Student in an Organized Health Care Education/Training Program; FAMILY PHYSICIAN Internal Medicine
DX: S00.81XA Abrasion of other part of head, initial encounter (principal); W19.XXXA Unspecified fall, initial encounter; Y93.K1 Activity, walking an animal; E78.00 Pure hypercholesterolemia, unspecified; E03.9 Hypothyroidism, unspecified; F17.200 Nicotine dependence, unspecified, uncomplicated; Z90.49 Acquired absence of other specified parts of digestive tract; Z90.710 Acquired absence of both cervix and uterus
CPT/HCPCS: 99284; 70450; 70486; 71250; 80053; 85025; 93005

== ENCOUNTER 2024-12-29 06:28 | Inpatient (IN) | payer MEDICARE, SELFPAY ==
[2024-12-28] VITALS (7 sets, daily range): BP systolic 104–135; BP diastolic 59–78; BMI 20.9
[2024-12-28 16:41] LABS: Hematocrit 36.2 % (37.0-47.0); Hemoglobin 12.5 g/dL (12.0-16.0); Mean Corp Hgb Conc. 34.5 g/dL (33.0-37.0); Mean Corpuscular Volume 92.3 fL (81.0-99.0); Nucleated Red Blood Cells % 0 %; Platelet Count 256 10^3/uL (130-400); Red Cell Dist. Width 13.4 % (11.5-14.5)
[2024-12-28 16:46] LABS: INR 0.97; PT 13.2 Sec (11.4-14.6)
[2024-12-28 17:00] LABS: Troponin I 0.027 ng/ml
[2024-12-28 17:05] LABS: ALT (SGPT) 28 U/L (0-35); AST (SGOT) 61 U/L (14-36); Albumin 4.7 g/dl (3.5-5.0); Alkaline Phosphatase 60 U/L (38-126); Blood Urea Nitrogen 20 mg/dl (7-17); Calcium 8.6 mg/dl (8.4-10.2); Carbon Dioxide 13 mmol/L (22-30); Chloride 99 mmol/L (98-107); Glucose 67 mg/dl (70-99); Potassium 5.3 mmol/L (3.5-5.1); Sodium 132 mmol/L (135-145); Total Protein 7.8 g/dl (6.3-8.2); eGFR > 60.00
[2024-12-28 22:58] LABS: ALT (SGPT) 29 U/L (0-35); AST (SGOT) 55 U/L (14-36); Albumin 4.7 g/dl (3.5-5.0); Alkaline Phosphatase 61 U/L (38-126); Blood Urea Nitrogen 28 mg/dl (7-17); Calcium 9.1 mg/dl (8.4-10.2); Carbon Dioxide 14 mmol/L (22-30); Chloride 99 mmol/L (98-107); Estimated Creatinine Clearance 37 ml/min; Glucose 138 mg/dl (70-99); Lipase 367 U/L (23-300); Potassium 4.9 mmol/L (3.5-5.1); Sodium 131 mmol/L (135-145); Total Protein 8.0 g/dl (6.3-8.2); eGFR > 60.00
[2024-12-28 23:08] LABS: Troponin I 0.029 ng/ml
[2024-12-28] MEDS: NSS 1000 IV (23:34)
[2024-12-28] MEDS: ZOFRAN 4 MG IV (23:36)
[2024-12-28] MEDS: MORPHINE SULFATE 2 MG IV (23:39)
[2024-12-29] VITALS (17 sets, daily range): BP systolic 127–148; BP diastolic 58–85; PULSE 75–76; O2SAT 96; BMI 19.7; BMI 16.7
--- NOTE | 2024-12-29 02:31 | EDRN ---
Addendum entered by Alize Denson RN 12/29/24 02:50:
DAUGHTER IN LAW JENA CELL PHONE # [phone]
Original Note:
pts daughter in law Jena is in [place] but is requesting a call from daytime hospitalist with patient plan of care update
[2024-12-29] MEDS: ATIVAN 0.5 MG PO ×2 (02:48→06:06)
--- NOTE | 2024-12-29 03:35 | ED.GENMED ---
History of Present Illness
General
Chief Complaint: Chest Pain
Source: patient and family ([id number])
Exam Limitations: none
Time Seen by Provider: 12/28/24 22:22
Nursing documentation reviewed up to this point in time: agreed with
History of Present Illness
History of Present Illness:
Note:
CHIEF COMPLAINT(S)
Chest pain and bruising following a fall.
HISTORY OF PRESENT ILLNESS
The patient is an 84-year-old female who presented with chest pain and bruising above the left eye following a fall approximately five days ago. The patient reported that she fell flat, which resulted in the initial contusion. Despite prior
evaluation, where chest examination reportedly showed no acute issues, the patient continues to experience chest pain, notably with movement. She acknowledged visible bruising and mentioned that, given her age, she bruises easily. The patient has
been managing discomfort with Tylenol Extra Strength, having avoided ibuprofen (Motrin) due to a prior bleeding ulcer diagnosed in May. She also disclosed consuming alcohol, approximately three to four drinks per day, which is more than usual
for her, mainly for discomfort relief and insomnia. Cardiac enzyme tests were performed, revealing values slightly higher than optimal but within normal limits. A repeat of these tests is planned. The patient expressed concern about nausea due to
fasting, awaiting diagnostic evaluations.
PAST MEDICAL AND SURIGICAL HISTORY
History of a bleeding ulcer in May.
EXTERNAL RECORDS REVIEWED
Previous cardiac enzyme test: Initial troponin level was 0.027 ng/mL, noted to be within normal limits but concerning enough to warrant a repeat test to monitor for potential cardiac issues.
SOCIAL DETERMINANTS AFFECTING HEALTH
Increased alcohol consumption for pain relief and to improve sleep, disclosed as three to four drinks daily, more than her usual intake.
REVIEW OF SYSTEMS
- General: Denies new injuries or symptoms apart from chest pain since the fall.
- Gastrointestinal: Denies abdominal pain.
- Respiratory: Denies difficulty breathing.
- Neurological: Denies headaches.
- Musculoskeletal: Reports chest pain upon movement, especially when attempting to rise.
- Psychiatric: Reports insomnia related to discomfort.
PHYSICAL EXAM
General: Alert, no acute distress.
Skin: Bruising above the left eye, likely residual from the fall. Warm, dry.
Head: Normocephalic, atraumatic.
Neck: Supple, trachea midline.
Eyes, Ears, Nose, Mouth, and Throat: Oral mucosa moist.
Cardiovascular: Normal peripheral perfusion, No edema.
Respiratory: Respirations are non-labored.
Gastrointestinal: Abdomen nondistended, denies significant pain on palpation.
Back: Normal range of motion, Normal alignment.
Musculoskeletal: Normal ROM, except for chest pain when moving.
Neurological: Alert and oriented to person, place, time, and situation, No focal neurological deficit observed.
Psychiatric: Cooperative, mood suggests discomfort related to pain and insomnia.
PROBLEM LIST
Acute: Chest pain post-fall, Bruising above the left eye, Increased alcohol consumption.
Chronic: History of bleeding ulcer, Insomnia.
PLAN
1. Obtain repeat cardiac enzyme test to assess potential cardiac risk.
2. Order a chest x-ray to ensure no missed injury from the fall.
3. Administer crackers for nausea management due to fasting.
4. Continue monitoring and potentially consult with a methods specialist based on results.
5. Discuss potentially reducing alcohol intake and consider alternative sleep aids if discomfort persists.
DIFFERENTIAL DIAGNOSIS
The Differential Diagnosis includes, in no particular order and is not limited to:
1. Musculoskeletal chest pain due to trauma.
2. Cardiac contusion.
3. Acute coronary syndrome.
4. Costochondritis.
5. Gastroesophageal reflux disease (GERD) exacerbating chest pain.
6. Pneumothorax or other chest wall injury.
7. Pulmonary embolism.
8. Rib fracture.
9. Pleural effusion.
10. Anxiety-related chest pain.
CARE-UPDATE
12/28/24 - 23:13
Reviewed chest X-ray findings indicate no acute cardiopulmonary process and symmetrically hyperinflated lungs. Evidence of chronic reticular interstitial densities compatible with fibrosis at both lung bases noted. No focal consolidation, pleural
effusion, or pneumothorax observed. Chronic right rib fracture deformities are present. Findings are consistent with the comparison to the chest CT from 12-21-2024.
CARE-UPDATE
12/28/24 - 23:17
The cardiac enzyme level has increased slightly, while the x-ray and other labs appear normal. Plan to monitor the enzyme by retesting at 5 a.m. If the level rises, the patient will be admitted; if stable or decreased, discharge with cardiology
follow-up is possible. The hemoglobin and hematocrit levels are fine, and the patients vitals also look good. The patient reported dark stool, similar to before a previous bleed. A fecal test has been ordered to check for potential bleeding. The
patient has been cleared to eat and opted for a turkey sandwich.
CARE-UPDATE
12/29/24 - 03:30
Patient is hemoccult positive with melena observed during the rectal examination. Further evaluation for gastrointestinal bleeding is indicated.
CARE-UPDATE
12/29/24 - 03:35
The patient has completed the blood consent process, and all inquiries were addressed. Protonics has been ordered for treatment. Current laboratory results indicate a normal hemoglobin level, thus no blood products are required at this time.
Disposition:
SUMMARY OF ENCOUNTER
An 84-year-old female presented to the emergency department with chest pain following a fall five days ago. The pain is exacerbated by movement. The patient reports increased alcohol consumption to manage the pain and presents with nausea and
weakness. A hemoccult test during rectal examination was positive, suggestive of gastrointestinal bleeding. Troponin levels were within the normal range but at the high end.
DISPOSITION
Admit
ASSESSMENT
The patient is being assessed for chest pain post-fall, gastrointestinal bleeding, weakness, and possible alcohol withdrawal.
INDEPENDENT REVIEW OF LABS AND INTERPRETATION OF TESTS
My independent review of the cardiac enzyme test indicates the troponin level was within the normal range but at the higher end. My independent review of the hemoccult test is positive, suggestive of gastrointestinal bleeding.
MEDICAL DECISION MAKING
-Complexity of Data Reviewed: Chronic conditions affecting care (history of bleeding ulcer, insomnia). Differential Diagnosis includes musculoskeletal chest pain due to trauma, cardiac contusion, acute coronary syndrome, costochondritis, GERD
exacerbating chest pain, pneumothorax, pulmonary embolism, rib fracture, pleural effusion, anxiety-related chest pain.
-Data:
Category 1: Clinical information was obtained from external records reviewed, including previous cardiac enzyme tests.
Category 2: No additional independent historian was indicated.
Category 3: Discussion with the admitting team regarding management for GI bleed, chest pain, and potential alcohol withdrawal.
-Risk: Decisions regarding diagnostic testing were made, given the complexity and risk associated with the patients symptomatic presentation. The patient is being admitted for further evaluation and management due to the risk of complications from
an active GI bleed and possible alcohol withdrawal symptoms.
DIAGNOSIS
- Fall-related chest pain (ICD-10: R07.89)
- Positive hemoccult, suggestive of gastrointestinal bleed (ICD-10: K92.1)
- Alcohol use, possible withdrawal (ICD-10: F10.239)
Past History
Past History
ED Past Medical History: Hypercholesterolemia, Hypothyroidism and Other (Hypothyroidism, previous fractured ribs on the right posterior)
ED Past Surgical History: Appendectomy, , Gynecological (Hysterectomy) and Other (Thyroidectomy)
Social History
Tobacco: Smoker
Alcohol: None
Living: with family
Family History
Family History: Negative Diabetes, Early CAD or CAD
Phy Exam
Physical Exam
Physical Exam:
.
Scores
GI Bleed
History of cardiac failure?: No
History of hepatic failure?: No
History of recent syncope?: No
Pulse >100?: No
SBP <110?: No
Hgb <13 (male) <12 (female)?: No
BUN >18mg/dL?: Yes
Melena present?: Yes
Recommendation: Pt has higher risk for needing a medical intervention. Inpatient admission recommended.
Heart Score for Chest Pain Patients
STEMI patient?: No
History: Slightly or Non-Suspicious
ECG: Nonspecific Repolarization
Age: >/= 65 years
Risk Factors: 1 or 2 Risk Factors
Troponin: >1 - <3 x Normal Limit
Heart Score for Chest Pain Patients: 5
Heart Score Risk: 20.3% MACE over next 6 weeks
Withdrawal Assessment of Alcohol
Withdrawal Assessment Completed?: Yes
Nausea and Vomiting: Mild nausea with no vomiting
Tactile Disturbances: None
Tremor: Not visible, but can be felt fingertip to fingertip
Auditory Disturbances: Not present
Paroxysmal Sweats: No sweat visible
Visual Disturbances: Not present
Anxiety: Mild anxiety
Headache, Fullness in Head: Not present
Agitation: Normal activity
Orientation and clouding of sensorium: Oriented and can do serial additions
Total CIWA Score: 3
Alcohol Withdrawal Medication Recommendation: Equal to MSAS Score 0-4. Monitor & re-assess q2hrs, NO MEDICATION NEEDED
Course
Orders/Labs/Results
Orders:
Orders
12/28/24 16:09
Electrocardiogram (*1) Urgent
Reason for Study: Chest Pain
EKG- Treatment ONCE
12/28/24 16:23
Complete Blood Count/With Diff Urgent
Comprehensive Metabolic Panel Urgent
Prothrombin Time Urgent
Troponin I Urgent
12/28/24 22:15
EKG [Electrocardiogram (*1)] Urgent
Reason for Study: Chest Pain
EKG- Treatment ONCE
12/28/24 22:23
CXR2 [CR Chest - 2 Views ] Urgent
Comment:
Reason For Exam: cp, recent fall
12/28/24 22:29
Comprehensive Metabolic Panel Urgent
Lipase Urgent
Troponin I Urgent
12/28/24 23:17
EKG- Treatment ONCE
12/28/24 23:18
Stool for Occult Blood Routine
12/28/24 23:22
0.9% Sodium Chloride 1000 ml [Nss] 1,000 ml IV BOLUS
Morphine Sulfate 2 mg IV NOW STA
Ondansetron Injectable [Zofran] 4 mg IV NOW STA
12/29/24 02:22
Lorazepam [Ativan] 0.5 mg PO NOW STA
12/29/24 03:00
Electrocardiogram (*1) Urgent
Reason for Study: Chest Pain
12/29/24 03:29
Troponin I Urgent
12/29/24 03:35
Pantoprazole [Protonix IV] 80 mg IV NOW STA
12/29/24 03:45
Pantoprazole 80 mg/100 ml Nss [Protonix] 80 mg in 100 ml IV Q10H
12/29/24 03:54
Type And Crossmatch [Type+Screen] Urgent
12/29/24 Breakfast
NPO
Allow oral meds: Yes
Allow clear liquids: Sips of Clears
12/29/24 06:01
Lorazepam [Ativan] 0.5 mg .ROUTE .STK-MED ONE
12/29/24 06:05
Lorazepam [Ativan] 0.5 mg PO NOW STA
12/29/24 06:10
Admit/Transfer Patient As Directed
Co-Sign Provider:
Level of Care: Inpatient admission
Assign to:: Telemetry
Physician / Group: Juan
Diagnosis: Alcohol Withdrawal, Anion Gap Acidosis, GI Bleed
Reason for Telemetry: Arrhythmia
Date to Stop Telemetry: 01/01/25
Time to Stop Telemetry: 11:00
Reason for Hospitalization: Alcohol Withdrawal, Anion Gap Acidosis, GI Bleed
Expected length of stay greater than two midnights?: Yes
ELOS- Estimated Length of Stay in days: 3
I certify the patient meets the requirements for IP care: Yes
Code Status As Directed
Resuscitation Status: Full Code
PRN Pain Medication Management As Directed
May give lesser potent ordered pain med per pt: Yes
preference::
Protocol:: Medication orders for pain may be administered in a
manner that supports deferring to patient preference
when the pt is:
- Requesting an ordered lesser potent pain medication.
Least to most potent pain medications are defined
as: acetaminophen < NSAID < tramadol < opioids
(morphine, oxycodone, hydromorphone).
- Requesting a lesser dose of the same medication IF
ORDERED.
- Requesting a less intrusive route of administration
if both routes are prescribed by the provider (PO <
IV).
12/29/24 06:16
Lactate Level [Lactic Acid] Urgent
12/29/24 10:00
Thiamine Injection 200 mg IV Q8
12/29/24 10:02
Acetaminophen [Tylenol] 650 mg PO Q4HPRN PRN
FOLic ACID [Folvite] 1 mg PO DAILY
FOLic ACID [Folvite] 1 mg 0.9% Sodium Chloride 50 ml [Nss] 50 ml IV DAILYPRN
Lorazepam [Ativan] 1 mg IV Q1HPRN PRN
Lorazepam [Ativan] 1 mg PO Q2HPRN PRN
Lorazepam [Ativan] 2 mg IV Q1HPRN PRN
Morphine Sulfate 2 mg IV Q4HPRN PRN
Ondansetron Injectable [Zofran] 4 mg IV Q6HPRN PRN
12/29/24 10:02
CARDIOLOGY CONSULT Routine
Consulting Provider: Neil Birmingham
Was physician already notified: No
Reason for consult: Chest Pain, Abnormal Troponin
Case Management Consult Once
Case Management Consult: Other
Comment: Substance abuse counseling
Consult Notification Routine
Specialty to Notify: Cardiology
Date consulting provider notified: 12/29/24
Time consulting provider notified: 10:17
Notified:: Provider
Comment: tt
Consult Notification Routine
Specialty to Notify: Gastroenterology
Date consulting provider notified: 12/29/24
Time consulting provider notified: 10:17
Notified:: Provider
Comment: tt
DIETARY IP CONSULT Routine
Reason for Consult: Nutrition support, possible refeeding guidelines
GASTROINTESTINAL CONSULT Routine
Consulting Provider: Sandeep Peoples
Was physician already notified: No
Reason for consult: Melena, GI Bleed
Activity As Directed
Activity Level: Bedrest
Bladder Scan As Directed
Follow Bladder Retention/Intermittent Cath Algorithm?: Yes
PRN if no void in __ hours: 6
Frequency: Per Retention Algorithm
If Bladder Scan Result >: 400
then:: Straight cath
EKG with chest pain [ECG as needed] As Directed
ECG as needed for:: Chest Pain
I/O [Intake/ Output] As Directed
Frequency: Per unit guidelines
MSAS SCORE As Directed
MSAS Score 0-4: Repeat MSAS every 2 hours until 0-4 for three consecutive assessments, then every 4 hours x 48
hours.
MSAS Score 5-7: For MILD withdrawl symptoms. Repeat MSAS and RASS every 2 hours
MSAS Score 8-11: For MODERATE withdrawal symptoms. Repeat MSAS and RASS every 1 hour. Consider ICU or IMU
level of care.
MSAS Score > 11: For SEVERE withdrawal symptoms. Repeat MSAS and RASS every 1 hour. Notify provider, consider
ICU level of care.
MSAS Additional Instructions: If no improvement or no decrease in score from severe to moderate within 12
hours, consult psychiatry
MSAS Notify Provider: Notify provider if patient requires more than 10 mg of Lorazepam in eight hour period.
Pneumatic Compression Sleeves As Directed
Type: Knee high
Straight Cath As Directed
Frequency: Per Retention Algorithm
Additional Instructions: straight cath as needed per acute urinary retention algorithm for 24 hrs
Additional Instructions: for bladder scan greater than 400 mL
Vital Signs As Directed
Frequency: Per unit guidelines
Weight As Directed
Frequency: Daily
Oxygen Therapy [O2 Therapy] [RESP] Routine
Titrate/Wean O2 to maintain O2 sat greater than (%): 94
DX Deep Vein Thrombosis Video Routine
12/29/24 10:14
Phenobarbital Sodium [Phenobarbital] 260 mg 0.9% Sodium Chloride 100 ml [Nss] 100 ml IV NOW
12/29/24 10:15
HH [H&H] Q6H
TSH Reflex To Free T4 Routine
Troponin I Q6H
12/29/24 10:30
Sterile Water For Inj [Sterile Water For Injection 1000 ml] 1,000 ml Sodium Bicarbonate 150 meq IV 125 mls/hr
12/29/24 16:00
Phenobarbital Sodium [Phenobarbital] 97.5 mg IV TID
12/29/24 16:13
HH [H&H] Q6H
Troponin I Q6H
12/29/24 22:02
HH [H&H] Q6H
Troponin I Q6H
12/30/24 04:02
HH [H&H] Q6H
12/30/24 06:00
EKG [Electrocardiogram (*1)] IN AM
Reason for Study: Chest Pain
Basic Metabolic Panel IN AM
Cardiovascular Evaluation IN AM
Complete Blood Count/No Diff IN AM
Magnesium IN AM
Phosphorus IN AM
12/31/24 16:00
Phenobarbital [Luminal] 64.8 mg PO TID
01/01/25 08:00
Thiamine HCl [Vitamin B1] 100 mg PO BID
01/02/25 16:00
Phenobarbital [Luminal] 32.4 mg PO TID
Abnormal Lab Results
12/28/24 12/28/24 12/29/24
16:23 22:29 03:29
RBC 3.92 L 10^6/uL
(4.20-5.40)
Hct 36.2 L %
(37.0-47.0)
MCH 31.9 H pg
(27.0-31.0)
Sodium 132 L mmol/L 131 L mmol/L
(135-145) (135-145)
Potassium 5.3 H mmol/L
(3.5-5.1)
Carbon Dioxide 13 L* mmol/L 14 L* mmol/L
(22-30) (22-30)
BUN 20 H mg/dl 28 H mg/dl
(7-17) (7-17)
Glucose 67 L mg/dl 138 H mg/dl
(70-99) (70-99)
AST 61 H U/L 55 H U/L
(14-36) (14-36)
Troponin I 0.039 H* D ng/ml
Lipase 367 H U/L
(23-300)
Antibody Screen
12/29/24
03:54
RBC
Hct
MCH
Sodium
Potassium
Carbon Dioxide
BUN
Glucose
AST
Troponin I
Lipase
Antibody Screen Positive A
(Negative)
12/28/24 16:23
12/28/24 22:29
Vital Signs
Initial and Last Documented VS:
Initial Vital Signs
Temp Pulse Resp BP Pulse Ox
97.8 F 86 17 104/59 99
12/28/24 16:11 12/28/24 16:11 12/28/24 16:11 12/28/24 16:11 12/28/24 16:11
Last Documented Vital Signs
Temp Pulse Resp BP Pulse Ox
98.5 F 76 16 134/68 95
12/29/24 15:35 12/29/24 15:35 12/29/24 15:35 12/29/24 15:35 12/29/24 15:35
*Radiology
Radiology exam reviewed: radiology read reviewed and all reviewed NAD by ED Provider
*Pulse Oximetry
SaO2: 94
Oxygen Mode of Delivery: Room air
Patient hypoxic: no
*Critical Care Note
Total Time (30-74mins, 75-104mins- exclusive of procedures): 38 (Critical care statement: A total of 38 minutes of critical care time was provided for this patient. This time is separate from time utilized to perform the aforementioned documented
procedures. Aggregate critical care time includes only time during which I was engaged in work directl)
ED Attending Note
-
Portions of this chart may have been created with voice recognition software.� Occasional wrong word or��sound alike� substitutions may have occurred due to the inherent limitations of voice recognition software.
Discharge Plan
Departure
Patient Disposition: Admit
Date of Disposition: 12/29/24
Time of Disposition: 03:35
Admit to: Telemetry
Presentation/result/management discussed w/ accepting MD/DO: Hospitalist
Discharge Problem:
GI (gastrointestinal bleed), Chest pain, Moderate alcohol consumption, Anxiety
Interventions
Interventions:
*Risk Screen - Suicide Last Done: 12/28/24 16:13
*General Assessment Last Done: 12/28/24 16:13
*Neglect/Abuse Screening Last Done: 12/28/24 16:13
*ED- Fall Risk Assessment Last Done: 12/29/24 09:45
*ED COVID-19 Vaccine History Last Done: 12/29/24 13:30
*Nursing Disposition Last Done: 12/29/24 09:45
ED- Cardiac Assessment Last Done: 12/28/24 21:06
Discharge Date and Time
Discharge Date/Time: 12/29/24 09:45
[2024-12-29] MEDS: PROTONIX IV 80 MG IV (04:01)
[2024-12-29] MEDS: PROTONIX 100 IV ×2 (04:02→13:32)
[2024-12-29 04:19] LABS: Troponin I 0.039 ng/ml
--- NOTE | 2024-12-29 07:15 | HPS.HSE ---
Family Physician
-
Family Physician: Natasha George
Chief Complaint
-
Chest Pain
History of Present Illness
Patient is an 84y F with PMH significant for pulmonary fibrosis, thyroid disease and EtOH use disorder who presents to ED complaining of left-sided chest pain. Patient states that she tripped and fell while walking her dog one week ago. She
landed on her L side - including striking her head / face on the ground. Patient was seen by her PCP following this incident and prescribed a small amount of Percocet. She states that - when this Rx was exhausted - she began to increase her
drinking in an attempt to control her pain. Patient states that she has been drinking 1/2 - 1 bottle of wine per day. Last drink was earlier this evening.
Today her chest pain remained severe despite the alcohol and patient presented to the ED for further evaluation and treatment.
At the time of my examination, patient is somewhat restless / tremulous.
Medical History
Past Medical History
Past Medical History: Reports Other
Additional Past Medical History:
hyperlipidemia
hypothyroidism
anxiety
insomnia
interstitial pulmonary disease
osteoporosis
scoliosis
pulmonary fibrosis
Past Surgical History: Reports Other
Additional Past Surgical History:
x3
hysterectomy
appendectomy
thyroidectomy
cataract extraction
hammer toe repair
Social History
Tobacco: Former Smoker (quit 12 years ago)
Alcohol: Daily (1/2 - 1 bottle of wine daily)
Drug: None
Personal:
Living: With Family
Employment: Retired
Family History
Family History: Not pertinent
Allergies / Home Medications
Allergies reflects when Allergies were last updated in [facility].
Home Medications with original date entered in [facility]
Allergy/Medication List:
Allergies
Allergy/AdvReac Type Severity Reaction Status Date / Time
No Known Allergies Allergy Verified 12/28/24 20:59
Home Medications
alprazolam 0.5 mg tablet 0.5 mg PO HSPRN PRN anxiety/sleep 09/25/21
paroxetine HCl 10 mg tablet 10 mg PO DAILY Mental Health/Anxiety 09/25/21
acetaminophen 300 mg-codeine 30 mg tablet 1 tab PO Q6HPRN PRN severe pain 05/17/24
rosuvastatin 5 mg tablet 5 mg PO HS High Cholesterol 05/17/24
docusate sodium 100 mg capsule (Colace) 100 mg PO DAILYPRN PRN constipation 05/25/24
levothyroxine 75 mcg tablet (Synthroid) 75 mcg PO DAILY Thyroid 05/25/24
pantoprazole 40 mg tablet,delayed release 40 mg PO BID Gastrointestinal issue 8 weeks #112 tabs 05/28/24
Review of Systems
-
History Source: Patient
A 12 point ROS was completed and negative except as noted: Yes
Constitutional: Reports Fatigue; Denies Fever or Chills
Respiratory: Denies Cough or Trouble Breathing
Cardiac: Reports Chest Pain; Denies Diaphoresis or Palpitations
Abdomen/GI: Reports Nausea and Black Stools; Denies Abdominal Pain, Vomiting or Bloody Stools
: Denies Dysuria, Frequency or Bleeding
Musculoskeletal: Denies Joint Pain or Edema
Neurological: Reports Headache; Denies Dizzy
Psych: Reports Anxiety; Denies Depression
Physical Exam
Vital Signs
Vital Signs
Temp Pulse Resp BP Pulse Ox
98.2 F 82 23 134/77 93
12/29/24 02:51 12/29/24 06:30 12/29/24 03:00 12/29/24 06:00 12/29/24 06:30
Physical Exam
General: Other (Frail, tremulous 84y F )
HEENT: Other (Dry MM. Neck supple.)
Respiratory: Clear; No Wheezes, Rales or Rhonchi
Cardiac: S1/S2 and Regular Rhythm; No Murmur
GI: Soft, Non Tender, Non Distended and Normal Bowel Sounds
Musculoskeletal: No Clubbing, No Cyanosis and No Edema
Neuro: AO x 3
Laboratory Results
-
12/28/24 16:23
12/28/24 22:29
Laboratory Results
PT 13.2 Sec (11.4-14.6) 12/28/24 16:23
INR 0.97 12/28/24 16:23
Lactic Acid 1.3 mmol/L (0.7-2.0) 12/29/24 06:16
Total Bilirubin 0.6 mg/dl (0.2-1.3) 12/28/24 22:29
AST 55 U/L (14-36) H 12/28/24 22:29
ALT 29 U/L (0-35) 12/28/24 22:29
Alkaline Phosphatase 61 U/L (38-126) 12/28/24 22:29
Troponin I 0.039 ng/ml H* D 12/29/24 03:29
Lipase 367 U/L (23-300) H 12/28/24 22:29
Impression/Plan
-
A/P: Patient is an 84y F with PMH significant for pulmonary fibrosis, hypothyroidism and alcohol use disorder who presents to ED for evaluation of L sided chest pain.
Alcohol Withdrawal Syndrome
Anion Gap Metabolic Acidosis / Alcoholic Ketoacidosis
- Admit for further evaluation and treatment.
- Phenobarbital taper. MSAS + BZDs as needed for symptoms of withdrawal.
- IVF support. MVI, thiamine, folate, etc.
- Follow for clinical improvement.
- Follow for improvement in labs / lytes.
Left Sided Chest Pain
- Likely traumatic chest pain from fall one week ago.
- EKG without evident ischemia.
- Troponin is trending up - continue to follow.
- Cardiology evaluation for additional recommendations.
Heme Positive Stools
- Rectal performed in ED for dark, heme positive stools.
- Hemoglobin is stable. Hemodynamically stable.
- Follow H&H for changes.
- Started on PPI infusion in the ED.
- GI evaluation for additional recommendations / possible endoscopic examination.
Pulmonary Fibrosis
- Stable. No hypoxemic, dyspnea, etc.
Hypothyroidism
- Confirm meds and resume T4 supplementation.
DVT Prophylaxis: SCDs
Code Status: Full
--- NOTE | 2024-12-29 09:15 | W.PN.HOSP.TC ---
Addendum entered and electronically signed by Daiana Khan MD 12/29/24 15:29:
I saw and evaluated the patient independently. I reviewed the resident�s note and agree with findings and plan as documented by Dr. Landin.
GENERAL: chronically ill appearing female in no apparent distress
HEENT: NC--bruise left side of forehead, cheondoism
HEART: regular rate and rhythm, +S1, +S2
LUNGS : clear to auscultation bilaterally
ABDOM: soft, nontender, nondistended, + bowel sounds
EXT: no cyanosis, clubbing, or edema
NEUROLOGIC: grossly intact
anion-gap metabolic acidosis--likely due to alcoholic ketoacidosis with withdrawal --do not believe sepsis--no source--cont MSAS, Bicarb IVF, thiamine, folic acid--trend BMP
Atypical chest pain-- Likely traumatic chest pain s/p mechanical fall 1 week ago--await cards but not likely ACS--can likely d/c trending troponin
Elevated lipase--Patient states lipase was elevated at recent outpatient labs--likely chronic from ETOH--needs to STOP--Consider US
Hyponatremia- Continue IV fluids, trend BMP
Heme Positive Stools- Rectal performed in ED for dark, heme positive stools--apprec GI--cont PPI--likely alcoholic gastritis/esophagitis
Pulmonary Fibrosis - stable
Hypothyroidism- Continue Synthroid
DVT Proph--SCDs
Code Status--Full
Original Note:
Today's Communication/Plan
-
Continue Phenobarbital taper, and BDZs PRN
Continue IVF with bicarb, MVI, thiamine, folate, etc.
Trend labs including troponin and lipase. UA ordered.
Cardiology consulted, appreciate recs.
GI consulted, appreciate recs.
Assessment / Plan
Assessment / Plan
84-year-old female with a past medical history of pulmonary fibrosis, hypothyroidism and alcohol use disorder who presented to the ED for left-sided chest pain. Patient states she had a mechanical fall approximately 1 week ago while walking her
dogs after which she developed left-sided chest pain. The pain does not radiate to any other place, and is aggravated with palpation of the chest wall. She got Percocet for the pain which provided her relief. Patient states she has been drinking
' a couple of bottles of wine' since the fall. She states she 'does not feel right' and the chest pain is still present. Last drink 12/27/24 evening.
Assessment/Plan:
# Alcoholic ketoacidosis/anion-gap metabolic acidosis
# Alcohol withdrawal syndrome
Lactate 1.3
- Phenobarbital taper, BDZs PRN
- Continue IVF with bicarb, MVI, thiamine, folate, etc.
- Monitor for clinical improvement, trend BMP
- UA ordered
# Atypical chest pain
- Likely traumatic chest pain s/p mechanical fall 1 week ago
- EKG without evident ischemia.
- Troponin 0.027, 0.029, 0.039- is trending up - continue to follow.
- Cardiology consulted, appreciate recs.
#Elevated lipase
Patient states lipase was elevated at recent outpatient labs
- Lipase 367 on 12/28/2024, trend lipase.
- Consider US if lipase does not improve with IVF
# Hyponatremia
- Continue IV fluids, trend BMP
# Heme Positive Stools
- Rectal performed in ED for dark, heme positive stools.
- Hemoglobin 12.5, trend H&H.
- Continue PPI infusion.
- GI consulted for recs and possible endoscopic examination.
# Pulmonary Fibrosis - stable
- Patient does not have shortness of breath or low oxygen saturation.
- Monitor for symptoms.
# Hypothyroidism
- Continue Synthroid 75 mcg daily
DVT Prophylaxis:� SCDs
Code Status:� Full
Anticipated Discharge: 24 - 48 hours
Subjective/Interval History
-
Date of Service: December 29, 2024
Patient endorses 'not feeling right.' She states she still has nonradiating chest pain when she palpates her chest. Last drink > 36 hours ago, she denies tremors or visual hallucinations. She states she ran out of Xanax ' a while ago' and has not
taken it before bedtime for a while.
Objective Data
-
Labs:
Laboratory Results
12/29/24 12/29/24 12/29/24
10:15 16:02 22:02
Hgb 11.4 L Pending Pending
Hct 32.6 L Pending Pending
Vital Signs:
Vital Signs
Temp Pulse Resp BP Pulse Ox
98.5 F 79 16 146/67 96
12/29/24 10:26 12/29/24 10:26 12/29/24 10:26 12/29/24 10:26 12/29/24 10:26
Review of Systems
-
History Source: Patient
Constitutional: Reports No Symptoms
EENT: Reports No Symptoms Reported
Respiratory: Reports No Symptoms
Cardiac: Reports Chest Pain
Abdomen/GI: Reports No Symptoms
Breast: Reports No Symptoms
Genitourinary: Reports No Symptoms
Neuro: Reports No Symptoms
Endocrine: Reports No Symptoms
Hematologic / Lymphatic: Reports No Symptoms
Allergy / Immunology: Reports No Symptoms
Physical Exam
-
General: Well Developed, No Apparent Distress, Comfortable, Conversant and Cachectic
HEENT: Normocephalic and Other (Left-sided periorbital ecchymosis with conjunctival injection of the left eye)
Respiratory: Clear to Auscultation
Cardiac: Regular Rhythm and S1/S2
GI: Soft, Nontender, Nondistended and Normal Bowel Sounds
Musculoskeletal: No Clubbing, No Cyanosis and No Edema
Skin: Warm and Dry
Neuro: Awake, AO x 3 and Nonfocal/Grossly Intact
Psych: Calm
Data Reviewed
-
Diagnostic Radiology: Report Reviewed by me and Discussed with Physician
Labs: Labs Reviewed by me and Discussed with Physician
Old Records: Reviewed
[2024-12-29 10:25] LABS: Hematocrit 32.6 % (37.0-47.0); Hemoglobin 11.4 g/dL (12.0-16.0)
--- NOTE | 2024-12-29 10:32 | CON.GI ---
Consultation
-
Date/Time Consultation Requested: 12/29/24 1000
Date/Time Consultation Performed: 12/29/24 1030
Requesting Provider: Magdaleno Martinez DO
Performing Provider: NITA Vegas, Sandeep Peoples MD
Reason for Consultation: melena
Medical History
Chief Complaint / HPI
Chief Complaint: Rectal bleeding
History of Present Illness:
Pt is an 83yo with hx scoliosis, Prior GI bleed in s with 6 units transfused during admission, pulm fibrosis, anxiety, ETOH use, headache, hypothyroidism, hypercholesterolemia, prior appe, , hysterectomy, thyroidectomy with admission
05/17 -05/21/24 with hematemesis. Pt was noted with anemia with hbg down to 6.2 with hypotension and tachycardia on admission. There was concern for antibodies and pt was transfused under emergency protocol. Pt was given PPI and completed EGD with
large non bleeding deep penetrating 3cm gastric ulcer with flat pigmented spot in gastric body. Hemospray was applied. Pt was given 2 units PRBC's and hbg was up to 9.2 then 8.4 on 05/21 on discharge. Pt returned 05/25 with hbg 6 with BUN 32. He
repeated EGD 05/26 with no lesions in esophagus, small HH, bilious gastric fluid, non obstructing non bleeding gastric ulcer with pigmented material with bipolar cautery and clip. He did return in July with repeat EGD with small HH, scar posterior
stomach ulcer well healed, with neg biopsy for H pylori. She was recommended cont PPI indefinitely, Strict NSAID avoidance. She now returns with chest pain with bruising above left eye with fall 1 week ago. Pt admits to diffuse pain and chest
pain since fall. She also admits to running out of pain meds and avoiding NSAID with Tylenol use and was taking ETOH to help with pain 1-2 bottles of wine daily with concern for ETOH withdrawal on admission. Pt also admits to recent dark stools
prior to admission and concern for metabolic acidosis on admission. hbg on admission 12.5 with BUN 28, Co2 14, trop up to 0.039, bili 0.6, AST 55, ALT 29, alk phos 61, lipase 367.
Pt otherwise admits to occasional diarrhea but denies dysphagia, odynophagia, GERD, nausea, vomiting, abdominal pain, constipation, blood or black in stools. Last colonoscopy 3-4 years ago in [place].
Past Medical History
Past Medical History: Hypercholesterolemia, Hypothyroidism, Psychiatric (anxiety ) and Other (rib fx, scoliosis, headaches , pulm fibrosis , ETOH use)
Past Surgical History: Appendectomy, , Gynecological (hysterectomy) and Other (thyroidectomy, cataract surgery, hammer toe surgery)
Social History
Tobacco: Former Smoker (quit 10-12 years ago)
Alcohol: Chronic Alcoholic
Drug: None
Living: With Family (son)
Employment: Retired
Family History
Family History: Other (no family hx colon ca or polyps )
Allergies / Home Medications
Allergy/AdvReac Type Severity Reaction Status Date / Time
No Known Allergies Allergy Verified 12/28/24 20:59
�Medication �Instructions �Recorded
paroxetine HCl 10 mg tablet 10 mg PO DAILY Mental 09/25/21
Health/Anxiety
rosuvastatin 5 mg tablet 5 mg PO HS High Cholesterol 05/17/24
docusate sodium 100 mg capsule 100 mg PO DAILYPRN PRN constipation 05/25/24
(Colace)
levothyroxine 75 mcg tablet 75 mcg PO DAILY Thyroid 05/25/24
(Synthroid)
acetaminophen 500 mg tablet 500 mg PO Q6HPRN PRN mild pain 12/29/24
biotin 10,000 mcg chewable tablet 10,000 mcg PO DAILY 12/29/24
(Hair, Skin and Nails (biotin))
calcium carbonate (Calcium 600) 1,800 mg PO DAILY 12/29/24
pantoprazole 40 mg tablet,delayed 40 mg PO DAILY Gastrointestinal 12/29/24
release issue
Review of Systems
-
History Source: Patient
Constitutional: Reports Weight Loss (few lbs with recent admission) and Other (eye bruising )
EENT: Reports No Symptoms
Respiratory: Reports No Symptoms
Cardiac: Reports Chest Pain (after fall)
Abdomen/GI: Reports Diarrhea and Black Stools
: Reports No Symptoms
Musculoskeletal: Reports Other (chronic pain with scoliosis )
Skin: Reports No Symptoms
Neurological: Reports Dizzy and Weakness
Endocrine: Reports No Symptoms
Hematologic/Lymphatic: Reports Bleeding
Vital Signs
Temp Pulse Resp BP Pulse Ox
98.5 F 79 16 146/67 96
12/29/24 10:26 12/29/24 10:26 12/29/24 10:26 12/29/24 10:26 12/29/24 10:26
Physical Exam
Exam
General: Other (thin elderly female )
HEENT: Normocephalic and Anicteric
Respiratory: Clear
Cardiac: Regular Rhythm
GI: Soft, Non Tender and Non Distended
Rectal: Hem Positive (black stools)
Musculoskeletal: No Clubbing and No Cyanosis
Skin: Warm and Dry
Neuro: Awake, Alert and AO x 3
Psych: Calm
Results
WBC 6.2 10^3/uL (4.8-10.8) 12/28/24 16:23
Hgb 11.4 g/dL (12.0-16.0) L 12/29/24 10:15
Hct 32.6 % (37.0-47.0) L 12/29/24 10:15
MCV 92.3 fL (81.0-99.0) 12/28/24 16:23
Plt Count 256 10^3/uL (130-400) 12/28/24 16:23
Absolute Neuts (auto) 4.1 10^3/uL (1.4-6.5) 12/28/24 16:23
PT 13.2 Sec (11.4-14.6) 12/28/24 16:23
INR 0.97 12/28/24 16:23
Sodium 131 mmol/L (135-145) L 12/28/24:
Potassium 4.9 mmol/L (3.5-5.1) 12/28/24
Chloride 99 mmol/L (98-107) 12/28/24
Carbon Dioxide 14 mmol/L (22-30) L* 12/28/24
BUN 28 mg/dl (7-17) H 12/28/24
Creatinine 0.8 mg/dL (0.6-1.0) 12/28/24
Calcium 9.1 mg/dl (8.4-10.2) 12/28/24
Total Bilirubin 0.6 mg/dl (0.2-1.3) 12/28/24
AST 55 U/L (14-36) H 12/28/24
ALT 29 U/L (0-35) 12/28/24
Alkaline Phosphatase 61 U/L (38-126) 12/28/24
Lipase 367 U/L (23-300) H 12/28/24
Diagnostic Image Results:
Prior GI Procedures:
EGD: 05/18/24 stone - Large, non-bleeding, deeply penetrating gastric
ulcer with a flat pigmented spot (Baljit Class IIc)
found in the gastric body. This was approximately 3 cm
in size. For prevention of rebleeding and additional
hemostasis, hemostatic spray was applied (Endoclot).
No bleeding during or at the end of the procedure. No
biopsies were performed given the risk of re-bleeding.
- Otherwise, normal stomach on direct and retroflexion
views
- Normal duodenum up to the third portion
- Normal esophagus.
- The examination was otherwise normal without any old
or fresh blood throughout the examined upper GI tract
- No specimens collected.
EGD: 05/26/24 salguti - No gross lesions in the entire esophagus.
- Z-line regular, 35 cm from the incisors.
- Small hiatal hernia.
- Bilious gastric fluid.
- Non-obstructing non-bleeding gastric ulcer with
pigmented material. There is no evidence of
perforation. Treated with bipolar cautery. Clip was
placed.
- Normal examined duodenum.
- No specimens collected.
EGD: 08/10/24 stone
- Normal esophagus.
- Z-line regular, 34 cm from the incisors.
- Small hiatal hernia.
- Scar in the posterior wall of the stomach along the
gastric body. The previous ulcer was well-healed. The
scar was healthy in appearance. Biopsied.
- Otherwise, normal stomach on direct and retroflexion
views. Biopsied to r/o H pylori.
- Normal examined duodenum up to the second portion.
- The examination was otherwise normal
bx mild chronic gastritis, no dysplasia, no H pylori
Colonoscopy: Last colonoscopy 3-4 years ago in [place].
Assessment / Plan
-
Pt is an 83yo with hx scoliosis, Prior GI bleed in with 6 units transfused during admission, pulm fibrosis, anxiety, ETOH use, headache, hypothyroidism, hypercholesterolemia, prior appe, , hysterectomy, thyroidectomy with admission
05/17 -05/21/24 with hematemesis. Pt was noted with anemia with hbg down to 6.2 with hypotension and tachycardia on admission. There was concern for antibodies and pt was transfused under emergency protocol. Pt was given PPI and completed EGD with
large non bleeding deep penetrating 3cm gastric ulcer with flat pigmented spot in gastric body. Hemospray was applied. Pt was given 2 units PRBC's and hbg was up to 9.2 then 8.4 on 05/21 on discharge. Pt returned 05/25 with hbg 6 with BUN 32. He
repeated EGD 05/26 with no lesions in esophagus, small HH, bilious gastric fluid, non obstructing non bleeding gastric ulcer with pigmented material with bipolar cautery and clip. He did return in July with repeat EGD with small HH, scar posterior
stomach ulcer well healed, with neg biopsy for H pylori. She was recommended cont PPI indefinitely, Strict NSAID avoidance. She now returns with chest pain with bruising above left eye with fall 1 week ago. Pt admits to diffuse pain and chest
pain since fall. She also admits to running out of pain meds and avoiding NSAID with Tylenol use and was taking ETOH to help with pain 1-2 bottles of wine daily with concern for ETOH withdrawal on admission. Pt also admits to recent dark stools
prior to admission and concern for metabolic acidosis on admission. hbg on admission 12.5 with BUN 28, Co2 14, trop up to 0.039, bili 0.6, AST 55, ALT 29, alk phos 61, lipase 367.
-melena
-recent fall with facial bruising and chest pain
-hx EGD 05/2024 with large deep penetrating 3 cm gastric ulcer with flat spot with repeat 07/2024 with healing
-ETOH abuse 1-2 bottle wine prior to admission
-mild lipase elevation on admission
-increased troponin
-metabolic acidosis
-scoliosis with chronic pain
-hyponatremia
other med problems:
-GI bleed 1959's
-headaches
-hypothyroidism
-prior appe
-
-hysterectomy
-thyroidectomy
PLAN:
Pt with recent fall with metabolic acidosis and ETOH withdrawal on admission
pt also noted with melena on exam-- PUD but has been on NSAID - ETOH gastritis vs other
trend hbg and stool records
t/c eventual EGD- sooner if signs of aggressive bleeding
ETOH abstinence
NSAID avoidance
cont PPI gtt and to be on chronic PPI daily indefinitely
for cards eval with troponin elevation
ok for sips clears
reviewedw with nursing staff
-
-
Thank you for consultation and allowing me to participate in the patient's care. Please call the project management consultant GI physician during the after hours with any questions or concerns.
[2024-12-29 10:52] LABS: Troponin I 0.031 ng/ml
[2024-12-29] MEDS: SYNTHROID 75 MCG PO (10:57)
[2024-12-29] MEDS: SODIUM BICARBONATE 1150 MEQ IV ×2 (10:57→20:28)
[2024-12-29] MEDS: THIAMINE INJECTION 200 MG IV ×2 (10:57→16:06)
[2024-12-29] MEDS: FOLVITE 1 MG PO (10:57)
[2024-12-29] MEDS: PAXIL 10 MG PO (10:57)
[2024-12-29] MEDS: PHENOBARBITAL 104 MG IV (10:58)
--- NOTE | 2024-12-29 13:00 | CON.CAR ---
Addendum entered and electronically signed by Clint Perez MD 12/29/24 16:16:
Patient seen and examined in collaboration with PGY 2 resident; agree with below.
- 84-year-old female with hyperlipidemia, GERD, anxiety, and alcohol abuse admitted with chest pain after a fall 1 week ago; has bruising to the left side of her head/face and reproducible chest pain.
- Cardiology was consulted for chest pain and minimal troponin elevation in the setting of metabolic acidosis.
- Exam: Heart regular rate and rhythm, normal S1-S2, 1/6 systolic murmur, reproducible chest pain to palpation; lungs CTA bilaterally; abdomen soft; no edema.
- A/P:
- Musculoskeletal chest pain; supportive measures.
- Minimal cardiac troponin elevation is most likely secondary to acute nonischemic myocardial injury in the setting of metabolic acidosis.
- The patient can obtain an echocardiogram as an outpatient; will defer at this time due to reproducible chest pain (echocardiogram would be painful for him to obtain as the echocardiogram probe would have to press down on her chest repeatedly for
prolonged amount of time).
- Alcohol abuse counseling recommended to help with decrease in consumption/cessation.
- No further cardiac recommendations at this time.
Original Note:
Documented by User: Reggie Rodriguez MD, Resident 12/29/24 14:25
Consultation
Consultation Request
Date/Time Consultation Requested: 12/29/24
Date/Time Consultation Performed: 12/29/24
Reason for Consultation: Chest pain and abnormal troponin levels
Medical History
-
Chief Complaint: Chest pain
History of Present Illness:
Patient is an 84-year-old female with past medical history of hypothyroidism, anxiety, GERD, hyperlipidemia, who presents with complaint of chest pain. She is a very active person and walks a mile daily, a week ago she fell on the left side of her
chest including hitting her head. She was evaluated by her primary care physician who suggested that she should use Percocet for muscular pain. After completing the course, the pain was persistent and patient started to drink alcohol to help with
the pain. She drank about half to 1 bottle of wine per day and the last drink was yesterday evening.
Today due to persistent chest pain with breathing and turning around she decided to go to the ED. Denies any nausea, vomiting, diaphoresis or syncopal episode.
She denies any previous running rigger visits or any stress test or echocardiogram. She has never noticed any exertional dyspnea, chest pain, palpitations, fluttering of chest, or syncopal episodes.
Past Medical History
Past Medical History: Hypercholesterolemia, Hypothyroidism and Other (Pulmonary fibrosis,scoliosis,ostreoprosis, gastric ulcer 2023(Nsaids))
Past Surgical History: Appendectomy, (3) and Other (cataract removal, thyroidectomy)
Social History
Tobacco: Former Smoker (Quit>10yrs ago)
Alcohol: Daily
Drug: None
Personal:
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
Family History
Family History: Reviewed & Not Pertinent and Other (Mother due to old age, had atrial fibrillation, father had CVA at 72.)
Allergies / Home Medications
Allergy/AdvReac Type Severity Reaction Status Date / Time
No Known Allergies Allergy Verified 12/28/24 20:59
�Medication �Instructions �Recorded �Confirmed �Type
paroxetine HCl 10 mg tablet 10 mg PO DAILY Mental 09/25/21 12/29/24 History
Health/Anxiety
rosuvastatin 5 mg tablet 5 mg PO HS High Cholesterol 05/17/24 12/29/24 History
docusate sodium 100 mg capsule 100 mg PO DAILYPRN PRN constipation 05/25/24 12/29/24 History
(Colace)
levothyroxine 75 mcg tablet 75 mcg PO DAILY Thyroid 05/25/24 12/29/24 History
(Synthroid)
acetaminophen 500 mg tablet 500 mg PO Q6HPRN PRN mild pain 12/29/24 12/29/24 History
biotin 10,000 mcg chewable tablet 10,000 mcg PO DAILY 12/29/24 12/29/24 History
(Hair, Skin and Nails (biotin))
calcium carbonate (Calcium 600) 1,800 mg PO DAILY 12/29/24 12/29/24 History
pantoprazole 40 mg tablet,delayed 40 mg PO DAILY Gastrointestinal 12/29/24 12/29/24 History
release issue
Review of Systems
-
All other systems: Negative unless noted
Physical Exam
Vital Signs
Temp Pulse Resp BP Pulse Ox
98.5 F 79 16 146/67 96
12/29/24 10:26 12/29/24 10:26 12/29/24 10:26 12/29/24 10:26 12/29/24 10:26
Lab Results
12/28/24 22:29
Troponin I 0.031 ng/ml 12/29/24 10:15
Physical Exam
General: Other (Weak and fragile, bruises around left eye)
Respiratory: Clear; Negative Wheezes, Crackles or Rhonchi
Cardiac: S1/S2 and Regular Rhythm; Negative Murmur, Peripheral Edema, Calf Tenderness or JVD
GI: Soft, Non Distended and Normal Bowel Sounds
Musculoskeletal: No Clubbing, No Cyanosis and No Edema
Skin: Warm and Dry
Neuro: Awake and AO x 3
Psych: Calm
Impression / Plan
-
Impression
Patient is a 89-year-old female, with history of pulmonary fibrosis, hypothyroidism, ethanol abuse, hyperlipidemia who presented with chest pain secondary to fall.
EKG shows no acute ischemic changes
Troponin 0.039
Anion gap metabolic acidosis most likely secondary to alcohol intake
Lipase levels borderline elevated
Liver enzymes fairly normal except AST 55
Normal lactic acid
Assessment/plan
#Atypical chest pain
Atypical chest pain reproducible, with chest pressing-most likely musculoskeletal in origin
Not cardiac in origin
Supportive measures including warm compresses
Optimize Pain control
#Mildly elevated troponin levels
Mildly elevated troponin levels a week after the fall
Presented with AGMA in setting of alcohol intake
Would recommend an echocardiogram on outpatient basis
#Alcohol withdrawal syndrome
Last drink yesterday evening
On phenobarbital taper. MSAS plus benzodiazepines
Defer management to primary team
#Heme positive stools
PPI infusion started in ED
GI following
#Hypothyroidism
TSH 4.41
On levothyroxine

Documented by User: Clint Perez MD 12/29/24 16:11
Consultation
Consultation Request
Requesting Provider: Dr. Martinez
Performing Provider: Dr. Perez
Impression / Plan
-
Impression
Patient is a 89-year-old female, with history of pulmonary fibrosis, hypothyroidism, ethanol abuse, hyperlipidemia who presented with chest pain secondary to fall.
EKG shows no acute ischemic changes
Troponin 0.039
Anion gap metabolic acidosis most likely secondary to alcohol intake
Lipase levels borderline elevated
Liver enzymes fairly normal except AST 55
Normal lactic acid
Assessment/plan
#Atypical chest pain
Atypical chest pain reproducible, with chest pressing-most likely musculoskeletal in origin
Not cardiac in origin
Supportive measures including warm compresses
Optimize Pain control
#Mildly elevated troponin levels
Mildly elevated troponin levels a week after the fall
Presented with AGMA in setting of alcohol intake
Would recommend an echocardiogram on outpatient basis
#Alcohol withdrawal syndrome
Last drink yesterday evening
On phenobarbital taper. MSAS plus benzodiazepines
Defer management to primary team
#Heme positive stools
PPI infusion started in ED
GI following
#Hypothyroidism
TSH 4.41
On levothyroxine
Data Reviewed
-
EKG: Tracing Personally Visualized and interpreted (Sinus rhythm)
Medical Tests (Nuc Med, Echo etc): Discussed with Physician and Discussed with Patient
Labs: Labs Reviewed by me
[2024-12-29] MEDS: PHENOBARBITAL 97.5 MG IV ×2 (16:03→22:00)
[2024-12-29 16:20] LABS: Hematocrit 29.8 % (37.0-47.0); Hemoglobin 10.4 g/dL (12.0-16.0)
--- NOTE | 2024-12-29 16:40 | CM ---
Patient seen at bedside at with physician in ED. Patient states that she lives with her son in [facility]. A one story home with 2 steps to enter. Patient PCP is from [facility] and uses the [facility] pharmacy. Patient has no VN or SNF needs in
the past. Patient is willing to talk with [facility] when available. CM will continue to follow for discharge planning needs.
Plan; home with VN vs home with no needs.
[2024-12-29 16:42] LABS: Troponin I 0.024 ng/ml
--- NOTE | 2024-12-29 18:12 | PTCARENOTE ---
Received patient from ER at 10:30 am AAOx3. Pt oriented to room. Pt with Protonix Drip infusing without difficulty. Pt MSAS-0. Pt started on Phenobarbital Load an then taper. Pt remained NPO. Pt tolerated sips of clears as ordered. IVF started. Pt
offered no complaints. Made pt comfortable. Cont to assess patient status.
[2024-12-29] MEDS: NSS (PRESERVATIVE FREE) 10 ML IV (20:29)
[2024-12-29] MEDS: PROTONIX IV 40 MG IV (20:29)
[2024-12-29] MEDS: ATIVAN 1 MG PO (20:40)
[2024-12-29 20:55] LABS: Urine Character Clear (Clear)
[2024-12-29 21:03] LABS: Urine Red Blood Cell 0-2 /HPF (0-2)
[2024-12-29] MEDS: CRESTOR 5 MG PO (22:00)
[2024-12-29 22:25] LABS: Hematocrit 28.0 % (37.0-47.0); Hemoglobin 10.0 g/dL (12.0-16.0)
[2024-12-29 22:51] LABS: Troponin I 0.026 ng/ml
[2024-12-30] VITALS (10 sets, daily range): BP systolic 105–146; BP diastolic 43–73
[2024-12-30] MEDS: THIAMINE INJECTION 200 MG IV ×4 (00:31→23:57)
[2024-12-30] MEDS: SYNTHROID 75 MCG PO (06:00)
[2024-12-30] MEDS: MORPHINE SULFATE 2 MG IV (06:08)
[2024-12-30] MEDS: SODIUM BICARBONATE 1150 MEQ IV (06:35)
[2024-12-30 08:21] LABS: Hematocrit 24.7 % (37.0-47.0); Hemoglobin 8.7 g/dL (12.0-16.0)
[2024-12-30 08:34] LABS: Hematocrit 24.4 % (37.0-47.0); Hemoglobin 8.6 g/dL (12.0-16.0); Mean Corp Hgb Conc. 35.2 g/dL (33.0-37.0); Mean Corpuscular Volume 93.1 fL (81.0-99.0); Platelet Count 155 10^3/uL (130-400); Red Cell Dist. Width 13.2 % (11.5-14.5)
[2024-12-30 09:09] LABS: Blood Urea Nitrogen 15 mg/dl (7-17); Calcium 5.5 mg/dl (8.4-10.2); Chloride 74 mmol/L (98-107); Estimated Creatinine Clearance 50 ml/min; Glucose 65 mg/dl (70-99); HDL Cholesterol 84 mg/dl; LDL Cholesterol, Calculated 36 mg/dl; Magnesium 1.6 mg/dl (1.6-2.3); Potassium 2.9 mmol/L (3.5-5.1); Sodium 125 mmol/L (135-145); Very Low Density Lipoprotein 10 mg/dl (0-30); eGFR > 60.00
[2024-12-30] MEDS: NSS (PRESERVATIVE FREE) 10 ML IV ×2 (09:20→19:51)
[2024-12-30] MEDS: OSCAL CAL 500 1500 MG PO (09:21)
[2024-12-30] MEDS: PROTONIX IV 40 MG IV ×2 (09:21→19:51)
[2024-12-30] MEDS: FOLVITE 1 MG PO (09:22)
[2024-12-30] MEDS: PHENOBARBITAL 97.5 MG IV ×3 (09:24→21:17)
[2024-12-30] MEDS: PAXIL 10 MG PO (09:24)
[2024-12-30 09:47] LABS: Carbon Dioxide 50 mmol/L (22-30); Lipase 292 U/L (23-300)
[2024-12-30 10:07] LABS: Glucose - Point of Care 86 mg/dl (70-99)
[2024-12-30 10:50] LABS: Hematocrit 30.7 % (37.0-47.0); Hemoglobin 10.7 g/dL (12.0-16.0); Mean Corp Hgb Conc. 34.9 g/dL (33.0-37.0); Mean Corpuscular Volume 93.9 fL (81.0-99.0); Platelet Count 186 10^3/uL (130-400); Red Cell Dist. Width 13.2 % (11.5-14.5)
[2024-12-30 11:07] LABS: Blood Urea Nitrogen 16 mg/dl (7-17); Calcium 7.3 mg/dl (8.4-10.2); Carbon Dioxide 35 mmol/L (22-30); Chloride 88 mmol/L (98-107); Estimated Creatinine Clearance 50 ml/min; Glucose 86 mg/dl (70-99); Magnesium 1.9 mg/dl (1.6-2.3); Potassium 3.3 mmol/L (3.5-5.1); Sodium 128 mmol/L (135-145); eGFR > 60.00
--- NOTE | 2024-12-30 11:12 | W.PN.HOSP.TC ---
Addendum entered and electronically signed by Daiana Khan MD 12/30/24 15:49:
I saw and evaluated the patient independently. I reviewed the resident�s note and agree with findings and plan as documented by Dr. Landin.
GENERAL: chronically ill appearing female in no apparent distress
HEENT: NC--bruise left side of forehead, baptism
HEART: regular rate and rhythm, +S1, +S2
LUNGS : clear to auscultation bilaterally
ABDOM: soft, nontender, nondistended, + bowel sounds
EXT: no cyanosis, clubbing, or edema
NEUROLOGIC: grossly intact
anion-gap metabolic acidosis--likely due to alcoholic ketoacidosis with withdrawal --do not believe sepsis--no source--cont MSAS, stop Bicarb IVF (resolved), thiamine, folic acid--trend BMP
Atypical chest pain-- Likely traumatic chest pain s/p mechanical fall 1 week ago--await cards but not likely ACS--can likely d/c trending troponin--would prefer NOT to give narcotics--can try low dose tramadol
Elevated lipase--Patient states lipase was elevated at recent outpatient labs--likely chronic from ETOH--needs to STOP
Hyponatremia- stop IVF-- trend BMP
Heme Positive Stools- Rectal performed in ED for dark, heme positive stools--apprec GI--cont PPI--likely alcoholic gastritis/esophagitis--EGD with gastritis and duodenitis--MUST ABSTAIN from ETOH--PPI BID
Pulmonary Fibrosis - stable
Hypothyroidism- Continue Synthroid
DVT Proph--SCDs
Code Status--Full
d/c planning
Original Note:
Today's Communication/Plan
-
EGD today, GI following.
Discontinue morphine
Cardiology following, recommend warm compresses, outpatient echo
Continue PPI gtt
Assessment / Plan
Assessment / Plan
84-year-old female with a past medical history of pulmonary fibrosis, hypothyroidism and alcohol use disorder who presented to the ED for left-sided chest pain. Patient states she had a mechanical fall approximately 1 week ago while walking her
dogs after which she developed left-sided chest pain. The pain does not radiate to any other place, and is aggravated with palpation of the chest wall. She got Percocet for the pain which provided her relief. Patient states she has been drinking
' a couple of bottles of wine' since the fall. She states she 'does not feel right' and the chest pain is still present. Last drink 12/27/24 evening.
Assessment/Plan:
# Alcoholic ketoacidosis/anion-gap metabolic acidosis
# Alcohol withdrawal syndrome
Lactate 1.3 on admission
UA showed 3+ urine ketones
- Phenobarbital taper. MSAS + BZDs PRN
- Continue IVF with bicarb, MVI, thiamine, folate, etc.
- Monitor for clinical improvement, trend BMP
�
# Atypical chest pain
- Likely traumatic chest pain s/p mechanical fall 1 week ago
- EKG without evident ischemia.
- Cardiology consulted, minimal cardiac troponin elevation likely due to acute nonischemic myocardial injury in the setting of metabolic acidosis. Recommend warm compresses, Echo outpatient.
- Morphine discontinued.
- Recommend alcohol abuse counseling.
#Elevated lipase
Patient states lipase was elevated at recent outpatient labs
- Lipase 367 on 12/28/2024, 292 this morning 12/30/24.
- Trending lipase. Possible US if doesn�t improve.
# Hyponatremia
- Continue IV fluids, trend BMP
# Heme Positive Stools
- Rectal performed in ED for dark, heme positive stools.
- Hemoglobin 10.7, trend H&H.
- Continue PPI infusion.
- GI consulted: EGD today. NSAID avoidance, continue PPI gtt and to be on chronic PPI daily indefinitely.�
# Pulmonary Fibrosis - stable
- Patient does not have shortness of breath or low oxygen saturation.�
- Monitor for symptoms.
# Hypothyroidism
- Continue Synthroid 75 mcg daily
DVT Prophylaxis:� SCDs
Code Status:� Full
Anticipated Discharge: 24 - 48 hours
Subjective/Interval History
-
Date of Service: December 30, 2024
Patient endorses chest pain even after receiving morphine at 6 AM this morning, requesting more pain killers. No other complaints.
Objective Data
-
Labs:
Laboratory Results
12/30/24 12/30/24 12/30/24
07:42 07:42 07:42
WBC 4.3 L
Hgb 8.7 L 8.6 L
Hct 24.7 L 24.4 L
Plt Count 155 D
Sodium 125 L
Potassium 2.9 L D
Chloride 74 L
Carbon Dioxide 50 H
BUN 15
Creatinine 0.5 L
Glucose 65 L
Calcium 5.5 L* D
12/30/24
10:20
WBC 4.6 L
Hgb 10.7 L D
Hct 30.7 L
Plt Count 186
Sodium 128 L
Potassium 3.3 L
Chloride 88 L
Carbon Dioxide 35 H
BUN 16
Creatinine 0.6
Glucose 86
Calcium 7.3 L D
Vital Signs:
Vital Signs
Temp Pulse Resp BP Pulse Ox
98.3 F 73 16 115/58 91
12/30/24 07:20 12/30/24 07:20 12/30/24 07:20 12/30/24 07:20 12/30/24 07:20
I&O
12/29/24 12/30/24 12/31/24
06:59 06:59 06:59
Intake Total 240 / 240
Output Total 150 / 150
Balance 90 / 90
Review of Systems
-
History Source: Patient
Constitutional: Reports No Symptoms
EENT: Reports No Symptoms Reported
Respiratory: Reports No Symptoms
Cardiac: Reports Chest Pain
Abdomen/GI: Reports No Symptoms
Breast: Reports No Symptoms
Genitourinary: Reports No Symptoms
Musculoskeletal: Reports No Symptoms
Neuro: Reports No Symptoms
Endocrine: Reports No Symptoms
Hematologic / Lymphatic: Reports No Symptoms
Physical Exam
-
General: Well Developed, No Apparent Distress, Comfortable and Conversant
HEENT: Normocephalic, Moist Mucous Membranes, Anicteric and Other (Left-sided periorbital ecchymosis, bruising to the lateral aspect of left eyebrow)
Respiratory: Clear to Auscultation
Cardiac: Regular Rhythm and S1/S2
GI: Soft, Nontender, Nondistended and Normal Bowel Sounds
Musculoskeletal: No Clubbing and No Cyanosis
Data Reviewed
-
Labs: Labs Reviewed by me and Discussed with Physician
Old Records: Reviewed
--- NOTE | 2024-12-30 11:25 | PTCARENOTE ---
Patient am Labs-Hgb-8.6/24.4, K-2.9, Glucose-65, Na-125. Dr. Khan and Dr. Landin made aware. Accu check done-86. Pt NPO with sips of clears and IVF Sterile Water with Sodium Bicarbonate. Labs Repeated. 10:20 [id number]-54.7/30.7, Na-128,
K-3.3, Glucose-86. Md aware of results. Made patient comfortable. Cont to assess patient status.
[2024-12-30] MEDS: MORPHINE SULFATE 1 MG IV (12:32)
--- NOTE | 2024-12-30 13:38 | PN.CDI ---
CDI
- -
CDI:
Physician Documentation Request
Admit Date: 12/29/24 06:28
Dear Doctor,
Please review the following and provide your response in the progress notes.
Clinical Indicators:
- Turret Press Operator note indicates moderate protein calorie malnutrition
- Unintentional weight loss >2% in 1 week
- Sudden poor nutrient intake prior to/during admit </= 75% for >/= 5 days
Based on the above information and your assessment, which of the following most accurately represents the patient's nutritional status?
Moderate protein calorie malnutrition
Other (please specify)
[place] Criteria ([facility] Hospitalist 2017)
2 or more criteria must be present for either
non severe or severe malnutrition
Note that the criteria differs related to the
presence of an acute or chronic illness
Acute Illness Chronic Illness
Energy Intake Non Severe: <75% for >7 days Non Severe: <75% for >1 month
Severe: <50% for >5 days Severe: <75% for >1 month
Weight Loss Non Severe: 1-2% over 1 week Non Severe: 5% over 1 month
5% over 1 month 7.5% over 3 months
7.5% over 3 months 10% over 6 months
1 year N/A 20% over 1 year
Severe: >2% over 1 week Severe: >5% over 1 month
>5% over 1 month >7.5% over 3 months
>7.5% over 3 months >10% over 6 months
1 year N/A >20% over 1 year
Body Fat Non Severe: Mild Decrease Non Severe: Mild Loss
Severe: Moderate Decrease Severe: Severe Loss
Muscle Mass Non Severe: Mild Decrease Non Severe: Mild Loss
Severe: Moderate Decrease Severe: Severe Loss
Fluid Accumulation Non Severe: Mild Accumulation Non Severe: Mild Accumulation
Severe: Moderate to severe Severe: Moderate to severe
accumulation accumulation
Reduced Purchasing Assistant Strength Non Severe: N/A Non Severe: N/A
Severe: Measurably reduced Severe: Measurably reduced
Additional criteria that can be used to Determine if Mild or Moderate Malnutrition ([employer] Manual 2018)
Mild Moderate Severe
Albumin gm/dl <3.0 gm/dl <2.5 gm/dl <2.0 gm/dl
Pre Albumin mg/dl <15 gm/dl <10 mg/dl <5.0 mg/dl
BMI <18.5 <17 <16
Use of terms such as suspected, likely, concern for, or probable (associated with a specific diagnosis that is being evaluated, monitored, or treated as if it exists) are acceptable and can be coded in the inpatient setting, when documented at the
time of discharge.
Thank you,
Saul Peralta RN
CDI Specialist
Please use your independent medical judgment in providing your response.
--- NOTE | 2024-12-30 14:35 | CM ---
Patient seen at bedside on with Physicians. Patient for EGD today per physician. Patient c/o pain and per PT/OT recommendation is for home health but patient is wobbly per nursing. Patient willing to talk to [facility], but doesn't feel that she
needs anything. CM called to [facility] and David to see her tomorrow am. CM will continue to follow for discharge planning needs.
Plan;home with VN vs home with no needs; [facility] to follow
--- NOTE | 2024-12-30 14:48 | W.PN.UPDATE ---
Update Note
Progress Note Update
EGD:
patchy gastritis and duodenitis without ulcer or bleeding, biopsied for Hpylori
plan:
PPI po bid
ok to eat
will f/u biopsies
no further w/u for now
will sign off
--- NOTE | 2024-12-30 15:21 | SUR.PHASEI ---
Awaiting RN from floor the return call for report.
[2024-12-30] MEDS: SODIUM BICARBONATE IV (16:00)
--- NOTE | 2024-12-30 17:22 | PTCARENOTE ---
Received patient this am AAOx3. Pt NPO with IVF infusing. Pt has complaints this am of chest pain from recent fall. Medicated with IV Morphine with relief. Pt went for EGD today. Pt returned to unit AAOx3, HRR, Lungs with diminished BS, Abdomen
+BS. Pt voided without difficulty. Pt tolerated Regular diet. IVF capped as ordered. Made patient comfortable. Cont to assess patient status.
[2024-12-30] MEDS: CRESTOR 5 MG PO (21:16)
[2024-12-30] MEDS: XANAX 0.5 MG PO (21:19)
[2024-12-31 03:56] VITALS: BP 134/63
[2024-12-31 07:45] VITALS: BP 109/64
[2024-12-31] MEDS: SYNTHROID 75 MCG PO (08:07)
[2024-12-31] MEDS: NSS (PRESERVATIVE FREE) 10 ML IV (08:07)
[2024-12-31] MEDS: PROTONIX IV 40 MG IV (08:08)
[2024-12-31] MEDS: THIAMINE INJECTION 200 MG IV ×2 (08:08→16:51)
[2024-12-31] MEDS: PHENOBARBITAL 97.5 MG IV (08:08)
[2024-12-31] MEDS: OSCAL CAL 500 1500 MG PO (08:11)
[2024-12-31] MEDS: FOLVITE 1 MG PO (08:12)
[2024-12-31] MEDS: FLUSH (NSS) 1 FLUSH IV ×2 (08:12→16:51)
[2024-12-31] MEDS: PAXIL 10 MG PO (08:12)
[2024-12-31] MEDS: LIDOCAINE 4% PATCH 1 PATCH TOPICAL (08:12)
[2024-12-31 09:14] LABS: Hematocrit 32.6 % (37.0-47.0); Hemoglobin 11.1 g/dL (12.0-16.0); Mean Corp Hgb Conc. 34.0 g/dL (33.0-37.0); Mean Corpuscular Volume 95.6 fL (81.0-99.0); Nucleated Red Blood Cells % 0 %; Platelet Count 174 10^3/uL (130-400); Red Cell Dist. Width 13.2 % (11.5-14.5)
[2024-12-31 09:26] LABS: Blood Urea Nitrogen 14 mg/dl (7-17); Calcium 8.1 mg/dl (8.4-10.2); Carbon Dioxide 35 mmol/L (22-30); Chloride 93 mmol/L (98-107); Estimated Creatinine Clearance 50 ml/min; Glucose 95 mg/dl (70-99); Magnesium 2.0 mg/dl (1.6-2.3); Potassium 3.3 mmol/L (3.5-5.1); Sodium 130 mmol/L (135-145); eGFR > 60.00
[2024-12-31 09:36] VITALS: BP 112/56; PULSE 74; O2SAT 94
[2024-12-31 11:00] VITALS: BP 116/58
--- NOTE | 2024-12-31 11:26 | W.PN.HOSP.TC ---
Addendum entered and electronically signed by Daiana Khan MD 12/31/24 18:20:
I saw and evaluated the patient independently. I reviewed the resident�s note and agree with findings and plan as documented by Dr. Landin.
GENERAL: chronically ill appearing female in no apparent distress
HEENT: NC--bruise left side of forehead, mu-ism
HEART: regular rate and rhythm, +S1, +S2
LUNGS : clear to auscultation bilaterally
ABDOM: soft, nontender, nondistended, + bowel sounds
EXT: no cyanosis, clubbing, or edema
NEUROLOGIC: grossly intact
anion-gap metabolic acidosis--likely due to alcoholic ketoacidosis with withdrawal --do not believe sepsis--no source--cont MSAS, stop Bicarb IVF (resolved), thiamine, folic acid--trend BMP
Atypical chest pain-- Likely traumatic chest pain s/p mechanical fall 1 week ago--await cards but not likely ACS--can likely d/c trending troponin--would prefer NOT to give narcotics--lidocaine patch given
Elevated lipase--Patient states lipase was elevated at recent outpatient labs--likely chronic from ETOH--needs to STOP
Hyponatremia- stop IVF-- trend BMP
hypokalemia--replete--mag WNL
hypocalcemia (5.5)-- labs were drawn above an IV line and not true findings--repeat labs improved
Heme Positive Stools- Rectal performed in ED for dark, heme positive stools--apprec GI--cont PPI--likely alcoholic gastritis/esophagitis--EGD with gastritis and duodenitis--MUST ABSTAIN from ETOH--PPI BID
Pulmonary Fibrosis - stable
Hypothyroidism- Continue Synthroid
insomnia--apprec psych--ativan 0.25 rec by psych--gave 7 tabs only
moderate protein calorie malnutrition--apprec dietary
DVT Proph--SCDs
Code Status--Full
pt declines inpt psych--home health [facility] PT/OT--pt refusing VN
Addendum entered and electronically signed by Juan Manuel Landin MD, Resident 12/31/24 17:20:
# Hypocalcemia
- Serum calcium 5.5 on 12/30/2024.
- Calcium carbonate 1500 Mg p.o. ordered.
�Repeat calcium 8.1 today 12/31/24, trending labs.
Original Note:
Today's Communication/Plan
-
Potassium repleted.
Psych consulted, recommend alcohol cessation.
Medically cleared for discharge.
Assessment / Plan
Assessment / Plan
84-year-old female with a past medical history of pulmonary fibrosis, hypothyroidism and alcohol use disorder who presented to the ED for left-sided chest pain. Patient states she had a mechanical fall approximately 1 week ago while walking her
dogs after which she developed left-sided chest pain. The pain does not radiate to any other place, and is aggravated with palpation of the chest wall. She got Percocet for the pain which provided her relief. Patient states she has been drinking
' a couple of bottles of wine' since the fall. She states she 'does not feel right' and the chest pain is still present. Last drink 12/27/24 evening.
Assessment/Plan:
# Alcoholic ketoacidosis/anion-gap metabolic acidosis
# Alcohol withdrawal syndrome
Lactate 1.3 on admission, sepsis unlikely
UA showed 3+ urine ketones
- Patient treated with phenobarbital taper. MSAS + BZDs PRN
- Monitor for clinical improvement, trend BMP
�
# Atypical chest pain
- Likely traumatic chest pain s/p mechanical fall 1 week ago
- EKG without evident ischemia.
- Cardiology consulted, minimal cardiac troponin elevation likely due to acute nonischemic myocardial injury in the setting of metabolic acidosis. Recommend warm compresses, Echo outpatient.
- Morphine discontinued. Given lidocaine patch.
- Recommend alcohol abuse counseling.
#Elevated lipase
Patient states lipase was elevated at recent outpatient labs.
History of alcohol abuse
- Lipase 367 on 12/28/2024, 292 on 12/30/24.
- Recommend alcohol cessation.
# Hyponatremia
# Hypokalemia
- K 3.3, potassium repleted.
- Na 130, increased from 128 yesterday 12/30/24.
- Trend BMP.
# Heme Positive Stools
EGD showed patchy gastritis and duodenitis without ulcer or bleeding, biopsied for H. pylori
- Rectal performed in ED for dark, heme positive stools.
- Hemoglobin 11.1.
- Continue PPI infusion.
- GI consulted recommend NSAID avoidance, continue PPI gtt and to be on chronic PPI daily indefinitely.�
# Pulmonary Fibrosis - stable
- Patient does not have shortness of breath or low oxygen saturation.�
- Monitor for symptoms.
# Hypothyroidism
- Continue Synthroid 75 mcg daily
DVT Prophylaxis:�SCDs
Code Status:� Full
Anticipated Discharge: Today
Subjective/Interval History
-
Date of Service: December 31, 2024
Patient states she feels better, no shortness of breath or chest pain. Bowel movement yesterday without vomiting to have diarrhea. Family expresses concern of patient 'not being herself,' and possibly want a change to the paroxetine dose.
Objective Data
-
Labs:
Laboratory Results
12/31/24
08:46
WBC 5.6
Hgb 11.1 L
Hct 32.6 L
Plt Count 174
Sodium 130 L
Potassium 3.3 L
Chloride 93 L
Carbon Dioxide 35 H
BUN 14
Creatinine 0.6
Glucose 95
Calcium 8.1 L
Vital Signs:
Vital Signs
Temp Pulse Resp BP Pulse Ox
98.1 F 64 18 109/64 95
12/31/24 07:45 12/31/24 07:45 12/31/24 07:45 12/31/24 07:45 12/31/24 08:04
I&O
12/30/24 12/31/24 01/01/25
06:59 06:59 06:59
Intake Total 240 / 240 0 / 0
Output Total 150 / 150
Balance 90 / 90 0 / 0
Review of Systems
-
History Source: Patient
Constitutional: Reports No Symptoms
EENT: Reports No Symptoms Reported
Respiratory: Reports No Symptoms
Cardiac: Reports No Symptoms
Abdomen/GI: Reports No Symptoms
Breast: Reports No Symptoms
Genitourinary: Reports No Symptoms
Musculoskeletal: Reports No Symptoms
Skin: Reports No Symptoms
Neuro: Reports No Symptoms
Endocrine: Reports No Symptoms
Hematologic / Lymphatic: Reports No Symptoms
Physical Exam
-
General: Well Developed, Well Nourished, No Apparent Distress and Conversant
HEENT: Normocephalic, Moist Mucous Membranes, Anicteric and Other (Periorbital ecchymosis on the left side, improved from initial presentation.)
Respiratory: Clear to Auscultation
Cardiac: Regular Rhythm and S1/S2
GI: Soft, Nontender, Nondistended and No Hepatosplenomegaly
Musculoskeletal: No Clubbing, No Cyanosis, Edema, Right Lower Extrem and Edema, Left Lower Extrem
Neuro: Awake and AO x 3
Psych: Calm
Data Reviewed
-
Labs: Labs Reviewed by me and Discussed with Physician
Old Records: Reviewed
[2024-12-31] MEDS: KCL 40 MEQ PO (12:03)
[2024-12-31 12:57] VITALS: BMI 17.9
--- NOTE | 2024-12-31 13:11 | PN.CDI ---
CDI
- -
CDI:
Physician Documentation Request
Admit Date: 12/29/24 06:28
Dear Doctor,
Please review the following and provide your response in the progress notes.
Clinical Indicators:
- 12/30 1500 mg Calcium carbonate ordered
Laboratory Tests
12/28/24 12/28/24 12/30/24
16:23 22:29 07:42
Calcium 8.6 9.1 5.5 L* D
12/30/24 12/31/24
10:20 08:46
Calcium 7.3 L D 8.1 L
Please provide a diagnosis for the above lab values that were monitored and treatment rendered:
Hypocalcemia
Clinically insignificant abnormal lab value
Other (please specify)
Use of terms such as suspected, likely, concern for, or probable (associated with a specific diagnosis that is being evaluated, monitored, or treated as if it exists) are acceptable and can be coded in the inpatient setting, when documented at the
time of discharge.
Thank you,
Saul Peralta RN
CDI Specialist
Please use your independent medical judgment in providing your response.
--- NOTE | 2024-12-31 13:21 | CON.MD ---
Consultation - Medical
-
patient seen chart reviewed. spoke with nursing. this consult is being done today december 31 2024. 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 she was
experiencing chest pain at the time as well. in addition to chest discomfort she complained of insomnia. says she struggles to fall and stay asleep and this is very longstanding. she says over the past year her etoh intake has increased and is at
this point one half to one bottle of wine daily to fall asleep and another reason in th past few days is to relieve her discomfort from the bruising she suffered in recent fall. patient was apparently given a small supply of opiates for pain which
she ran out of. her insomnia was rx with xanax which she has taken for some years o.5 mg which does not work at this point. she asked her pcp who would not increase it. patient does not see herself as primarily depressed but she does say she has had
a lot of stress in her life including the overdose of her son which she feels was not intentional at age 42. he was an employment attorney. her about 12 yaers ago as well and she has gone back and forth from living in the [facility] area or
[place] and residing with her other son which she does at this point. that son is a fighter pilot and is at this moment in [place]. she says she can enjoy activities. she sees self as tired at times bc 'i can't sleep' she has been taking paxil 10 mg for
many years for anxiety and to deal with stress but she does not feel it was very helpful. she has never been suicidal. she does not describe inc energy dec need for sleep or racing thoughts and has never been told she is bipolar
past psych hx see above. has had paxil for some years. no hospitalizations
medical hx patient has hx of serious gi bleed this winter see chart her hgb was down around six and she required transfusion. she has continued to have gi issues. egd done this admit shows gastritis and duodenopathy. patient noted on admit to
be hyonatremic (130 Na currently) lipase elevateds heme + stools hx hypothroid tsh top nl. current hgb has been all of over the place from 8.6 to 12.5/ bun 28 ast 55 alt 29 bun 28 troponoin was sl inc patient has hx pulmonary nodule hld
hypothryoid pulmonary disease osteoporosis w path fx scoliosis gerd s/p thyroidectomy noted in chart
fh two sons w addiction hx one who overdosed and one alcoholic
substance abuse see above patient seemes to minimize her etoh intake but she does admit that in the past year she has consumed etoh as above. she also admits she has been drinking more since the fall. she has been detoxed here with phenobarbitial
and msas using ativan of which she received only two doses. she had a prn of xanax for sleep which she requested once on 12/30
social patient is she resides with her son who is a fighter pilot . she has one other son. she has two grandkids. twelve years ago. born and raised in [facility]. lived in [place] for a while then came here to be w son several
times til permanent move. 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 she does have friends and enjoys drawing and gardening
mse alert ox3 frail appearing woman with a very bruised face. she was pleasant and cooperative no unusual movements noted. speech and thought process goal oriented no psychosis mood was neutral though frustrated as she spoke of not being able to
sleep. affect appropriate no si aver intelligence insight and judgment considering etoh use impaired
dx etoh use disorder unspecified adjustment disorder with anxiety
recomendation given low sodium would taper and dc paxil which can further decrease sodium and prevent resolution . i suspect with sobriety her sodium will normalize. would then suggest remeron instead of paxil which could help with anxiety and
sleep as well as dysphoria if that is an issue (she largely denies depression per se), but i would wait to add remeron (which is a bit less likely to cause hyponatremia) until sodium normalizes. . what is MOST important is that she stop drinking.
i explained to her the negative impact of etoh on her health which is clear given hx of gi bleeds etc etc. also explained the impact on sleep. if she cannot stop drinking would suggest at least an iop for her. we discussed strategies for a good
night's sleep. she says she does not consume caffeine after noon which is good. her room is cool temp and dark. suggested she google 'cognitive behavioral strategies for better sleep' which may offer some suggestions she has not tried. melatonin
taken a few hours before sleep is an option lastly consider sleep study. she said she has never been told she snores. psych will sign off.
[2024-12-31 15:00] VITALS: BP 109/58
--- NOTE | 2024-12-31 16:02 | CM ---
Patient seen at bedside in [facility] with physicians. Patient stated that she declined [facility]/ alcohol treatment and VN. Patient for discharge home with family transportation. CM will continue to follow for discharge planning needs.
Plan; home with no needs
--- NOTE | 2024-12-31 16:47 | PTCARENOTE ---
Pt AO x3, very forgetful. ALDRIDGE; OOB to chair/BR with assist x1/walker, pt unsteady w/OOB activity. Pt denies weakness/dizziness. VSS. Telemetry:NSR. On room air- pulse ox 96%, no SOB noted. Abd soft, rounded, geo PO well. Voids in BR without
difficulty. Resting in bed at present, no c/o. Will continue to monitor.
[2024-12-31] MEDS: LUMINAL 64.8 MG PO (16:51)
--- NOTE | 2024-12-31 18:29 | W.DCSUMMARY ---
Addendum entered and electronically signed by Daiana Khan MD 12/31/24 21:01:
Read, reviewed, and agree. See same day progress note for additional details. Time spent coordinating care, DC planning, review of DC plan of care with resident, transition of care, review of records in EMR, med rec, consults, notes, d/w
consultants, nursing, family, and CM = 38 minutes
Original Note:
Discharge Summary
Discharge Data
Date of Admission: 12/29/24
Date of Discharge: 12/31/24
-
Pending Results: No
Hospital Course
Discharging Physician : Dr. Daiana Khan and Dr. Juan Manuel Landin
Disposition : Home
Primary care physician : Dr. Natasha George
Principal Discharge diagnosis : Anxiety, chest pain likely due to nonischemic cardiac injury in the setting of metabolic acidosis, moderate alcohol consumption
Chronic Discharge diagnosis :
Pulmonary fibrosis
Hyperlipidemia
Hypothyroidism
Insomnia
Interstitial pulmonary disease
Osteoporosis
Scoliosis
EtOH use disorder
Hospital Course :
84-year-old female with a past medical history of pulmonary fibrosis, hypothyroidism, alcohol use disorder who presented with left-sided chest pain. 1 week prior to arrival, she experienced a mechanical fall while walking her dogs. Since that
time, she has had persistent localized chest wall pain, exacerbated by palpation but without radiation or associated shortness of breath. In the days following her fall, she reported consuming 'a couple of bottles of wine' daily, and noted feeling
increasingly unwell. Her last reported alcohol intake was the evening of 12/27/2024.
Upon presentation, vitals were stable, but labs revealed elevated anion gap metabolic acidosis with ketonuria. She was diagnosed with alcoholic ketoacidosis in the setting of poor oral intake and binge drinking, and admitted for management of
possible alcohol withdrawal syndrome. She was started on a phenobarbital taper, with benzodiazepines available as needed, and received IV fluids containing bicarbonate, multivitamins, thiamine and folate. Lactate was 1.3 and patient was afebrile
making sepsis unlikely. EKG revealed no signs of ischemia, and there was mild troponin elevation after which cardiology was consulted. Pain was reproducible and likely musculoskeletal from the fall. Cardiology determined that troponin bump was
likely due to nonischemic myocardial injury in the context of metabolic stress. Recommended warm compresses and patient was conservatively treated with morphine and eventually tried lidocaine patches to try to wean off of morphine. Outpatient
echocardiogram is recommended.
Mildly elevated lipase at 367 on 12/28/2024 was noted on labs which decreased to 292 on 12/30/2024. This is consistent with alcohol related pancreatic irritation rather than acute pancreatitis, and patient was counseled on strict alcohol cessation.
Patient was also found to have hyponatremia of 128 on 12/30/2024 which increased to 130 on 12/31/24. Potassium was 3.3, after which it was repleted. Stool guaiac was positive for occult blood, gastroenterology was consulted and patient underwent
EGD. EGD revealed patchy gastritis and duodenitis but no ulcers or visible bleeding. Biopsies were taken to rule out H. pylori. She was instructed to avoid NSAIDs and to be discharged on a PPI twice daily indefinitely.
Upon the request of family, psychiatry was consulted as son felt ' she was not herself.' Psychiatrist recommended tapering paroxetine as it can cause hyponatremia and eventual transition to mirtazapine (Remeron) after sodium stabilizes. Advised
alcohol cessation. She was advised to follow-up closely with her PCP after discharge. Patient refusing visiting nurse/rehab facility at this time.
Important imaging findings :
CXR 12/28/2024: No acute cardiopulmonary process
Procedure findings :
Endoscopy 12/30/2024:
- Esophagus was normal
� Patchy mild to moderate inflammation characterized by erythema found in the gastric antrum in the gastric body. Biopsies were taken with cold forceps for histology.
� Patchy mildly erythematous mucosa without active bleeding and no stigmata of bleeding was found in the duodenal bulb.
Discharge Plan
-
Patient Disposition: Home (Routine Discharge)
Discharge Diagnosis/Procedures: Alcoholic ketoacidosis, Anxiety, chest pain likely due to nonischemic myocardial injury in the setting of metabolic acidosis, moderate alcohol consumption
Condition: Good
Diet: As tolerated
Additional Diets: MUST STOP ALCOHOL!!!
Activity: As tolerated
Driving Restrictions: As prior to admission
Bathing Restrictions: None
Referrals:
Ivis West CRNP [Specified Professional Personl, Cardiology] - 01/26/25 1:40 pm
Natasha George NP [Family Provider, Internal Medicine] - in less than 1 week
Referral Note: Psychiatry recommends tapering and eventually discontinuing Paxil. Paxil may be the reason her sodium levels have been decreased. Decreased 10 mg dose to 5 mg at discharge. Patient can be switched to remeron after Paxil is
discontinued, and her sodium is normalized.
Additional Discharge Medication Instructions: CBC, CMP in 1 week (obtain script from PCP)
Prescriptions:
New
lorazepam 0.5 mg Tablet
0.25 mg PO HSPRN PRN (Reason: at hs for sleep) Qty: 7 0RF
lidocaine 4 % Adhesive Patch,Medicated
1 patch topical DAILY Qty: 10 0RF
paroxetine HCl 10 mg tablet
10 mg PO DAILY Qty: 30 0RF
Continued
rosuvastatin 5 mg Tablet
5 mg PO HS
levothyroxine [Synthroid] 75 mcg Tablet
75 mcg PO DAILY
docusate sodium [Colace] 100 mg Capsule
100 mg PO DAILYPRN PRN (Reason: constipation)
acetaminophen 500 mg Tablet
500 mg PO Q6HPRN PRN (Reason: mild pain)
calcium carbonate [Calcium 600] 600 mg calcium (1,500 mg) Tablet
1,800 mg PO DAILY
Hair, Skin and Nails (biotin) 10,000 mcg Tablet,Chewable
10,000 mcg PO DAILY
pantoprazole 40 mg tablet,delayed release (DR/EC)
40 mg PO DAILY
Discontinued
paroxetine HCl 10 MG tablet
10 mg PO DAILY
alprazolam [Xanax] 0.5 mg Tablet
0.5 mg PO HS PRN (Reason: sleep)
Discharge Orders:
Discharge Patient (As Directed); Ordered 12/31/24
Ordered By: Scottie Barker
Discharge Date and Time
Print Language: MALAYSIAN
== END 2024-12-31 22:11 | disposition home or self-care (01) | DRG 896 ==
LOC: 4 EAST ACU 06:28
PROVIDERS: Emergency Medicine; ADMITTING PHYSICIAN Hospitalist; ATTENDING PHYSICIAN Internal Medicine; CONSULT PHYSICIAN Internal Medicine; CONSULT PHYSICIAN Psychiatry & Neurology Psychiatry; EMERGENCY PHYSICIAN Student in an Organized Health Care Education/Training Program; FAMILY PHYSICIAN Internal Medicine; OTHER PHYSICIAN Internal Medicine
PROC: 0DB78ZX Excision of Stomach, Pylorus, Via Natural or Artificial Opening Endoscopic, Diagnostic (ICD-10-PCS; 2024-12-30)
DX: F10.239 Alcohol dependence with withdrawal, unspecified (principal); K29.21 Alcoholic gastritis with bleeding; E87.29 Other acidosis; I5A Non-ischemic myocardial injury (non-traumatic); E87.1 Hypo-osmolality and hyponatremia; J84.10 Pulmonary fibrosis, unspecified; E89.0 Postprocedural hypothyroidism; D64.9 Anemia, unspecified; F17.200 Nicotine dependence, unspecified, uncomplicated; F41.9 Anxiety disorder, unspecified; K29.50 Unspecified chronic gastritis without bleeding; K29.80 Duodenitis without bleeding; K31.89 Other diseases of stomach and duodenum; K44.9 Diaphragmatic hernia without obstruction or gangrene; E78.5 Hyperlipidemia, unspecified; G47.00 Insomnia, unspecified; M41.9 Scoliosis, unspecified; Z79.899 Other long term (current) drug therapy
CPT/HCPCS: 71046; 80048; 80053; 80061; 81003; 81015; 82962; 83605; 83690; 83735; 84100; 84443; 84484; 85014; 85018; 85025; 85027; 85610; 86850; 86870; 86900; 86901; 88305; 88342; 93005; 97116; 97162; 97167; 97530

== ENCOUNTER 2025-01-06 01:15 | Emergency (ER) | payer MEDICARE, SELFPAY ==
[2025-01-06 01:19] VITALS: BP 125/62
[2025-01-06 01:25] VITALS: BP 125/62
[2025-01-06 01:39] VITALS: BMI 21.6
[2025-01-06 02:00] VITALS: BP 115/58
[2025-01-06 02:08] LABS: Hematocrit 28.2 % (37.0-47.0); Hemoglobin 9.5 g/dL (12.0-16.0); Mean Corp Hgb Conc. 33.7 g/dL (33.0-37.0); Mean Corpuscular Volume 97.9 fL (81.0-99.0); Nucleated Red Blood Cells % 0 %; Platelet Count 249 10^3/uL (130-400); Red Cell Dist. Width 13.7 % (11.5-14.5)
[2025-01-06 02:22] LABS: INR 0.84; PT 12.0 Sec (11.4-14.6)
[2025-01-06 02:23] LABS: APTT 28.1 Sec (23.4-35.0)
[2025-01-06 02:29] LABS: ALT (SGPT) 24 U/L (0-35); AST (SGOT) 37 U/L (14-36); Acetaminophen 16 ug/ml (10-30); Albumin 3.6 g/dl (3.5-5.0); Alkaline Phosphatase 70 U/L (38-126); Blood Urea Nitrogen 21 mg/dl (7-17); Calcium 9.4 mg/dl (8.4-10.2); Carbon Dioxide 28 mmol/L (22-30); Chloride 107 mmol/L (98-107); Estimated Creatinine Clearance 52 ml/min; Glucose 108 mg/dl (70-99); Lipase 408 U/L (23-300); Potassium 3.9 mmol/L (3.5-5.1); Sodium 138 mmol/L (135-145); Total Protein 6.4 g/dl (6.3-8.2); eGFR > 60.00
[2025-01-06 02:34] LABS: Salicylate < 1.0 mg/dl (2.0-20.0)
[2025-01-06 03:00] VITALS: BP 144/61
--- NOTE | 2025-01-06 03:04 | ED.GENMED ---
History of Present Illness
<Clint Jain DO - Last Filed: 01/07/25 22:09>
General
Chief Complaint: Overdose Unintentional
Source: patient and ambulance crew
Exam Limitations: none
Time Seen by Provider: 01/06/25 01:18
Nursing documentation reviewed up to this point in time: agreed with
History of Present Illness
History of Present Illness:
Note:
CHIEF COMPLAINT(S)
Unsteadiness and chest discomfort.
HISTORY OF PRESENT ILLNESS
The patient is an 84-year-old female who presented to the emergency department due to feelings of unsteadiness and concerns about her overall health. The patient reports that she has not experienced any falls today but did have a fall approximately
two weeks ago from which residual facial bruising remains. She has been frequenting the emergency department regularly for various legitimate health concerns. Today, she reports that she has not consumed alcohol, although there is a history of
recent alcohol use. She did take a dose of Xanax earlier today, starting at 4 p.m. and ingesting a total of six tablets by 8 p.m., taken as two tablets per dose. She denies any intent to harm herself. She notes some chest discomfort, a recurring
issue from previous visits but mentions no new pain.
SOCIAL HISTORY
The patient resides with a family member, who is expected to arrive at the emergency department shortly. She has a history of occasional alcohol use.
REVIEW OF SYSTEMS
- General: Unsteadiness experienced today.
- Cardiovascular: Reports of chest discomfort, consistent with previous visits.
- Neurological: Unsteadiness without recent falls.
- Psychiatric: Denies any intent to harm herself.
PHYSICAL EXAM
General: Alert, no acute distress.
Skin: Warm, dry, with facial bruising from a fall two weeks prior.
Head: Normocephalic, atraumatic.
Neck: Supple, trachea midline.
Ears, Nose, and Throat: Oral mucosa moist.
Cardiovascular: Normal peripheral perfusion, No edema.
Respiratory: Respirations are non-labored.
Gastrointestinal: Abdomen nondistended.
Back: Normal range of motion, normal alignment.
Musculoskeletal: Normal range of motion, normal strength.
Neurological: Alert and oriented to person, place, time, and situation, No focal neurological deficit observed.
Psychiatric: Cooperative, appropriate mood & affect.
PLAN
- Conduct lab work to assess the patients current status.
- Engage the crisis team for evaluation and support.
- Review current medications and assess the need for adjustments, especially concerning the Xanax usage.
DIFFERENTIAL DIAGNOSIS
The Differential Diagnosis includes, in no particular order and is not limited to:
- Benzodiazepine overdose or misuse
- Alcohol withdrawal
- Cardiac ischemia
- Adverse drug reaction
- Orthostatic hypotension
- Anxiety disorder
- Depression or mood disorder
- Vestibular dysfunction
- Hypoglycemia
- Neurological event (e.g., transient ischemic attack)
CARE-UPDATE
01/06/25 - 02:10
The patient was assessed by crisis services and denied any suicidal or homicidal ideation, intent, or plan. They have been cleared by crisis services for further medical evaluation or treatment as needed.
CARE-UPDATE
01/06/25 - 03:04
Spoke with son Maikol, who is away. He is her primary caregiver. Patient does live with a different brother. After patient�s discharge from the hospital, she followed up with [facility]. She was prescribed Xanax instead of her usual
Ativan. The patient felt that it was ineffective. In the last two to three days, the patient has taken 24 to 30 Xanax in an attempt to get sleep. This behavior raises concerns about potential misuse and the need for careful monitoring of her
medication intake. Jacinto was concerned, so he sent her into the emergency department for evaluation. Son is willing to take the patient back to the home should she be cleared medically. They will follow up with their primary care provider to switch
back to Ativan. It is recommended to reassess the patients medication management plan and ensure proper follow-up care to address her insomnia and prevent further self-medication with Xanax.
Past History
<DO Isaias Bazan Last Filed: 01/07/25 22:09>
Past History
ED Past Medical History: Hypercholesterolemia, Hypothyroidism and Other (Hypothyroidism, previous fractured ribs on the right posterior)
ED Past Surgical History: Appendectomy, , Gynecological (Hysterectomy) and Other (Thyroidectomy)
Social History
Tobacco: Smoker
Alcohol: None
Living: with family
Family History
Family History: Negative Diabetes, Early CAD or CAD
Phy Exam
<DO Isaias Bazan Last Filed: 01/07/25 22:09>
General Physical Exam
General Presentation: well appearing and no apparent distress
General Skin: warm and dry
General Habitus: normal
General Mental: alert
General Hydration: appears well hydrated
ENT Exam
ENT Exam: EOMI, pharynx normal, neck supple and normocephalic
Eye Exam
Eye Exam: PERRL, cornea clear and conjunctiva normal
Cardiovascular Exam
Cardiovascular Exam: regular rate/rhythm, no edema, no murmur and normal peripheral pulses
Pulmonary Exam
Pulmonary Exam: lungs clear, no respiratory distress, no rales, no crackles, no rhonchi, no stridor, no wheezing and no cough
Gastrointestinal Exam
Gastrointestinal Exam: normal bowel sounds, non tender, soft, no organomegaly, no pulsatile mass and non distended
Neurological Exam
Neurological Exam: alert, oriented x3, no motor deficits and speech normal
Musculoskeletal Exam
Musculoskeletal Exam: full ROM and no edema
Skin Exam
Skin Exam: normal color, warm/dry, no rash, no petechia and other (Ecchymosis on the face from previous falls.)
Psychiatric Exam
Psychiatric Exam: normal mood/affect
Course
<DO Isaias Bazan Last Filed: 01/07/25 22:09>
Orders/Labs/Results
Orders:
Orders
01/06/25 01:30
Electrocardiogram (*1) Stat
Reason for Study: Other
Other Reason for Exam: overdose
EKG- Treatment ONCE
01/06/25 01:44
Crisis Consult Urgent
Reason for Consult: unintentional overdose
01/06/25 01:52
Acetaminophen Urgent
Alcohol Urgent
Complete Blood Count/With Diff Urgent
Comprehensive Metabolic Panel Urgent
Lipase Urgent
PTT Urgent
Prothrombin Time Urgent
Salicylate Urgent
01/06/25 04:22
Fentanyl, Urine Urgent
Urinalysis Reflex To Culture Urgent
Date Specimen was Collected: 01/06/25
Time Specimen was Collected: 04:20
Urine Drug Abuse Screen Urgent
Date Specimen was Collected: 01/06/25
Time Specimen was Collected: 04:20
Urine Microscopic Reflex Cult Urgent
Urine Culture Urgent
QUIANA Source: U
Specimen Description:
Date Specimen was Collected: 01/06/25
Time Specimen was Collected: 04:20
01/06/25 05:19
Fosfomycin [Monurol] 3 gm PO ONCE ONE
Abnormal Lab Results
01/06/25 01/06/25
01:52 04:22
RBC 2.88 L 10^6/uL
(4.20-5.40)
Hgb 9.5 L g/dL
(12.0-16.0)
Hct 28.2 L %
(37.0-47.0)
MCH 33.0 H pg
(27.0-31.0)
Absolute Monos (auto) 0.7 H 10^3/uL
(0.1-0.6)
Monocytes % 12.8 H %
(1.7-9.3)
BUN 21 H mg/dl
(7-17)
Glucose 108 H mg/dl
(70-99)
AST 37 H U/L
(14-36)
Lipase 408 H U/L
(23-300)
Urine Nitrite (Reflex) Positive A
(Negative)
Leukocyte Esterase Rfl 2+ A
(Negative)
Urine Bacteria (Reflex) Many A
(Negative)
Urine Albumin (Reflex) 1+ A
(Neg - Trace)
Salicylates < 1.0 L mg/dl
(2.0-20.0)
Ur Barbiturates Screen Positive H
(Negative)
U Benzodiazepines Scrn Positive H
(Negative)
01/06/25 01:52
01/06/25 01:52
Vital Signs
Initial and Last Documented VS:
Initial Vital Signs
Temp Pulse Resp BP Pulse Ox
98.1 F 65 20 125/62 96
01/06/25 01:19 01/06/25 01:19 01/06/25 01:19 01/06/25 01:19 01/06/25 01:19
Last Documented Vital Signs
Temp Pulse Resp BP Pulse Ox
98.1 F 70 20 135/63 97
01/06/25 01:19 01/06/25 04:18 01/06/25 04:18 01/06/25 04:18 01/06/25 04:18
<Alyson George, DO - Last Filed: 01/06/25 05:24>
Orders/Labs/Results
Orders:
Orders
01/06/25 01:30
Electrocardiogram (*1) Stat
Reason for Study: Other
Other Reason for Exam: overdose
EKG- Treatment ONCE
01/06/25 01:44
Crisis Consult Urgent
Reason for Consult: unintentional overdose
01/06/25 01:52
Acetaminophen Urgent
Alcohol Urgent
Complete Blood Count/With Diff Urgent
Comprehensive Metabolic Panel Urgent
Lipase Urgent
PTT Urgent
Prothrombin Time Urgent
Salicylate Urgent
01/06/25 04:22
Fentanyl, Urine Urgent
Urinalysis Reflex To Culture Urgent
Date Specimen was Collected: 01/06/25
Time Specimen was Collected: 04:20
Urine Drug Abuse Screen Urgent
Date Specimen was Collected: 01/06/25
Time Specimen was Collected: 04:20
Urine Microscopic Reflex Cult Urgent
Urine Culture Urgent
QUIANA Source: U
Specimen Description:
Date Specimen was Collected: 01/06/25
Time Specimen was Collected: 04:20
01/06/25 05:19
Fosfomycin [Monurol] 3 gm PO ONCE ONE
Abnormal Lab Results
01/06/25 01/06/25
01:52 04:22
RBC 2.88 L 10^6/uL
(4.20-5.40)
Hgb 9.5 L g/dL
(12.0-16.0)
Hct 28.2 L %
(37.0-47.0)
MCH 33.0 H pg
(27.0-31.0)
Absolute Monos (auto) 0.7 H 10^3/uL
(0.1-0.6)
Monocytes % 12.8 H %
(1.7-9.3)
BUN 21 H mg/dl
(7-17)
Glucose 108 H mg/dl
(70-99)
AST 37 H U/L
(14-36)
Lipase 408 H U/L
(23-300)
Urine Nitrite (Reflex) Positive A
(Negative)
Leukocyte Esterase Rfl 2+ A
(Negative)
Urine Bacteria (Reflex) Many A
(Negative)
Urine Albumin (Reflex) 1+ A
(Neg - Trace)
Salicylates < 1.0 L mg/dl
(2.0-20.0)
Ur Barbiturates Screen Positive H
(Negative)
U Benzodiazepines Scrn Positive H
(Negative)
01/06/25 01:52
01/06/25 01:52
Vital Signs
Initial and Last Documented VS:
Initial Vital Signs
Temp Pulse Resp BP Pulse Ox
98.1 F 65 20 125/62 96
01/06/25 01:19 01/06/25 01:19 01/06/25 01:19 01/06/25 01:19 01/06/25 01:19
Last Documented Vital Signs
Temp Pulse Resp BP Pulse Ox
98.1 F 70 20 135/63 97
01/06/25 01:19 01/06/25 04:18 01/06/25 04:18 01/06/25 04:18 01/06/25 04:18
<Clint Jain, DO - Last Filed: 01/07/25 22:09>
*Pulse Oximetry
SaO2: 96
Oxygen Mode of Delivery: Room air
Patient hypoxic: no
*Critical Care Note
Total Time (30-74mins, 75-104mins- exclusive of procedures): Not Applicable
<Alyson George DO - Last Filed: 01/06/25 05:24>
Update Note
Update Note:
Patient has successfully ambulated to and from the bathroom with steady gait.
Urine drug screen is positive for barbiturates as well as benzodiazepines. Patient was placed on phenobarbital taper during most recent hospitalization and she is chronically maintained on benzodiazepines.
Urinalysis is nitrite positive, showing many bacteria but only 6-10 WBCs as well as 11-15 squamous epithelial cells. I suspect contaminated specimen. Will treat with a one-time dose of Monurol and await urine culture.
Will discharge to home with her son.
Encouraged to significantly limit benzodiazepine use. According to PDMP, it appears that primary care physician is slowly weaning benzodiazepines. Most recent prescription however was just filled 3 days ago. Encouraged son to hold onto her
benzodiazepine prescription and allow 1 at bedtime only.
ED Attending Note
<Clint Jain, DO - Last Filed: 01/07/25 22:09>
-
Portions of this chart may have been created with voice recognition software.� Occasional wrong word or��sound alike� substitutions may have occurred due to the inherent limitations of voice recognition software.
Discharge Plan
Departure
Patient Disposition: Home (Routine Discharge)
Date of Disposition: 01/06/25
Time of Disposition: 05:24
Patient with high blood pressure during this ER visit?: No
Condition: Fair
Discharge Problem:
Benzodiazepine dependence, Accidental overdose, Anxiety, Asymptomatic bacteriuria
Instructions: Accidental Overdose (DC), Benzodiazepine use disorder - ED (DC)
Prescriptions:
No Action
rosuvastatin 5 mg Tablet
5 mg PO HS
levothyroxine [Synthroid] 75 mcg Tablet
75 mcg PO DAILY
acetaminophen 500 mg Tablet
500 mg PO Q6HPRN PRN (Reason: mild pain)
pantoprazole 40 mg tablet,delayed release (DR/EC)
40 mg PO DAILY
paroxetine HCl 10 mg tablet
5 mg PO DAILY
bisacodyl [Dulcolax (bisacodyl)] 5 mg Tablet,Delayed Release (Dr/Ec)
10 mg PO DAILYPRN PRN (Reason: constipation )
alprazolam
0.5 mg PO HS
Patient Comments:
Patient used 25 of her Xanax tablets in the last 2 days
Referrals:
Natasha George NP [Family Provider, Internal Medicine]
Activity Restrictions/Additional Instructions:
It is important that you follow-up with your family practice provider to adjust your benzodiazepine medications.
Thank You for choosing [facility].
It was a pleasure meeting you and taking part in your care. We hope for your continued healing and wellness.
Please read discharge instructions in their entirety. However, they are for general education and may not describe your exact diagnosis at discharge. Information on your ER visit and medical conditions were discussed with you along with appropriate
follow up information...
If indicated, please take your medications as instructed and indicated on discharge paperwork.
Please schedule a follow up appointment as directed. Call to schedule an appointment
Please return to the emergency department with ANY change in, persisting, or worsening of symptoms. If any of your symptoms do not improve, or persist, or become more severe within 6-12 hours, please return to the emergency department for further
care.
Please return to the emergency department if you develop a headache, neck pain/stiffness, fever greater than 100.4F, chest pain, shortness of breath, persistent nausea, vomiting, slurred speech, difficulty walking, numbness/tingling, weakness, signs
of infection or any other symptoms that are worrisome to you.
If you have any questions or concerns please do not hesitate to call the Hospital at
Interventions
Interventions:
*Risk Screen - Suicide Last Done: 01/06/25 01:19
*General Assessment Last Done: 01/06/25 01:19
*Neglect/Abuse Screening Last Done: 01/06/25 01:19
*ED- Fall Risk Assessment Last Done: 01/06/25 01:19
*ED COVID-19 Vaccine History Last Done: 01/06/25 01:19
*Nursing Disposition Last Done: 01/06/25 07:50
ED- Cardiac Assessment Last Done: 01/06/25 01:40
ED- Neurological Assessment Last Done: 01/06/25 01:40
ED-Psychological Assessment Last Done: 01/06/25 01:40
ED- Pulmonary Assessment Last Done: 01/06/25 01:40
Discharge Date and Time
Discharge Date/Time: 01/06/25 07:51
Print Language: SUDANESE
[2025-01-06 04:00] VITALS: BP 123/57
[2025-01-06 04:18] VITALS: BP 135/63
[2025-01-06 04:30] LABS: Urine Character Cloudy (Clear)
[2025-01-06 05:09] LABS: Urine Red Blood Cell None Seen /HPF (0-2)
[2025-01-06] MEDS: MONUROL 3 GM PO (05:24)
== END 2025-01-06 07:51 | disposition home or self-care (01) ==
LOC: EMR 01:15
PROVIDERS: EMERGENCY PHYSICIAN Student in an Organized Health Care Education/Training Program; FAMILY PHYSICIAN Internal Medicine
DX: T50.901A Poisoning by unspecified drugs, medicaments and biological substances, accidental (unintentional), initial encounter (principal); S00.83XA Contusion of other part of head, initial encounter; W19.XXXA Unspecified fall, initial encounter; R07.89 Other chest pain; F41.9 Anxiety disorder, unspecified; R82.71 Bacteriuria; F17.200 Nicotine dependence, unspecified, uncomplicated; E03.9 Hypothyroidism, unspecified; E78.00 Pure hypercholesterolemia, unspecified; F13.20 Sedative, hypnotic or anxiolytic dependence, uncomplicated
CPT/HCPCS: 80053; 80143; 80179; 80306; 80307; 81003; 81015; 82077; 83690; 85025; 85610; 85730; 87077; 87086; 87186; 93005; 99284

== ENCOUNTER 2025-01-06 16:51 | Inpatient (IN) | payer MEDICARE, SELFPAY ==
[2025-01-06] VITALS (14 sets, daily range): BP systolic 96–176; BP diastolic 65–112; BMI 23.1; BMI 21.0
--- NOTE | 2025-01-06 12:43 | ED.GENMED ---
Addendum entered and electronically signed by Jordan Alex PA-C 01/09/25 09:54:
Urine culture positive for greater than 100,000 CFU of E. coli. Patient admitted. Admitting team notified.
Original Note:
History of Present Illness
General
Chief Complaint: Withdrawal Symptoms
Source: patient
Exam Limitations: none
Time Seen by Provider: 01/06/25 12:43
Nursing documentation reviewed up to this point in time: agreed with
History of Present Illness
History of Present Illness:
Brought to the ER by patient is an 84-year-old female brought to the ER by for family. Patient has a history of alcohol abuse, chronic benzodiazepine use, pulmonary fibrosis, gastritis hypothyroidism.
patient was seen here this morning around 3 AM and was discharged around 8 AM. Family reports she was seen for overly taking Xanax. They took her home however they are concerned for withdrawal. Patient complains of feeling very nauseous anxious
shaky. Patient feels that she is going into benzo withdrawal. Family does not sleep with her being home. She has no prior history of withdrawal seizures. She does have a history of alcohol abuse and last drank several weeks ago.
Patient was seen here and recently admitted in the middle of December as well for chest pain prior to that had a fall from alcohol use. Patient was also found to be hyponatremic at that time
Past History
Past History
ED Past Medical History: Hypercholesterolemia, Hypothyroidism and Other (Hypothyroidism, previous fractured ribs on the right posterior)
ED Past Surgical History: Appendectomy, , Gynecological (Hysterectomy) and Other (Thyroidectomy)
Social History
Tobacco: Smoker
Alcohol: None
Living: with family
Family History
Family History: Negative Diabetes, Early CAD or CAD
Phy Exam
General Physical Exam
General Presentation: no apparent distress
General age: appears stated age
General Skin: warm and dry
General Habitus: normal
General Mental: alert
General Hydration: appears well hydrated
Cardiovascular Exam
Cardiovascular Exam: regular rate/rhythm, no murmur and normal peripheral pulses
Pulmonary Exam
Pulmonary Exam: lungs clear and no respiratory distress
Neurological Exam
Neurological Exam: alert and oriented x3
Musculoskeletal Exam
Musculoskeletal Exam: full ROM
Skin Exam
Skin Exam: normal color and warm/dry
Psychiatric Exam
Psychiatric Exam: anxious
Course
Orders/Labs/Results
Orders:
Orders
01/06/25 12:56
Acetaminophen 1000MG/100Ml [Ofirmev] 1,000 mg in 100 ml IV ONCE
Acetaminophen IV Indication:: ED Narcotic Naive Pt-ONCE
Ondansetron Injectable [Zofran] 4 mg IV NOW STA
01/06/25 12:59
IV Insert/Care/Rem.- Treatment PRN
0.9% Sodium Chloride 1000 ml [Nss] 1,000 ml IV BOLUS
01/06/25 13:17
Complete Blood Count/With Diff Urgent
Comprehensive Metabolic Panel Urgent
01/06/25 14:54
Ondansetron Injectable [Zofran] 4 mg .ROUTE .STK-MED ONE
Ondansetron Injectable [Zofran] 4 mg IV NOW STA
Abnormal Lab Results
01/06/25
13:17
RBC 3.07 L 10^6/uL
(4.20-5.40)
Hgb 10.0 L g/dL
(12.0-16.0)
Hct 29.5 L %
(37.0-47.0)
MCH 32.6 H pg
(27.0-31.0)
Absolute Monos (auto) 0.7 H 10^3/uL
(0.1-0.6)
Monocytes % 12.7 H %
(1.7-9.3)
AST 41 H U/L
(14-36)
01/06/25 13:17
01/06/25 13:17
Vital Signs
Initial and Last Documented VS:
Initial Vital Signs
Temp Pulse Resp BP Pulse Ox
98.1 F 72 20 135/76 95
01/06/25 11:21 01/06/25 11:21 01/06/25 11:21 01/06/25 11:21 01/06/25 11:21
Last Documented Vital Signs
Temp Pulse Resp BP Pulse Ox
98.2 F 72 20 135/76 95
01/06/25 12:28 01/06/25 11:21 01/06/25 11:21 01/06/25 11:21 01/06/25 12:46
MDM/Problems Addressed
Differential Diagnosis Includes:
Not limited to acute benzodiazepine withdrawal
MDM/Problems Addressed:
As documented patient is an 84-year-old female who presents for evaluation. Patient has a history of longtime benzodiazepine use and had recently used all of her benzodiazepines. She was seen here last night and discharged very early this morning
however back to the ER for extreme anxiety shakiness and nausea. Family not able to manage this at home with concern for acute withdrawal would recommend admission. Patient is very nauseous here in the ER was given fluids and Zofran. She does
have a history of alcohol use several weeks ago as well and in the past had history of hyponatremia however sodium is normal now
Chronic conditions affecting care:
Chronic benzodiazepine use, alcohol use
*Pulse Oximetry
SaO2: 95
Oxygen Mode of Delivery: Room air
Patient hypoxic: no
*Critical Care Note
Total Time (30-74mins, 75-104mins- exclusive of procedures): Not Applicable
Data Reviewed
Review of Other/Old Records Reveals: Labs and Other (visit from last night )
Source: patient and family
ED Attending Note
-
Portions of this chart may have been created with voice recognition software.� Occasional wrong word or��sound alike� substitutions may have occurred due to the inherent limitations of voice recognition software.
Discharge Plan
Departure
Patient Disposition: Admit
Date of Disposition: 01/06/25
Time of Disposition: 14:56
Admit to: Med/Surg
Admit to doctor: hospitalist
Presentation/result/management discussed w/ accepting MD/DO: Hospitalist
Patient with high blood pressure during this ER visit?: Yes
Condition: Fair
Covid-19: Not Applicable
Discharge Problem:
Acute drug withdrawal syndrome
Prescriptions:
No Action
rosuvastatin 5 mg Tablet
5 mg PO HS
levothyroxine [Synthroid] 75 mcg Tablet
75 mcg PO DAILY
acetaminophen 500 mg Tablet
500 mg PO Q6HPRN PRN (Reason: mild pain)
calcium carbonate [Calcium 600] 600 mg calcium (1,500 mg) Tablet
1,800 mg PO DAILY
Hair, Skin and Nails (biotin) 10,000 mcg Tablet,Chewable
10,000 mcg PO DAILY
pantoprazole 40 mg tablet,delayed release (DR/EC)
40 mg PO DAILY
lidocaine 4 % Adhesive Patch,Medicated
1 patch topical DAILY Qty: 10 0RF
Rx Instructions:
to back
alprazolam [Xanax] 0.5 mg Tablet
0.5 mg PO HS
paroxetine HCl 10 mg tablet
10 mg PO Q48H
Referrals:
Natasha George NP [Family Provider, Internal Medicine]
Interventions
Interventions:
*Risk Screen - Suicide Last Done: 01/06/25 11:21
*General Assessment Last Done: 01/06/25 11:21
*Neglect/Abuse Screening Last Done: 01/06/25 11:21
*ED- Fall Risk Assessment Last Done: 01/06/25 12:40
*ED COVID-19 Vaccine History Last Done: 01/06/25 12:40
ED- Neurological Assessment Last Done: 01/06/25 12:40
ED-Psychological Assessment Last Done: 01/06/25 12:40
Discharge Date and Time
Print Language: CAPE VERDEAN
[2025-01-06] MEDS: ZOFRAN 4 MG IV ×2 (13:07→14:56)
[2025-01-06] MEDS: NSS 1000 IV (13:08)
[2025-01-06] MEDS: OFIRMEV 100 IV (13:08)
[2025-01-06 13:25] LABS: Hematocrit 29.5 % (37.0-47.0); Hemoglobin 10.0 g/dL (12.0-16.0); Mean Corp Hgb Conc. 33.9 g/dL (33.0-37.0); Mean Corpuscular Volume 96.1 fL (81.0-99.0); Nucleated Red Blood Cells % 0 %; Platelet Count 265 10^3/uL (130-400); Red Cell Dist. Width 14.0 % (11.5-14.5)
[2025-01-06 13:44] LABS: ALT (SGPT) 27 U/L (0-35); AST (SGOT) 41 U/L (14-36); Albumin 4.1 g/dl (3.5-5.0); Alkaline Phosphatase 74 U/L (38-126); Blood Urea Nitrogen 17 mg/dl (7-17); Calcium 9.6 mg/dl (8.4-10.2); Carbon Dioxide 23 mmol/L (22-30); Chloride 105 mmol/L (98-107); Estimated Creatinine Clearance 49 ml/min; Glucose 96 mg/dl (70-99); Potassium 3.9 mmol/L (3.5-5.1); Sodium 135 mmol/L (135-145); Total Protein 7.3 g/dl (6.3-8.2); eGFR > 60.00
--- NOTE | 2025-01-06 15:27 | HPS.HSE ---
Family Physician
-
Family Physician: Natasha George
Chief Complaint
-
Benzo abuse, shaky, anxious, depressed
History of Present Illness
84-year-old female from home where she lives with her son Maikol brought in for feeling shaky and anxious. She denies fever, chills, sore throat, chest pain, palpitations, cough, shortness of breath, abdominal pain, nausea, vomiting, diarrhea,
urinary symptoms
The patient was seen earlier today in the ER at 1 AM where she came in complaining of feeling unsteady had prior falls within the past 2 weeks. She reported taking Ativan earlier that day 8 tablets x 8 p.m. yesterday 01/05/2025 to try to get sleep.
She was brought to the ER by her daughter in the middle the night due to being out of it. She was discharged at 8 AM however at home she started becoming shaky, and anxious. I spoke with patient's son Maikol who is her primary chiropractic teacher who stated
she gets 90-day supply of Xanax last prescription was beginning of October that she used up early. She began drinking wine and of October into middle of December 2 bottles a day due to running out of Xanax early. She had past medical history of alcohol
abuse but had not drank in 15 years. She was admitted to the hospital last week for alcohol withdrawal she was given Ativan to take 0.25 mg at bedtime she was given 7 tablets of 0.5 mg however took those in a day. She was prescribed Xanax 0.5 mg
on 01/04/2020 5 in the evening but then took 24- 25 of those Xanax in the last 2 days. Her son states she has been sleeping all day however the patient states she was just trying to sleep. She was unaware that she has been sleeping for
days. The patient reports also feeling depressed, but not suicidal.
She has past medical history of alcohol abuse 15 years ago but started drinking again end of November into mid December due to running out of Xanax. History of falls from alcohol use history of anxiety, HLD, hypothyroidism status post thyroidectomy,
fractured ribs right posterior, active smoker, anemia
Medical History
Past Medical History
Past Medical History: Reports Other
Additional Past Medical History:
Xanax abuse
Alcohol abuse was sober 15 years ago relapsed November to December 2024
hyperlipidemia
hypothyroidism
anxiety
insomnia
interstitial pulmonary disease
osteoporosis
scoliosis
pulmonary fibrosis
Past Surgical History: Reports Other
Additional Past Surgical History:
x3
hysterectomy
appendectomy
thyroidectomy
cataract extraction
hammer toe repair
Social History
Tobacco: Smoker
Alcohol: Former (15 years however relapsed mid November to mid December 2024)
Personal: Single
Living: With Family (Lives with valeri Lassiter)
Employment: Retired
Family History
Family History: Not pertinent
Allergies / Home Medications
Allergies reflects when Allergies were last updated in [facility].
Home Medications with original date entered in [facility]
Allergy/Medication List:
Allergies
Allergy/AdvReac Type Severity Reaction Status Date / Time
No Known Allergies Allergy Verified 01/06/25 11:24
Home Medications
rosuvastatin 5 mg tablet 5 mg PO HS High Cholesterol 05/17/24
levothyroxine 75 mcg tablet (Synthroid) 75 mcg PO DAILY Thyroid 05/25/24
acetaminophen 500 mg tablet 500 mg PO Q6HPRN PRN mild pain 12/29/24
pantoprazole 40 mg tablet,delayed release 40 mg PO DAILY Gastrointestinal issue 12/29/24
alprazolam 0.5 mg PO HS 01/06/25
bisacodyl 5 mg tablet,delayed release (Dulcolax (bisacodyl)) 10 mg PO DAILYPRN PRN constipation 01/06/25
paroxetine HCl 10 mg tablet 5 mg PO DAILY 01/06/25
Review of Systems
-
History Source: Patient and Family (Son Maikol at bedside)
A 12 point ROS was completed and negative except as noted: Yes
Constitutional: Denies Fever or Chills
EENT: Denies Sore Throat or Runny Nose
Respiratory: Denies Cough or Trouble Breathing
Cardiac: Denies Chest Pain, Diaphoresis, Palpitations or Syncope
Abdomen/GI: Denies Abdominal Pain, Nausea, Vomiting, Diarrhea or Constipated
: Denies Dysuria, Frequency, Flank Pain, Incontinence or Difficulty Voiding
Musculoskeletal: Denies Joint Pain or Edema
Skin: Denies Itching
Neurological: Denies Dizzy, Headache or Weakness
Endocrine: Reports No Symptoms
Hematologic/Lymphatic: Reports No Symptoms
Psych: Reports Depression and Anxiety
Physical Exam
Vital Signs
Vital Signs
Temp Pulse Resp BP Pulse Ox
98.2 F 72 20 135/76 95
01/06/25 12:28 01/06/25 11:21 01/06/25 11:21 01/06/25 11:21 01/06/25 12:46
Physical Exam
General: Conversant and Other (Anxious); No Fever or Chills
HEENT: NormoCephalic, Anicteric, Moist mucous membranes, PERRLA, [place] Conjunctivae and No Ptosis
Respiratory: Clear; No Wheezes, Rales or Rhonchi
Cardiac: S1/S2 and Regular Rhythm; No Murmur, Rub, Gallop or Peripheral Edema
Breast: Deferred by me
GI: Soft, Non Tender, Non Distended, Normal Bowel Sounds and No Hepatosplenomegaly
Rectal: Deferred by Provider
Genito-urinary: Deferred by me
Musculoskeletal: No Clubbing, No Cyanosis and No Edema
Laboratory Results
-
01/06/25 13:17
01/06/25 13:17
Laboratory Results
Total Bilirubin 0.4 mg/dl (0.2-1.3) 01/06/25 13:17
AST 41 U/L (14-36) H 01/06/25 13:17
ALT 27 U/L (0-35) 01/06/25 13:17
Alkaline Phosphatase 74 U/L (38-126) 01/06/25 13:17
Impression/Plan
-
Impression/plan:
Admit to IMU
#Acute benzo overdose/concerns for impending withdrawal
#Anxious, restless took 25 tablets of Xanax 0.5 mg in the last 2 days last dose 01/06/2020 5 in the evening
#History anxiety
Consumption of 24-25 tablets(total 12.5 mg over the past 2 days 01/04 - 01/05/2025)
- Was on prior Ativan then transitioned to Xanax by primary care office
Acetaminophen 16, salicylate less than 1
- UDS positive barbiturates positive benzos
- Consult psychiatry�Dr. Lorelei aware
- Continue Paxil 5 mg daily
-Will start clonazepam 0.5 mg twice daily and clonazepam 0.5 every 6 hours as needed withdrawal symptoms
#Anemia�normocytic
Hgb 10 appears near baseline, MCV 96.1
#Prior alcohol abuse with prior falls
#Prior alcohol abuse 15 years ago started drinking again mid November 2 mid December due to running out of Xanax
No alcohol past 2 weeks as she receives Xanax prescription
Alcohol nondetected
#History of fall 2 weeks ago
#History of fractured right posterior ribs
- Fall precautions
#History of GI bleed fall 2023
#Requiring transfusion
- Continue Protonix 40 mg daily
#Hypothyroidism status post thyroidectomy
- Continue Synthroid 75 mcg p.o. daily
#Active smoker
-Cessation advised
#History pulmonary fibrosis
DVT prophylaxis
Subcu heparin
Full code
--- NOTE | 2025-01-06 17:02 | W.PN.UPDATE ---
Update Note
Progress Note Update
This is an addendum to H&P written by Amanda Watson on 01/06/2025. �Patient seen and examined independently with NEWS WRITER.
84-year-old female past medical history of anxiety, thyroidectomy, hypothyroidism, anemia, prior alcohol use disorder, hyperlipidemia, pulmonary fibrosis, presenting with nausea, anxiety and shakiness. �The past 2 days she took 25 tablets of 0.5 mg
of xanax.
She has had recent admission for anxiety, chest pain. �She was treated at that time with phenobarb taper for alcohol use. �She was discharged with Ativan which she used up in 1 day. �She came to the emergency room this morning and was discharged.
�No alcohol use in 1 week.
Vital signs show normal vitals although blood pressure elevated at times up to 170 systolic. �Labs unremarkable apart from chronic anemia.
Patient with symptoms of benzodiazepine withdrawal, and underlying benzodiazepine use disorder. �Will start Klonopin 0.5 twice daily BID with as needed Klonopin. Consider phenobarb protocol if worsening symptoms. �Zofran for nausea. �Psychiatry
consulted.
[2025-01-06] MEDS: KLONOPIN 0.5 MG PO ×3 (17:15→23:12)
[2025-01-06] MEDS: PHENERGAN 50.5 MG IV (19:54)
[2025-01-06] MEDS: CRESTOR 5 MG PO (23:12)
[2025-01-06] MEDS: HEPARIN 5000 UNITS SC (23:13)
--- NOTE | 2025-01-06 23:35 | PTCARENOTE ---
Pt answered yes to having 3 or more loose/ liquid BMs in the past 24 hours. pt placed on enhanced contact precautions per protocol.
[2025-01-07] VITALS (12 sets, daily range): BP systolic 95–141; BP diastolic 51–74; PULSE 76; O2SAT 96
[2025-01-07 05:20] LABS: Hematocrit 30.3 % (37.0-47.0); Hemoglobin 10.3 g/dL (12.0-16.0); Mean Corp Hgb Conc. 34.0 g/dL (33.0-37.0); Mean Corpuscular Volume 95.9 fL (81.0-99.0); Nucleated Red Blood Cells % 0 %; Platelet Count 271 10^3/uL (130-400); Red Cell Dist. Width 14.0 % (11.5-14.5)
[2025-01-07 05:47] LABS: ALT (SGPT) 24 U/L (0-35); AST (SGOT) 36 U/L (14-36); Albumin 3.5 g/dl (3.5-5.0); Alkaline Phosphatase 68 U/L (38-126); Blood Urea Nitrogen 10 mg/dl (7-17); Calcium 8.9 mg/dl (8.4-10.2); Carbon Dioxide 26 mmol/L (22-30); Chloride 110 mmol/L (98-107); Estimated Creatinine Clearance 49 ml/min; Glucose 93 mg/dl (70-99); Potassium 3.7 mmol/L (3.5-5.1); Sodium 139 mmol/L (135-145); Total Protein 6.3 g/dl (6.3-8.2); eGFR > 60.00
[2025-01-07] MEDS: SYNTHROID 75 MCG PO (05:55)
--- NOTE | 2025-01-07 07:22 | W.PN.HOSP.TC ---
Today's Communication/Plan
-
- follow MSAS
- clonazepam
- f/u psychiatry recommendations
- f/u PT/OT
- touch base with case management
Assessment / Plan
Assessment / Plan
In summary, this is 84 yo F
# Possible acute benzodiazepine overdose
# History anxiety
- felt anxious, restless on presentation, consumed >20 tablets of alprazolam over the past few days leading up to 01/06.
- UDS + for barbiturates (Was on phenobarbitol taper) + benzodiazepines; negative for EtOH
- Normal acetaminophen and salycylate levels
- f/u psychiatry recommendations
- Continue paroxetine 5 mg daily
- Continue clonazepam 0.5 mg bid daily and q6hprn
- follow MSAS
#Anemia�normocytic
- Hgb 10 appears near baseline, MCV 95.9
#Substance abuse - EtOH alcohol abuse with prior falls
- history of EtOH use; patient subjectively reported that she had vodka 2 days ago; however, UDS negative for EtOH
# Fall 2 weeks prior
- Fall precautions
# Chronic issues per below
# History of GI bleed in 2023: pantoprazole 40 mg daily
# Hypothyroidism s/p thyroidectomy: levothyroxine 75 mcg daily
# Active smoker: subjectively reports that she does not smoke cigarettes of illicit drug use; cessation advised
# History pulmonary fibrosis
# HLD: rosuvastatin 5mg
DVT prophylaxis: heparin
Full code
Disposition: pending. may likely need home care to ensure medications are taken appropriately
Anticipated Discharge: 24 - 48 hours
Subjective/Interval History
-
Date of Service: January 07, 2025
84 yo F who is p/w nausea, anxiety, and shakiness. She appears to be a poor historian. Chart records reviewed.
She came into the ED on 01/06 for overdose on lorazepam and was discharged that same day; however, represented later that day for nausea/anxiety/shakiness. She reportedly took 25 tablets of alprazolam 0.5mg in the past few days. family was concerned
for potential benzodiazepine withdrawal.
In the ED, VSS (BP 135/76, HR 72, afebrile)
She was started on clonazepam 0.5mg bid and 0.5mg q6hprn.
This morning, she says she feels well. Denies palpitations, visual, auditory, or tactile hallucinations, tremors, sweating.
This morning, she denies SI/HI and reports that she took the Xanax pills in order to sleep better.
Objective Data
-
Labs:
Laboratory Results
01/07/25
05:04
WBC 5.3
Hgb 10.3 L
Hct 30.3 L
Plt Count 271
Sodium 139
Potassium 3.7
Chloride 110 H
Carbon Dioxide 26
BUN 10
Creatinine 0.6
Glucose 93
Calcium 8.9
Total Bilirubin 0.3
AST 36
ALT 24
Alkaline Phosphatase 68
Hgb 10.3
MCV 95.9
electrolyes largely within normal limits
Albumin 3.5
MSAS scores have been = 1 (for HR 80-100)
UA: + leukocyte esterase, + nitrites, bacteria
UDS: + barbiturates; benzodiazepines, negative for alcohol
Salicylates: < 1.0
Acetaminophen: 16 (10-30)
Vital Signs:
Vital Signs
Temp Pulse Resp BP Pulse Ox
97.8 F 61 15 121/66 95
01/07/25 03:52 01/07/25 06:00 01/07/25 06:00 01/07/25 06:00 01/07/25 06:00
Review of Systems
-
History Source: Patient
Constitutional: Reports No Symptoms
EENT: Reports No Symptoms Reported
Respiratory: Reports No Symptoms
Cardiac: Reports No Symptoms
Abdomen/GI: Reports No Symptoms
Musculoskeletal: Reports No Symptoms
Skin: Reports No Symptoms
Neuro: Reports No Symptoms
Physical Exam
-
General: No Apparent Distress
HEENT: Normocephalic and Atraumatic
GI: Soft
Musculoskeletal: No Edema
Neuro: AO x 3, No Motor Deficits and Nonfocal/Grossly Intact
Psych: Calm
[2025-01-07] MEDS: KLONOPIN 0.5 MG PO ×3 (09:26→23:40)
[2025-01-07] MEDS: HEPARIN 5000 UNITS SC ×2 (09:26→20:29)
[2025-01-07] MEDS: PAXIL 5 MG PO (09:26)
[2025-01-07] MEDS: PROTONIX 40 MG PO (09:26)
--- NOTE | 2025-01-07 14:11 | CM ---
Addendum entered by Mica Steiner 01/07/25 15:46:
CM spoke with patient daughter in law Jena, reviewed pill dispenser information and referral options to [facility], [facility]. Daughter in law to talk to patient about options re [facility] and [facility]. Daughter in law to accompany patient at time of discharge. CM
will continue to follow for discharge planning needs.
Original Note:
Patient states that she lives with her son in [facility]. A one story home with 2 steps to enter. Patient PCP is from [facility] and uses the [facility] pharmacy. Patient has no VN or SNF needs in the past. Patient is not willing to talk with
[facility] when available and has declined VN supports at this time. Psych to see patient due to concerns re medications, await recommendations. CM will continue to follow for discharge planning needs.
Plan; Psych recommendations pending; medical treatment plan
--- NOTE | 2025-01-07 15:11 | CON.MD ---
Consultation - Medical
-
patient seen chart reviewed. discussed with nursing and case mgt. this consult is being done today january 07 2025. patient is an 84 year old woman known to this policy writer sales who saw her in consultation exactly one week ago. at that time she had been hosp
at after a fall in which she suffered bruising to her face and chest. she complained of longstanding insomnia which she was medicating increasingly with alcohol. she was admitted today for overdosing with xanax. there are several estimations of
the amount she ingested ranging from six to eight to 24 to 30. the patient admits she consumed xanax....she says 'two at a time' but she does not remember how many exactly but says she feels 24 to 30 which her son estimated was the case, was an
overestimation. she does acknowledge she has a problem with alcohol and with the xanax. she sees self as sad re the of her son from an overdose at age 44 but not necessarily depressed. appetite is fair. she is tired a lot she feels bc she
cannot sleep. she had been taking paxil 10 mg for some years which she did not find helpful. for that reason and bc of hyponatremia this policy writer sales decreased paxil to 5 mg last admit with a plan to dc and reconsider an antidepressant if her sodium came
back up which it has.
past psych hx wee prior record. see above
medical hx hx serious gi bleed in winter see chart. hgb so low she required transfusion. she continues w gastritis and duodenopathy. hypothyroid tsh nl lft's ok. mild anemia improved from priors. nl sodium hx pulmonary nodule hld pulmonary
disease osteoporosis w path fx gerd s/p thyoidectomy note ua w + leuk est
fh two sons w addiction issues one from [place] other currently sober and lives w her
substance abuse etoh seems to be more honest about her drinking this go around. consumed two bottles wine relief captain and had told me prior one half to one bottle daily in the past year
social hx lives w son . loves to graden. has + friends attends a senior center occasionally see prior record for full social hx
mse alert ox3 appears in nad speech and thought process nl no psychosis mood is dysphoric affect ok no si aver intelligence insight judgment lacking
dx etoh use d.o severe unspecified depression vs dysthymia bzp dependence
plan would dc paxil. would consider remeron if sodium remains normal for sleep as well as depression/ anxiety. patient needs to consider some help in remaining etoh free. i do not believe this was a suicide attempt but it was certainly poor
judgment and she and i have discussed the impact of her poor judgment including etoh etc on her health and well being. she said she would attend iop. have ordered [facility] consult. at this point she does not seem to be withdrawing from the xanax.
would monitor for etoh and bzp withdrawal carefully. bp on the low side today. she does not appear in any distress. currently has kenton zuleta an prn. last admit she did not have much in the way of etoh wd. consider sleep study. encourage
interaction with friends activities in the community. son should hold her medications. there should be NO etoh in the home. psych will follow
[2025-01-07] MEDS: TYLENOL 650 MG PO (18:35)
[2025-01-07] MEDS: CRESTOR 5 MG PO (21:22)
--- NOTE | 2025-01-07 21:53 | PTCARENOTE ---
Assumed care of pt from dayshift RN after change of shift report. Pt denies nausea/ vomiting. admits to slight abdominal aching. msas at a 1. pt assisted with hs hygiene. assessment as documented. call light in reach.
[2025-01-08] VITALS (12 sets, daily range): BP systolic 96–130; BP diastolic 55–93
[2025-01-08 04:25] LABS: Hematocrit 28.2 % (37.0-47.0); Hemoglobin 9.3 g/dL (12.0-16.0); Mean Corp Hgb Conc. 33.0 g/dL (33.0-37.0); Mean Corpuscular Volume 96.9 fL (81.0-99.0); Nucleated Red Blood Cells % 0 %; Platelet Count 293 10^3/uL (130-400); Red Cell Dist. Width 14.2 % (11.5-14.5)
[2025-01-08 04:50] LABS: ALT (SGPT) 30 U/L (0-35); AST (SGOT) 47 U/L (14-36); Albumin 3.5 g/dl (3.5-5.0); Alkaline Phosphatase 69 U/L (38-126); Blood Urea Nitrogen 17 mg/dl (7-17); Calcium 8.8 mg/dl (8.4-10.2); Carbon Dioxide 25 mmol/L (22-30); Chloride 109 mmol/L (98-107); Estimated Creatinine Clearance 42 ml/min; Glucose 98 mg/dl (70-99); Potassium 3.8 mmol/L (3.5-5.1); Sodium 138 mmol/L (135-145); Total Protein 6.2 g/dl (6.3-8.2); eGFR > 60.00
[2025-01-08] MEDS: SYNTHROID 75 MCG PO (05:25)
--- NOTE | 2025-01-08 07:14 | W.PN.HOSP.TC ---
Today's Communication/Plan
-
- disposition: [facility] and [facility], CM aware,
- consider mirtazapine 7.5mg qhs
- f/u psychiatry recs
Assessment / Plan
Assessment / Plan
In summary, this is 84 yo F
# Possible acute benzodiazepine overdose
# History anxiety
- felt anxious, restless on presentation, consumed 8-20 tablets of alprazolam over the past few days leading up to 01/06.
- UDS + for barbiturates (Was on phenobarbitol taper) + benzodiazepines; negative for EtOH
- Normal acetaminophen and salycylate levels
- denies SI/HI today
- per psychiatry, discontinue paroxetine 5 mg daily
- per psychiatry, consider mirtazapine (she expressed difficulty sleeping)
- Continue clonazepam 0.5 mg bid daily and q6hprn; requesting 1x prn at around midnight; perhaps mirtazapine can help with this midnight dose
- follow MSAS
- she is amenable to visiting nurse and [facility] when discharged.
#Anemia�normocytic
- Hgb 10 appears near baseline, MCV 95.9
#Substance abuse - EtOH alcohol abuse with prior falls
- history of EtOH use; patient subjectively reported that she had vodka 2 days ago; however, UDS negative for EtOH
# Fall 2 weeks prior
- Fall precautions
- pain on anterior ribs is reproducible to palpation, supporting a musculoskeletal cause
# Chronic issues per below
# History of GI bleed in 2023: pantoprazole 40 mg daily
# Hypothyroidism s/p thyroidectomy: levothyroxine 75 mcg daily
# Active smoker: subjectively reports that she does not smoke cigarettes of illicit drug use; cessation advised
# History pulmonary fibrosis
# HLD: rosuvastatin 5mg
DVT prophylaxis: heparin
Full code
Disposition: [facility] and [facility] at home
Anticipated Discharge: 24 - 48 hours
Subjective/Interval History
-
Date of Service: January 08, 2025
feels well this am, asking about when can be discharged.
amenable to visiting nurse
denies SI/HI, denies tremors, palpitations, sweating, hallucinations
reports skeletal pain along anterior ribs, attributed to her fall
Objective Data
-
Labs:
Laboratory Results
01/08/25
04:09
WBC 5.3
Hgb 9.3 L
Hct 28.2 L
Plt Count 293
Sodium 138
Potassium 3.8
Chloride 109 H
Carbon Dioxide 25
BUN 17
Creatinine 0.7
Glucose 98
Calcium 8.8
Total Bilirubin 0.3
AST 47 H
ALT 30
Alkaline Phosphatase 69
MSAS 1-2
Vital Signs:
Vital Signs
Temp Pulse Resp BP Pulse Ox
98.1 F 57 17 101/56 98
01/08/25 03:00 01/08/25 06:00 01/08/25 06:00 01/08/25 06:00 01/08/25 04:48
Review of Systems
-
History Source: Patient
Constitutional: Reports No Symptoms
EENT: Reports No Symptoms Reported
Respiratory: Reports No Symptoms
Cardiac: Reports No Symptoms
Abdomen/GI: Reports No Symptoms
Musculoskeletal: Reports No Symptoms
Skin: Reports No Symptoms
Neuro: Reports No Symptoms
Physical Exam
-
General: No Apparent Distress
HEENT: Normocephalic and Atraumatic
GI: Soft
Musculoskeletal: No Edema and Other (tenderness to palpation of anterior chest, reproducible on palpation)
Neuro: AO x 3, No Motor Deficits and Nonfocal/Grossly Intact
Psych: Calm
[2025-01-08] MEDS: PROTONIX 40 MG PO (09:36)
[2025-01-08] MEDS: KLONOPIN 0.5 MG PO ×3 (09:36→20:52)
[2025-01-08] MEDS: HEPARIN 5000 UNITS SC ×2 (09:36→20:52)
--- NOTE | 2025-01-08 11:06 | CM ---
Addendum entered by Angle Marte 01/09/25 08:15:
late entry: per Dr. Perez who met with patient/family feels substance abuse/drug rehab would be beneficial - patient/family agreeable. CM notified Yaneth from [facility] who will have David from [facility] come tomorrow on site to meet with patient and
speak with family.
PLAN: inpatient substance abuse rehab, CM to follow-up
Original Note:
Patient seen at bedside
seen by Dr. Dean yesterday
daughter in law would like to speak with Dr. Dean[facility] aware
CM Spoke with SAMARA Bella
patient/DIL agreeable with [facility] & [facility]
DIL also states getting [facility] that dispenses medications
CM spoke with Yaneth at [facility] who stated patient accepted resources on 12/31 & [facility] will follow post-dc
PLAN: Home with & [facility] when stable
--- NOTE | 2025-01-08 14:47 | W.PN.UPDATE ---
Update Note
Progress Note Update
Patient seem rather depressed and angry. Initially she wanted to go home but was rather focused on taking medications. daughter who was present with other family members were concerned ad the patient was discharged only about a week ago and quickly
relapsed.
I feel that the chances of relapse at home are high; patient eventually agreed she would go.
Will contact CM as well as hospitalist.
[2025-01-08] MEDS: TYLENOL 650 MG PO ×2 (15:32→20:54)
--- NOTE | 2025-01-08 15:38 | PTCARENOTE ---
pt with increasing agitation throughout shift d/t bed alarm being activated. Pt not ringing call mendez appropriately, updated pt on plan of care. DIL at bedside understanding of plan of care.
--- NOTE | 2025-01-08 19:00 | PTCARENOTE ---
pt is aaox3, reports a headache, but denies any nausea and no loose stools. pt is oob to chair, w/ chair alarm. pt has call mendez in reach.
[2025-01-08] MEDS: MELATONIN 5 MG PO (20:52)
[2025-01-08] MEDS: CRESTOR 5 MG PO (20:53)
[2025-01-08] MEDS: REMERON 7.5 MG PO (20:53)
[2025-01-09] VITALS: BP 109/50
[2025-01-09 02:37] VITALS: BP 126/77
[2025-01-09 04:57] VITALS: BMI 21.8
[2025-01-09] MEDS: SYNTHROID 75 MCG PO (05:11)
[2025-01-09 05:19] LABS: Hematocrit 31.4 % (37.0-47.0); Hemoglobin 10.4 g/dL (12.0-16.0); Mean Corp Hgb Conc. 33.1 g/dL (33.0-37.0); Mean Corpuscular Volume 97.2 fL (81.0-99.0); Nucleated Red Blood Cells % 0.4 %; Platelet Count 312 10^3/uL (130-400); Red Cell Dist. Width 14.3 % (11.5-14.5)
[2025-01-09 06:57] LABS: ALT (SGPT) 31 U/L (0-35); AST (SGOT) 42 U/L (14-36); Albumin 3.7 g/dl (3.5-5.0); Alkaline Phosphatase 72 U/L (38-126); Blood Urea Nitrogen 25 mg/dl (7-17); Calcium 9.1 mg/dl (8.4-10.2); Carbon Dioxide 26 mmol/L (22-30); Chloride 109 mmol/L (98-107); Estimated Creatinine Clearance 49 ml/min; Glucose 95 mg/dl (70-99); Potassium 4.0 mmol/L (3.5-5.1); Sodium 139 mmol/L (135-145); Total Protein 6.3 g/dl (6.3-8.2); eGFR > 60.00
--- NOTE | 2025-01-09 07:19 | W.PN.HOSP.TC ---
Today's Communication/Plan
-
- f/u psychiatry recs
- f/u CM
Assessment / Plan
Assessment / Plan
In summary, this is 84 yo F
# Possible acute benzodiazepine overdose
# History anxiety
- felt anxious, restless on presentation, consumed 8-20 tablets of alprazolam over the past few days leading up to 01/06.
- UDS + for barbiturates (Was on phenobarbitol taper) + benzodiazepines; negative for EtOH
- Normal acetaminophen and salycylate levels
- per psychiatry, discontinue paroxetine 5 mg daily
- per psychiatry, started mirtazapine (she expressed difficulty sleeping), 01/08
- Continue clonazepam 0.5 mg bid daily and q6hprn; requesting 1x prn per day.
- follow MSAS = 0
- f/u psychiatry and CM recs regarding placement
#Anemia�normocytic
- Hgb 10 appears near baseline, MCV 95.9
#Substance abuse - EtOH alcohol abuse with prior falls
- history of EtOH use; patient subjectively reported that she had vodka 2 days ago; however, UDS negative for EtOH
# Asymptomatic bacteriuria
- UA culture grew e. coli (schmidt sensitive)
- however, Jena Maldonado denies dysuria or any symptoms
- no indication to treat
# Fall 2 weeks prior
- Fall precautions
- pain on anterior ribs is reproducible to palpation, supporting a musculoskeletal cause
# Chronic issues per below
# History of GI bleed in 2023: pantoprazole 40 mg daily
# Hypothyroidism s/p thyroidectomy: levothyroxine 75 mcg daily
# Active smoker: subjectively reports that she does not smoke cigarettes of illicit drug use; cessation advised
# History pulmonary fibrosis
# HLD: rosuvastatin 5mg
DVT prophylaxis: heparin
Full code
Disposition: to facility, [facility] and [facility], f/u CM reccs
Anticipated Discharge: 24 - 48 hours
Subjective/Interval History
-
Date of Service: January 09, 2025
feels well, denies tremors, hallucinations
denies dysuria
Objective Data
-
Labs:
Laboratory Results
01/09/25 01/09/25
05:06 06:24
WBC 5.5
Hgb 10.4 L
Hct 31.4 L
Plt Count 312
Sodium Cancelled 139
Potassium Cancelled 4.0
Chloride Cancelled 109 H
Carbon Dioxide Cancelled 26
BUN Cancelled 25 H
Creatinine Cancelled 0.6
Glucose Cancelled 95
Calcium Cancelled 9.1
Total Bilirubin Cancelled 0.3
AST Cancelled 42 H
ALT Cancelled 31
Alkaline Phosphatase Cancelled 72
MSAS = 0
Urine Culture Final 01/08/25-0856
CC: Greater than 100,000 CFU/ML Escherichia coli
Organism 1 Escherichia coli
1. Escherichia coli
M.I.C. RX
--------- ---
Amoxicillin/Potas. Clavulanate <=8/4 S
Ampicillin <=8 S
Ampicillin/Sulbactam <=4/2 S
Aztreonam <=4 S
Cefazolin <=2 S
Ertapenem <=0.5 S
Ciprofloxacin <=0.25 S
Gentamicin <=2 S
Meropenem <=1 S
Nitrofurantoin-Urine Only <=32 S
Piperacillin/Tazobactam <=8 S
Tetracycline <=4 S
Tobramycin <=2 S
Trimethoprim/Sulfamethoxazole <=2/38 S
Vital Signs:
Vital Signs
Temp Pulse Resp BP Pulse Ox
98.0 F 59 18 126/77 95
01/09/25 03:14 01/09/25 03:00 01/09/25 03:14 01/09/25 02:37 01/09/25 03:14
I&O
01/08/25 01/09/25 01/10/25
06:59 06:59 06:59
Intake Total 880 / 880
Balance 880 / 880
Review of Systems
-
History Source: Patient
Constitutional: Reports No Symptoms
EENT: Reports No Symptoms Reported
Respiratory: Reports No Symptoms
Cardiac: Reports No Symptoms
Abdomen/GI: Reports No Symptoms
Musculoskeletal: Reports No Symptoms
Skin: Reports No Symptoms
Neuro: Reports No Symptoms
Physical Exam
-
General: No Apparent Distress
HEENT: Normocephalic and Atraumatic
GI: Soft
Musculoskeletal: No Edema and Other (tenderness to palpation of anterior chest, reproducible on palpation)
Neuro: AO x 3, No Motor Deficits and Nonfocal/Grossly Intact
Psych: Calm
[2025-01-09] MEDS: PROTONIX 40 MG PO (07:56)
[2025-01-09] MEDS: KLONOPIN 0.5 MG PO ×3 (07:56→20:36)
[2025-01-09] MEDS: HEPARIN 5000 UNITS SC ×2 (07:56→20:35)
[2025-01-09] MEDS: TYLENOL 650 MG PO (11:23)
[2025-01-09 12:01] VITALS: BP 106/39
--- NOTE | 2025-01-09 13:44 | W.PN.UPDATE ---
Update Note
Progress Note Update
Patient is overall doing well but is somehat irritable as she was apparently told she cannot use the razor to shave her legs after her shower. She is still agreeable to go to rehab but she may want to leave if it takes too long; I think if she does
not go the chances of relapse are significant.
She denies hopelessness or suicidal thoughts yet is angry feeling she is 'locked up'.
Will continue F/U.
--- NOTE | 2025-01-09 13:52 | PTCARENOTE ---
pt requesting to shower, pt does have shower order. Pt became agitated that she wasn't able to shave her legs in the shower. Explained to patient that it can become a safety issue. Pt now irate and refusing to shower. Pt states that she hasn't been
cleaned up all week. This RN further explained to pt that she was bathed yesterday in the bathroom with soap and water. Pt explaining to this RN that we are treating her like an 'invalid' and a 'baby'. RN explained to pt that if she uses call mendez
appropriately instead of jumping out of bed, we would be able to silence the alarm. Reinforced use of call mendez. Pt provided klonopin for breakthrough agitation. DIL mayte updated.
--- NOTE | 2025-01-09 14:01 | PTCARENOTE ---
spoke with SAMARA Bella, and aleksey Bella. Son Jessee is okay to be updated [phone]..
[2025-01-09 16:00] VITALS: BP 90/65
--- NOTE | 2025-01-09 17:52 | PTCARENOTE ---
pt much more pleasant after receiving klonopin. Pt apologetic for behavior earlier in the day and very appreciative of all the care being given.
[2025-01-09 20:03] VITALS: BP 87/64
[2025-01-09] MEDS: REMERON 7.5 MG PO (20:36)
[2025-01-09] MEDS: MELATONIN 5 MG PO (20:36)
[2025-01-09] MEDS: CRESTOR 5 MG PO (20:36)
[2025-01-10] VITALS (8 sets, daily range): BP systolic 103–120; BP diastolic 56–76; PULSE 70
[2025-01-10] MEDS: SYNTHROID 75 MCG PO (04:52)
[2025-01-10 05:11] LABS: Hematocrit 30.4 % (37.0-47.0); Hemoglobin 10.2 g/dL (12.0-16.0); Mean Corp Hgb Conc. 33.6 g/dL (33.0-37.0); Mean Corpuscular Volume 97.4 fL (81.0-99.0); Nucleated Red Blood Cells % 0.3 %; Platelet Count 318 10^3/uL (130-400); Red Cell Dist. Width 14.6 % (11.5-14.5)
[2025-01-10] MEDS: TYLENOL 650 MG PO (05:28)
[2025-01-10 05:35] LABS: ALT (SGPT) 28 U/L (0-35); AST (SGOT) 35 U/L (14-36); Albumin 3.5 g/dl (3.5-5.0); Alkaline Phosphatase 80 U/L (38-126); Blood Urea Nitrogen 24 mg/dl (7-17); Calcium 8.7 mg/dl (8.4-10.2); Carbon Dioxide 25 mmol/L (22-30); Chloride 112 mmol/L (98-107); Estimated Creatinine Clearance 42 ml/min; Glucose 96 mg/dl (70-99); Potassium 4.1 mmol/L (3.5-5.1); Sodium 142 mmol/L (135-145); Total Protein 6.3 g/dl (6.3-8.2); eGFR > 60.00
[2025-01-10] MEDS: PROTONIX 40 MG PO (08:02)
[2025-01-10] MEDS: KLONOPIN 0.5 MG PO ×3 (08:03→20:16)
[2025-01-10] MEDS: HEPARIN 5000 UNITS SC ×2 (08:03→19:41)
--- NOTE | 2025-01-10 09:09 | W.PN.HOSP.TC ---
Addendum entered and electronically signed by Nate oByd MD 01/10/25 20:23:
Attending Addendum-
I saw and evaluated the patient. I reviewed the resident�s note and agree with findings and plan as documented in the resident�s note. Sub: Flat affect. 'I feel ok' Denies SI or HI. States the ribs hurt from fall but pain controlled. Denies urinary
complaints. Full 12 point ROS reviewed and negative except as documented Exam: Vitals reviewed in chart GEN-NAD heart RRR lungs clear abd soft LE no edema
Plan:
# Acute benzodiazepine overdose
# History uncontrolled anxiety and depression
- on admission UDS + for barbiturates (Was on phenobarbital taper) + benzodiazepines; negative for EtOH
- discontinue paroxetine and started on mirtazapine-01/08
- Continue clonazepam 0.5 mg bid daily and q6hprn
- DC MSAS = 0
- per psych geripsych appropriate
#Anemia�normocytic
- @ baseline
- repeat CBC In am
# AUD
- not in W/D
- DC MSAS as has been 0 x 48 hours
# Asymptomatic bacteriuria
- UA culture grew e. coli (schmidt sensitive)
- denies sxs
- no indication to treat
# History of GI bleed in 2023: pantoprazole
# Hypothyroidism s/p thyroidectomy: levothyroxine
# Tobacco Abuse: cessation advised
# History pulmonary fibrosis
# HLD: rosuvastatin
DVT prophylaxis: heparin
Full code
Disposition: to [facility] when able
Time spent coordinating care, review of plan of care with resident, personally reviewed records in EMR, med rec, consults, notes, labs, radiology, d/w nursing psych and CM � 52 mins
Original Note:
Today's Communication/Plan
-
- Continue clonazepam 0.5mg bid & prn
- Continue remeron 7.5mg for sleep
- Awaiting dispo to rehab, appreciate care mgmt input
Assessment / Plan
Assessment / Plan
Jena Maldonado is an 84yo F with a hx of alcohol abuse (15yr ago, relapse November 2024), hypothyroidism, HLD, anxiety who presented w suspected benzodiazepine overdose, now stable with MSAS0 on clonazepam, awaiting dispo to rehab facility.
#Acute benzodiazepine overdose
#Relapse alcohol use
#History anxiety
Pt felt anxious, restless on presentation, consumed 8-20 tablets of alprazolam over the past few days leading up to 01/06. UDS + for barbiturates (was on phenobarbitol taper) + benzodiazepines; negative for EtOH although endorsed drinking 2 bottles
wine/day once Xanax tables at home ran out October-Dec.
- Continue clonazepam 0.5 mg BID with PRN q6h
- Follow MSAS = 0
- Continue mirtazapine 7.5mg for sleep, per psychiatry
- Plan for discharge to rehab facility, pending case management
#Asymptomatic bacteriuria
UA culture grew e. coli (schmidt sensitive), no sx
- NTD, no indication to treat
#Chronic issues
# History of GI bleed in 2023: pantoprazole 40 mg daily
#Anemia�normocytic: trend Hgb (10.2 today, MCV 97.4 wnl, Hgb near baseline)
# Hypothyroidism s/p thyroidectomy: levothyroxine 75 mcg daily
# Active smoker: cessation advised
# HLD: rosuvastatin 5mg
# History pulmonary fibrosis
#Global
- DVT prophylaxis: heparin
- Full code
- Fall precautions
- Dispo: to rehab, [facility] and [facility], f/u CM reccs
Anticipated Discharge: 24 - 48 hours
Subjective/Interval History
-
Date of Service: January 10, 2025
Pt feeling well this am, denies any new sx. Slept well after taking clonazepam late in the day yesterday & remeron before bed. Used 1 prn clonazepam yesterday. No racing heart, shaking, chills, anxiety.
Objective Data
-
Labs:
Laboratory Results
01/10/25
05:00
WBC 5.8
Hgb 10.2 L
Hct 30.4 L
Plt Count 318
Sodium 142
Potassium 4.1
Chloride 112 H
Carbon Dioxide 25
BUN 24 H
Creatinine 0.7
Glucose 96
Calcium 8.7
Total Bilirubin 0.2
AST 35
ALT 28
Alkaline Phosphatase 80
Vital Signs:
Vital Signs
Temp Pulse Resp BP Pulse Ox
97.9 F 69 18 117/56 98
01/10/25 08:20 01/10/25 06:00 01/09/25 03:14 01/10/25 04:54 01/10/25 04:04
I&O
01/09/25 01/10/25 01/11/25
06:59 06:59 06:59
Intake Total 880 / 880
Balance 880 / 880
Review of Systems
-
History Source: Patient
Constitutional: Reports Sleep Disturbance (denies) and Chills (denies shaking, chills)
Respiratory: Reports Other (denies tachypnea)
Cardiac: Reports Palpitations (denies)
Psych: Reports Anxious (denies)
Physical Exam
-
General: Well Developed, Well Nourished, No Apparent Distress, Comfortable and Other (sitting in chair out of bed)
HEENT: Normocephalic, Atraumatic and Anicteric
Respiratory: Non Labored Respirations
Cardiac: Regular Rhythm (RRR)
Neuro: Awake, Alert and Oriented
Psych: Calm
Data Reviewed
-
Total Time Spent with Patient (in minutes): 15
Critical Care Time (in minutes): 35
Labs: Labs Reviewed by me
--- NOTE | 2025-01-10 13:52 | CM ---
Addendum entered by Emily Louie 01/10/25 15:53:
Case conference with psych and [facility]
Psych now recommending 201 [facility] placement to [facility]
201 placed on chart and psych will complete tomorrow
VM left for [facility] admissions/David [phone]
Faxed referral to [phone]- pending
Original Note:
CM reviewed pt with attending- medically ready for dc
Bedside meeting with pt and jackson/Barb
Pt in agreement with working with [facility] for inpt D/A tx
Multiple calls with David/ALIYAH throughout day
He is unable to complete bedside visit today
Per ALIYAH, [facility] and [facility] only facilities that accept [facility] products and age
Pt in agreement with referrals
CM faxed referrals and clinicals and awaiting review
[facility]- [phone]
[facility]- [phone]
Discharge Disposition- inpt D/A pending bed and auth
--- NOTE | 2025-01-10 15:13 | PTCARENOTE ---
Rec'd pt this AM. Pt becoming more irritable as day progresses. Will only go to rehab if placement is quick, or else demands to go home and go to outpatient treatment. Son arrived at bedside asking if pt can have her home klonipin that he just
picked up at pharmacy. He showed RN to pill bottles one was klonipin and one was remeron. RN educated pt and son that she is not to take any meds other than what the hospital is providing to her. Pt stated she was not trying to get any exttra
klonipin and agrees to cooperate, although she is feeling more agitated today. Psych in to see pt. as well as JOSY and David from [facility]
--- NOTE | 2025-01-10 15:18 | W.PN.UPDATE ---
Update Note
Progress Note Update
pt seen by me today to discuss progress. has been assessed and referrals out for transfer to detox program at either [facility] or [facility]. Pt seen, interviewed son. Very sad, uncomfortable, wants something to help now. Feels ashamed, angry
that she has not been able to contro this, upset that she needs to leave her home and her garden. Describes stoic life, as oldest daughter of alcoholic father, was mother's confidant. Had traumas in life; a miscarriage at 5 months and two full term
stillbirths. 's several years ago and brother's overdose upset her greatly.
After much discussion agrees to go to rehab but I am concerned that her underlying depression and anxiety will not be adequately addressed there. Would do better in geriatric psychiatry unit, such as at [facility]. son in agreement.
States she has not had adequate response from klonopin prn, will try dose of neurontin 100 mg oredered)
Discussed with Ms. [facility] case mgmt
[2025-01-10] MEDS: NEURONTIN 100 MG PO (15:38)
--- NOTE | 2025-01-10 18:00 | PTCARENOTE ---
Received patient from IMU via wheelchair. AAOx3, ambulated to bed with minimal assistance. Assessed and oriented to room. nurse monitoring reading NSR. Call mendez in close reach.
[2025-01-10] MEDS: CRESTOR 5 MG PO (21:22)
[2025-01-10] MEDS: MELATONIN 5 MG PO (21:22)
[2025-01-10] MEDS: REMERON 7.5 MG PO (21:22)
[2025-01-11] MEDS: KLONOPIN 0.5 MG PO ×4 (00:44→20:19)
[2025-01-11 03:46] VITALS: BP 93/45
[2025-01-11] MEDS: SYNTHROID 75 MCG PO (06:07)
[2025-01-11 07:00] VITALS: BP 138/66
[2025-01-11] MEDS: HEPARIN 5000 UNITS SC ×2 (08:23→20:19)
[2025-01-11] MEDS: PROTONIX 40 MG PO (08:23)
--- NOTE | 2025-01-11 10:07 | W.PN.HOSP.TC ---
Addendum entered and electronically signed by Nate Boyd MD 01/11/25 19:35:
Attending Addendum-
I saw and evaluated the patient. I reviewed the resident�s note and agree with findings and plan as documented in the resident�s note. Sub: states she continues to have uncontrolled crying episodes. Denies SI or HI. Denies urinary complaints. Full
12 point ROS reviewed and negative except as documented Exam: Vitals reviewed in chart GEN-NAD heart RRR lungs clear abd soft LE no edema
Plan:
# Acute benzodiazepine overdose
# History uncontrolled anxiety and depression
- on admission UDS + for barbiturates (Was on phenobarbital taper) + benzodiazepines; negative for EtOH
- discontinued paroxetine and started on mirtazapine-01/08
- Continue clonazepam 0.5 mg bid daily and q6hprn
- DC MSAS
- awaiting [facility] bed availability
- 201 signed
- appreciate psych input cont gabapentin q hs
#Anemia�normocytic
- @ baseline
- repeat CBC prn
# AUD
- not in W/D
- DC MSAS
# Asymptomatic bacteriuria
- UA culture grew e. coli
- denies sxs
- no indication to treat
# History of GI bleed in 2023: pantoprazole
# Hypothyroidism s/p thyroidectomy: levothyroxine
# Tobacco Abuse: cessation advised
# History pulmonary fibrosis
# HLD: rosuvastatin
DVT prophylaxis: heparin
Full code
Disposition: to [facility] when able
Time spent coordinating care, review of plan of care with resident, personally reviewed records in EMR, med rec, consults, notes, d/w nursing and CM � 35 mins
Original Note:
Today's Communication/Plan
-
- Continue clonazepam 0.5 mg BID with PRN q6h
- Continue mirtazapine 7.5mg for sleep
- Continue gabapentin 100mg daily before bed
- D/c MSAS
- Plan for discharge to geriatric psych facility, awaiting case mgmt placement
Assessment / Plan
Assessment / Plan
Jena Maldonado is an 84yo F with a hx of alcohol abuse (15yr ago, relapse November 2024), hypothyroidism, HLD, anxiety who presented w benzodiazepine overdose, now stable with MSAS0 on clonazepam & followed by psych, awaiting dispo to geriatric psych
facility.
#Acute benzodiazepine overdose
#Anxiety
#Relapse alcohol use in s/o anxiety, benzo dependence
Pt anxious, restless on presentation, consumed 8-20 tablets of alprazolam over the past few days leading up to 01/06; UDS + for barbiturates (was on phenobarbitol taper) + benzodiazepines; negative for EtOH although endorsed drinking 2 bottles
wine/day once Xanax tables at home ran out October-Dec. Now, pt sx resolved. Endorses feeling depressed and still with some trouble sleeping. Using 1 PRN clonazepam in addition to bid scheduled. Neurontin helps with sleep.
- Continue clonazepam 0.5 mg BID with PRN q6h
- Continue mirtazapine 7.5mg for sleep
- Continue gabapentin 100mg daily before bed
- D/c MSAS
- Plan for discharge to geriatric psych facility, awaiting case mgmt placement
#Asymptomatic bacteriuria
UA culture grew e. coli (schmdit sensitive), no sx
- NTD, no indication to treat
#Chronic issues
# History of GI bleed in 2023: pantoprazole 40 mg daily
#Anemia�normocytic: trend Hgb (10.2 today, MCV 97.4 wnl, Hgb near baseline)
# Hypothyroidism s/p thyroidectomy: levothyroxine 75 mcg daily
# Active smoker: cessation advised
# HLD: rosuvastatin 5mg
# History pulmonary fibrosis
#Global
- DVT prophylaxis: heparin
- Full code
- Fall precautions
- Dispo: to geriatric psych, awaiting placement w case mgmt
Anticipated Discharge: Within 24 hours
Subjective/Interval History
-
Date of Service: January 11, 2025
Pt doing fine this am. Had trouble falling asleep, felt that the neurontin addition to regimen (including remeron & clonazepam) did help. Denies shakiness, jitters, tachycardia, tachypnea, anxiety. Endorses feeling depressed. Aligned with plan for
dispo to geriatric psych facility, per psychiatry team.
Objective Data
-
Vital Signs:
Vital Signs
Temp Pulse Resp BP Pulse Ox
97.5 F 68 16 138/66 96
01/11/25 07:00 01/11/25 07:00 01/11/25 07:00 01/11/25 07:00 01/11/25 07:00
Review of Systems
-
History Source: Patient
Constitutional: Reports Fatigue (trouble sleeping)
Neuro: Reports Other (denies shakiness, jitters)
Psych: Reports Depressed and Anxious (denies)
Physical Exam
-
General: Well Developed, Well Nourished and Comfortable
HEENT: Normocephalic, Atraumatic and Anicteric
Respiratory: Non Labored Respirations
GI: Nondistended
Neuro: Awake, Alert and Oriented
Psych: Calm and Depressed
--- NOTE | 2025-01-11 10:18 | W.PN.UPDATE ---
Update Note
Progress Note Update
pt seen by me this am to assess effects of gabapentin for anxiety as well as confirm willingness for inpatient care. More pleasant, says she was able to get some sleep last night (now out of ICU setting.) Signed 201 with plan to go to [facility] psych
unit. Complains of being 'so weepy' which I emphasized would be a focus of her treatment. Better spirits in general, though still at risk if not sent to inpatient care. Family supports this. 201 left on patient's chart, team made aware.
--- NOTE | 2025-01-11 10:33 | CM ---
Psych now recommending 201 [facility]-psych placement to [facility]
Spoke with Roxana at [facility] [phone]. David is reviewing case.Faxed referral to [phone].
As per Dr Jared Liang 201 is signed on chart .
PLAN Obtained [facility] placement
[2025-01-11 11:00] VITALS: BP 126/62
[2025-01-11 15:00] VITALS: BP 116/68
[2025-01-11] MEDS: REMERON 7.5 MG PO (20:19)
[2025-01-11] MEDS: NEURONTIN 100 MG PO (20:19)
[2025-01-11] MEDS: CRESTOR 5 MG PO (20:19)
[2025-01-11] MEDS: MELATONIN 5 MG PO (20:19)
[2025-01-11 23:30] VITALS: BP 102/53
[2025-01-12] MEDS: SYNTHROID 75 MCG PO (05:26)
[2025-01-12 07:25] VITALS: BP 103/77
[2025-01-12] MEDS: KLONOPIN 0.5 MG PO ×3 (08:39→19:36)
[2025-01-12] MEDS: HEPARIN 5000 UNITS SC (08:39)
[2025-01-12] MEDS: PROTONIX 40 MG PO (08:40)
--- NOTE | 2025-01-12 10:14 | W.PN.HOSP.TC ---
Addendum entered and electronically signed by Nate Boyd MD 01/12/25 20:55:
Attending Addendum-
I saw and evaluated the patient. I reviewed the resident�s note and agree with findings and plan as documented in the resident�s note. Sub: continues to have uncontrollable and intermittent crying episodes. Physically feels good and emotionally
states she feels the same. Denies SI or HI. Denies urinary complaints. Full 12 point ROS reviewed and negative except as documented Exam: Vitals reviewed in chart GEN-NAD heart RRR lungs clear abd soft LE no edema Neuro AAO x 3 MS 09/20 Psych- calm
appropriate doesnt have a flat affect
Plan:
# Acute benzodiazepine overdose-likely intentional
# History uncontrolled anxiety and depression
- on admission UDS + for barbiturates (Was on phenobarbital taper) + benzodiazepines; negative for EtOH
- discontinued paroxetine, mirtazapine started -01/08- increase dose 01/12
- Continue clonazepam 0.5 mg bid and q6h prn
- DC MSAS
- awaiting [facility] bed availability
- 201 signed
- appreciate psych input
- cont gabapentin q hs
#Anemia�normocytic
- @ baseline
- repeat CBC prn
# AUD
- not in W/D
- DC MSAS
# Asymptomatic bacteriuria
- UA culture grew e. coli
- denies sxs
- no indication to treat
# History of GI bleed in 2023: pantoprazole
# Hypothyroidism s/p thyroidectomy: levothyroxine
# Tobacco Abuse: cessation advised
# History pulmonary fibrosis
# HLD: rosuvastatin
DVT prophylaxis: heparin
Full code
Disposition: to [facility] when able
Time spent coordinating care, review of plan of care with resident, personally reviewed records in EMR, med rec, consults, notes, d/w nursing and CM � 36 mins
Original Note:
Today's Communication/Plan
-
- Pending case mgmt [facility]
Assessment / Plan
Assessment / Plan
Jena Maldonado is an 84yo F with a hx of alcohol abuse (15yr ago, relapse November 2024), hypothyroidism, HLD, anxiety who presented w benzodiazepine overdose, now stable with MSAS0 on clonazepam & followed by psych, awaiting dispo to geriatric psych
facility.
#Acute benzodiazepine overdose
#Anxiety, depression
#Relapse alcohol use in s/o anxiety, benzo dependence
Pt anxious, restless on presentation, consumed 8-20 tablets of alprazolam over the past few days leading up to 01/06; UDS + for barbiturates (was on phenobarbitol taper) + benzodiazepines; negative for EtOH although endorsed drinking 2 bottles
wine/day once Xanax tables at home ran out October-Dec. Now, pt sx resolved. Endorses feeling depressed and still with some trouble sleeping. Using 1 PRN clonazepam in addition to bid scheduled. Neurontin helps with sleep.
- Continue clonazepam 0.5 mg BID with PRN q6h
- Continue mirtazapine 7.5mg for sleep
- Continue gabapentin 100mg daily before bed
- Pending psych recs re: SSRI restarting/dosing
- Plan for discharge to geriatric psych facility, awaiting case mgmt confirming placement
#Chronic issues
# History of GI bleed in 2023: pantoprazole 40 mg daily
#Anemia�normocytic: trend Hgb (10.2 today, MCV 97.4 wnl, Hgb near baseline)
# Hypothyroidism s/p thyroidectomy: levothyroxine 75 mcg daily
# Active smoker: cessation advised
# HLD: rosuvastatin 5mg
# History pulmonary fibrosis
#Global
- DVT prophylaxis: heparin
- Full code
- Fall precautions
- Dispo: to geriatric psych, awaiting placement w case mgmt (plan for [facility], reviewing her chart)
Anticipated Discharge: Today
Subjective/Interval History
-
Date of Service: January 12, 2025
Son & daughter in law at bedside. Pt still feeling anxious/down, ready to leave. Sleeping better w gabapentin & remeron. Still using 1 PRN clonazepam + BID dosing. Understands plan waiting for rehab placement. Family curious about restarting SSRI.
Objective Data
-
Vital Signs:
Vital Signs
Temp Pulse Resp BP Pulse Ox
98.8 F 70 18 103/77 96
01/12/25 07:25 01/12/25 07:25 01/12/25 07:25 01/12/25 07:25 01/12/25 07:25
I&O
01/11/25 01/12/25 01/13/25
06:59 06:59 06:59
Intake Total 780 / 780
Balance 780 / 780
Review of Systems
-
History Source: Patient and Family
Constitutional: Reports No Symptoms
Neuro: Reports No Symptoms
Psych: Reports Sad and Anxious
Physical Exam
-
General: Well Developed, Well Nourished and Conversant
HEENT: Normocephalic, Atraumatic and Anicteric
Respiratory: Non Labored Respirations
Cardiac: Regular Rhythm
Neuro: Awake, Alert and Oriented
Psych: Depressed
Data Reviewed
-
Total Time Spent with Patient (in minutes): 10
Critical Care Time (in minutes): 15
[2025-01-12 10:55] VITALS: BP 105/64; BP 118/63; PULSE 79; O2SAT 95
--- NOTE | 2025-01-12 11:46 | CM ---
Addendum entered by Mike Ziegler 01/12/25 15:00:
Left another message for David at [facility].
Discussed with Psychiatry. Referral forwarded to Dr. Alfonso Alarcon at [facility]. Awaiting his review of records and determination.
Spoke with [facility] with on speaker phone. Updated them that we are looking for alternative facilities. Expressed understanding.
Addendum entered by Mike Ziegler 01/12/25 13:43:
Called and spoke with David at [facility]. He said he did not receive all the records. Some did not transmit. Based on his review he will not accept. She needs a duo-dx unit with SA and psych. He did say that he did not receive the psychiatrist
notes. He is willing to review. This CM just faxed all the psych reports to him.
Original Note:
Called and left message for David [phone] @ [facility] for determination.
--- NOTE | 2025-01-12 12:41 | W.PN.UPDATE ---
Update Note
Progress Note Update
patient seen chart reviewed. spoke with dr hdz from psych as well as nursing and patient's daughter in law also named mayte. the patient is well known to me. d in law gave me more hx regarding issues with benzos. patient had used klonpin ativan
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 (o.5 mg reportedly). d in law feels the patient suffers from anxiety depression and addiction
issues. patient is agreeable to transfer to psych unit and application has been made to [facility]. sent tiger text to cm to find out where we are in the process. noted remeron started 7.5 mg. would increase to 15 mg. noted in reviewing labs
that for the most part sodium has been wnl. it was only this month w inc in etoh use that sodium was dropping . obviously will need to monitor sodium but remeron likely a little better than other re hyponatremia. patient is calm easy to enage.
she was watching the horrific news of a [employer] school shooting in [place] while the children were at mass. this was very emtional for her. 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 will follow
[2025-01-12 15:23] VITALS: BP 120/63
[2025-01-12] MEDS: HEPARIN SC (19:35)
[2025-01-12] MEDS: REMERON 7.5 MG PO ×2 (19:36→21:23)
[2025-01-12] MEDS: MELATONIN 5 MG PO (19:36)
[2025-01-12] MEDS: CRESTOR 5 MG PO (19:36)
[2025-01-12] MEDS: NEURONTIN 100 MG PO (19:36)
[2025-01-12 23:19] VITALS: BP 120/61
[2025-01-13] MEDS: SYNTHROID 75 MCG PO (05:41)
--- NOTE | 2025-01-13 07:19 | W.PN.HOSP.TC ---
Addendum entered and electronically signed by Nate Boyd MD 01/13/25 23:28:
Attending Addendum-
I saw and evaluated the patient. I reviewed the resident�s note and agree with findings and plan as documented in the resident�s note. Sub: feels the same. Denies SI or HI. Denies urinary complaints. Anxious about going to [facility]. Full
12 point ROS reviewed and negative except as documented Exam: Vitals reviewed in chart GEN-NAD heart RRR lungs clear abd soft LE no edema Neuro AAO x 3 MS 09/20 Psych- anxious appearing
Plan:
# Acute benzodiazepine overdose-likely intentional
# History uncontrolled anxiety and depression
- on admission UDS + for barbiturates (Was on phenobarbital taper) + benzodiazepines; negative for EtOH
- discontinued paroxetine, mirtazapine started -01/08- increase dose 01/12
- Continue clonazepam 0.5 mg bid and q6h prn
- 201 signed
- appreciate psych input
- cont gabapentin q hs
-DC to [facility]
#Anemia�normocytic
- @ baseline
- repeat CBC prn
# AUD
- not in W/D
- DC MSAS
# Asymptomatic bacteriuria
- UA culture grew e. coli
- denies sxs
- no indication to treat
# History of GI bleed in 2023: pantoprazole
# Hypothyroidism s/p thyroidectomy: levothyroxine
# Tobacco Abuse: cessation advised
# History pulmonary fibrosis
# HLD: rosuvastatin
DVT prophylaxis: heparin
Full code
Disposition: to [facility]
Time spent coordinating care, DC planning, review of DC plan of care with resident, transition of care, review of records, med rec/scripts sent electronically, consults, notes, d/w consultants, nursing, family, and CM� 31 mins >50% of this time was
devoted to counseling and coordination of care
Original Note:
Today's Communication/Plan
-
- Continue clonazepam 0.5 mg BID with PRN q6h
- Increase mirtazapine 15mg for sleep, per psych
- Continue gabapentin 100mg daily before bed
- Plan for discharge to geriatric psych facility, awaiting case mgmt confirming placement
Assessment / Plan
Assessment / Plan
Jena Maldonado is an 84yo F with a hx of alcohol abuse (15yr ago, relapse November 2024), hypothyroidism, HLD, anxiety who presented w benzodiazepine overdose, now stable with last MSAS0 on clonazepam & followed by psych, awaiting dispo to geriatric
psych facility.
#Acute benzodiazepine overdose
#Anxiety, depression
#Relapse alcohol use in s/o anxiety, benzo dependence
Pt anxious, restless on presentation, consumed 8-20 tablets of alprazolam over the past few days leading up to 01/06; UDS + for barbiturates (was on phenobarbitol taper) + benzodiazepines; negative for EtOH although endorsed drinking 2 bottles
wine/day once Xanax tables at home ran out October-Dec. Now, pt sx resolved. AVSS. Endorses feeling down & anxious. Using 1 PRN clonazepam in addition to bid scheduled. Neurontin helps with sleep.
- Continue clonazepam 0.5 mg BID with PRN q6h
- Increase mirtazapine 15mg for sleep, per psych
- Continue gabapentin 100mg daily before bed
- Plan for discharge to geriatric psych facility, awaiting case mgmt confirming placement
#Chronic issues
# History of GI bleed in 2023: pantoprazole 40 mg daily
#Anemia�normocytic: trend Hgb (10.2 today, MCV 97.4 wnl, Hgb near baseline)
# Hypothyroidism s/p thyroidectomy: levothyroxine 75 mcg daily
# Active smoker: cessation advised
# HLD: rosuvastatin 5mg
# History pulmonary fibrosis
#Global
- DVT prophylaxis: heparin
- Full code
- Fall precautions
- Dispo: to geriatric psych, awaiting placement w case mgmt - 01/13 denied from [facility], case mgmt put in referral to [facility]
Anticipated Discharge: Within 24 hours
Subjective/Interval History
-
Date of Service: January 13, 2025
States that there are no changes from yesterday in terms of mood (still feeling depressed) or symptoms (still no shaking/palpitations/SOB). Able to sleep last night. Awaiting discharge, understands that it can be a long process.
Objective Data
-
Vital Signs:
Vital Signs
Temp Pulse Resp BP Pulse Ox
97.9 F 64 16 120/61 95
01/12/25 23:19 01/12/25 23:19 01/12/25 23:19 01/12/25 23:19 01/12/25 23:19
I&O
01/12/25 01/13/25 01/14/25
06:59 06:59 06:59
Intake Total 780 / 780 1680 / 1680
Balance 780 / 780 1680 / 1680
Review of Systems
-
History Source: Patient
Constitutional: Reports Sleep Disturbance (mild trouble sleeping, able to sleep once asleep )
Respiratory: Reports Trouble Breathing (denies)
Cardiac: Reports Palpitations (denies)
Neuro: Reports Tremors (denies)
Psych: Reports Depressed and Anxious
Physical Exam
-
General: Well Developed, Well Nourished and No Apparent Distress
HEENT: Normocephalic, Atraumatic and Anicteric
Respiratory: Non Labored Respirations
Cardiac: Regular Rhythm
GI: Nondistended
Neuro: AO x 3
Psych: Depressed
Data Reviewed
-
Total Time Spent with Patient (in minutes): 5
Critical Care Time (in minutes): 15
[2025-01-13] MEDS: KLONOPIN 0.5 MG PO (07:53)
[2025-01-13] MEDS: PROTONIX 40 MG PO (07:53)
[2025-01-13] MEDS: FLUSH (NSS) 1 FLUSH IV (07:55)
[2025-01-13] MEDS: HEPARIN SC (07:57)
[2025-01-13 08:01] VITALS: BP 113/80
--- NOTE | 2025-01-13 08:53 | CM ---
Addendum entered by Linda Murray 01/13/25 12:56:
Auth received patient has been approved for 7 days inpatient, 01/13/25 to 01/19/25, Auth [id number], follow up with Khloe Gonzalez
[phone]
Plan: Patient to transfer to [facility] inpatient psych today by ambulance
Report; [phone]
Addendum entered by Linda Murray 01/13/25 11:48:
Patient has been accepted at [facility] today, will obtain Auth. Physician, patient and family are aware.
Original Note:
Chart reviewed and patient has been denied at [facility], per admissions patient may need dual diagnosis. Referral sent to [facility] yesterday waiting on a determination.
Plan: Inpatient psych placement, patient is a 201, voluntary admission to inpatient psychiatry facility.
--- NOTE | 2025-01-13 10:18 | W.PN.UPDATE ---
Update Note
Progress Note Update
spoke to dr irizarry psychiatrist at [facility]. he agrees to admit for [facility] hopefully today. spoke with cm ms morejon. need to get auth and arrange transport through [facility] [phone]. patient w depression and anxiety as well as addiction
issues (bzp and etoh ) goal to taper klonopin...no bzps subsequently find a med regimen that will ameliorate depression and anxiety and consider dc to [facility]. patient continues to grieve the of her son via overdose ..hopefully can be addressed
in therapy. needs encouragement to reengage with friends and activities
--- NOTE | 2025-01-13 12:45 | W.PN.UPDATE ---
Update Note
Progress Note Update
patient seen chart reviewed. spoke with nursing case mgt. family including son and daughter in law also named mayte at bedside. the patient has been accepted to [facility] unit pending insurance auth and transport. she is not exactly in a
positive frame of mind. she is upset that she has been here for so long at and wants to get on with her treatment although her first choice would be to go home not to psych although her family who seem very supportive has made it clear that they
strongly believe she needs to go to psych. she tends to minimize her etoh and bzp use as well as the extent of her dysphoria and anxiety. she will need treatment to help her w psych sx....her serum sodium at this point is normal. hopefully it will
remain normal with the institution of remeron at 15 mg. will need to be followed. hopefully mrs [facility] will be tranferred to [facility] later today.
[2025-01-13 15:45] VITALS: BP 111/71
--- NOTE | 2025-01-13 15:59 | W.DCSUMMARY ---
Addendum entered and electronically signed by Nate Boyd MD 01/13/25 23:29:
Read, reviewed, and agree. See same day progress note for additional details.
Avelino Boyd MD
Original Note:
Documented by User: Jasmyne Lou MD, Resident 01/13/25 16:18
Discharge Summary
Discharge Data
Date of Admission: 01/06/25
Date of Discharge: 01/13/25
Total time spent discharging patient (in min): 30
-
Pending Results: No
Hospital Course
Discharging Physician : Nate Torres; Jasmyne Lou
Disposition : To [facility]
Primary care physician : Natasha George NP [Family Provider, Internal Medicine]
Principal Discharge diagnoses : Acute benzodiazepine overdose in the setting of withdrawal; anxiety; relapse alcohol use disorder
Chronic Discharge diagnoses : Normocytic anemia; hypothyroidism status post thyroidectomy; hyperlipidemia; pulmonary fibrosis
Hospital Course :
1. Acute benzodiazepine overdose in the setting of withdrawal; anxiety; relapse alcohol use disorder
Patient presented from home on 01/06/25, where she lives with her son, due to feeling shaky and anxious. She receives a prescription of Xanax for anxiety. In October she used up her 90-day supply early and began drinking wine (up to 2 bottles a day)
from mid October through mid December to compensate for shakiness and anxiety. This was the first time she drank alcohol in 15 years since recovering from alcohol use disorder. The week prior to admission she was admitted to the hospital for alcohol
withdrawal and was given Ativan tablets. She was discharged with Ativan but took 7x0.5 mg tablets in 1 day. She was then prescribed Xanax on 01/03 but took 25x0.5 mg tablets over the course of 2 days. Patient had presented and been discharged early
morning of 01/06 from the ED due to feeling out of it and unsteady s/p falls at home in the past 2 weeks. She reported taking Ativan (8 tablets) the day prior, 01/05.
On presentation on 01/06, patient endorsed feeling depressed but denied suicidal ideation. Patient vital signs were stable on admission. Alcohol was not detected on urine drug screen on admission . UDS was positive for barbiturates (was on a
phenobarbital taper) and benzodiazepines.
Patient was monitored for signs of alcohol/benzo withdrawal, MSAS score was trended. Initial score was 1, trended down to 0 prior to discharge. Patient was stabilized on regimen of clonazepam 0.5 mg twice daily in addition to 1 tablet as needed.
Patient was using 1 tablet of PRN clonazepam daily at time of discharge. Patient was also started on gabapentin 100 mg daily before bed and mirtazapine 15 mg daily before bed. Throughout hospitalization patient endorsed feeling depressed,
anxious, with trouble sleeping. She did state that the medication regimen helped with sleep. Met with psychiatrist throughout admission and discussed plan for admission to geriatric psychiatry facility. Paxil was stopped.
2. Other
- Urine culture grew pansensitive E. coli. Deemed asymptomatic bacteriuria, no indication to treat.
- Patient hemoglobin 10 near baseline throughout admission.
Important imaging findings : N/A
Procedure findings : N/A
Discharge Plan
-
Patient Disposition: Psych Facility
Discharge Diagnosis/Procedures: Benzodiazepine overdose�accidental
Alcohol abuse
Acute metabolic encephalopathy
Condition: Fair
Diet: No restrictions
Additional Diets: Avoid alcohol use
Activity: As tolerated
Driving Restrictions: Not until seen by your Dr
Bathing Restrictions: None
Blood Work: None
Others Tests: None
Activity Restrictions/Additional Instructions:
Referral for psychiatrist provided, can help manage your benzodiazepine & SSRI regimen after leaving facility.
Do not keep alcoholic beverages in the house, avoid alcohol use with benzodiazepines
Referrals:
Natasha George NP [Family Provider, Internal Medicine]
Rupa Dean MD [Active, Psychiatry]
Additional Discharge Medication Instructions: Take clonazepam 0.5 mg twice daily for anxiety
Start mirtazapine 15 mg nightly for anxiety and sleep aid
Can use clonazepam 0.5 mg as needed nightly for sleep aid if Remeron is not effective
Do not drink alcohol while on the above medications
Prescriptions:
New
clonazepam 0.5 mg Tablet
0.5 mg PO BID 7 Days Qty: 14 0RF
clonazepam [Klonopin] 0.5 mg tablet
0.5 mg PO HS PRN (Reason: Sleep) 7 Days Qty: 7 0RF
mirtazapine 15 mg Tablet
15 mg PO HS 30 Days Qty: 30 0RF
Continued
rosuvastatin 5 mg Tablet
5 mg PO HS
levothyroxine [Synthroid] 75 mcg Tablet
75 mcg PO DAILY
acetaminophen 500 mg Tablet
500 mg PO Q6HPRN PRN (Reason: mild pain)
pantoprazole 40 mg tablet,delayed release (DR/EC)
40 mg PO DAILY
bisacodyl [Dulcolax (bisacodyl)] 5 mg Tablet,Delayed Release (Dr/Ec)
10 mg PO DAILYPRN PRN (Reason: constipation )
Discontinued
paroxetine HCl 10 mg tablet
5 mg PO DAILY
alprazolam
0.5 mg PO HS
Patient Comments:
Patient used 25 of her Xanax tablets in the last 2 days
Discharge Orders:
Discharge Patient (As Directed); Ordered 01/13/25
Ordered By: Jasmyne Lou
Discharge Date and Time
Discharge Date/Time: 01/13/25 16:50
Print Language: BELGIAN

Documented by User: Nate Boyd MD 01/13/25 23:27
Discharge Summary
Discharge Data
Date of Admission: 01/06/25
Date of Discharge: 01/13/25
Discharge Plan
-
Patient Disposition: Psych Facility
Discharge Diagnosis/Procedures: Benzodiazepine overdose�accidental
Alcohol abuse
Acute metabolic encephalopathy
Condition: Fair
Diet: No restrictions
Additional Diets: Avoid alcohol use
Activity: As tolerated
Driving Restrictions: Not until seen by your Dr
Bathing Restrictions: None
Blood Work: None
Others Tests: None
Activity Restrictions/Additional Instructions:
Referral for psychiatrist provided, can help manage your benzodiazepine & SSRI regimen after leaving facility.
Do not keep alcoholic beverages in the house, avoid alcohol use with benzodiazepines
Referrals:
Natsaha George NP [Family Provider, Internal Medicine]
Rupa Dean MD [Active, Psychiatry]
Additional Discharge Medication Instructions: Take clonazepam 0.5 mg twice daily for anxiety
Start mirtazapine 15 mg nightly for anxiety and sleep aid
Can use clonazepam 0.5 mg as needed nightly for sleep aid if Remeron is not effective
Do not drink alcohol while on the above medications
Prescriptions:
New
clonazepam 0.5 mg Tablet
0.5 mg PO BID 7 Days Qty: 14 0RF
clonazepam [Klonopin] 0.5 mg tablet
0.5 mg PO HS PRN (Reason: Sleep) 7 Days Qty: 7 0RF
mirtazapine 15 mg Tablet
15 mg PO HS 30 Days Qty: 30 0RF
Continued
rosuvastatin 5 mg Tablet
5 mg PO HS
levothyroxine [Synthroid] 75 mcg Tablet
75 mcg PO DAILY
acetaminophen 500 mg Tablet
500 mg PO Q6HPRN PRN (Reason: mild pain)
pantoprazole 40 mg tablet,delayed release (DR/EC)
40 mg PO DAILY
bisacodyl [Dulcolax (bisacodyl)] 5 mg Tablet,Delayed Release (Dr/Ec)
10 mg PO DAILYPRN PRN (Reason: constipation )
Discontinued
paroxetine HCl 10 mg tablet
5 mg PO DAILY
alprazolam
0.5 mg PO HS
Patient Comments:
Patient used 25 of her Xanax tablets in the last 2 days
Discharge Orders:
Discharge Patient (As Directed); Ordered 01/13/25
Ordered By: Jasmyne Lou
Discharge Date and Time
Discharge Date/Time: 01/13/25 16:50
Print Language: BELGIAN
== END 2025-01-13 16:50 | DRG 917 ==
LOC: 4 EAST ACU 16:51
PROVIDERS: Clinical Nurse Specialist Family Health; Internal Medicine; Nurse Practitioner; ADMITTING PHYSICIAN Hospitalist; ATTENDING PHYSICIAN Family Medicine; CONSULT PHYSICIAN Psychiatry & Neurology Psychiatry; EMERGENCY PHYSICIAN Emergency Medicine; FAMILY PHYSICIAN Internal Medicine
DX: T42.4X1A Poisoning by benzodiazepines, accidental (unintentional), initial encounter (principal); G93.41 Metabolic encephalopathy; F10.939 Alcohol use, unspecified with withdrawal, unspecified; F41.9 Anxiety disorder, unspecified; E89.0 Postprocedural hypothyroidism; J84.10 Pulmonary fibrosis, unspecified; B96.20 Unspecified Escherichia coli [E. coli] as the cause of diseases classified elsewhere; F17.200 Nicotine dependence, unspecified, uncomplicated; Z91.81 History of falling; E78.00 Pure hypercholesterolemia, unspecified; G47.00 Insomnia, unspecified; K59.00 Constipation, unspecified; M41.9 Scoliosis, unspecified; M81.0 Age-related osteoporosis without current pathological fracture; Z79.890 Hormone replacement therapy; Z79.899 Other long term (current) drug therapy; Z90.710 Acquired absence of both cervix and uterus
CPT/HCPCS: 80053; 85025; 96361; 96374; 96375; 96376; 97116; 97162; 99284

== ENCOUNTER → 2025-01-25 16:46 | Outpatient (REF) | payer MEDICARE, SELFPAY | LOC: MRI 3T 16:46 | PROVIDERS: ATTENDING PHYSICIAN Registered Nurse; FAMILY PHYSICIAN Internal Medicine | DX: M54.6 Pain in thoracic spine (principal) | CPT/HCPCS: 72146 ==

== ENCOUNTER → 2025-04-25 15:27 | Outpatient (REF) | payer MEDICARE, SELFPAY ==
[2025-04-25 16:00] LABS: Hematocrit 37.9 % (37.0-47.0); Hemoglobin 12.2 g/dL (12.0-16.0); Mean Corp Hgb Conc. 32.2 g/dL (33.0-37.0); Mean Corpuscular Volume 99.7 fL (81.0-99.0); Nucleated Red Blood Cells % 0 %; Platelet Count 274 10^3/uL (130-400); Red Cell Dist. Width 14.0 % (11.5-14.5)
[2025-04-25 16:16] LABS: ALT (SGPT) 18 U/L (0-35); AST (SGOT) 31 U/L (14-36); Albumin 4.7 g/dl (3.5-5.0); Alkaline Phosphatase 44 U/L (38-126); Amylase 82 U/L (30-110); Blood Urea Nitrogen 24 mg/dl (7-17); Calcium 9.6 mg/dl (8.4-10.2); Carbon Dioxide 26 mmol/L (22-30); Chloride 105 mmol/L (98-107); Glucose 96 mg/dl (70-99); Lipase 296 U/L (23-300); Potassium 4.2 mmol/L (3.5-5.1); Sodium 137 mmol/L (135-145); Total Protein 8.2 g/dl (6.3-8.2); eGFR > 60.00
== END ==
LOC: REG 15:27
PROVIDERS: ATTENDING PHYSICIAN Internal Medicine
DX: R63.0 Anorexia (principal); R11.0 Nausea; Z87.11 Personal history of peptic ulcer disease
CPT/HCPCS: 36415; 80053; 82150; 83690; 85025